=== PATIENT | female | born 1950 | race Asian ===

== ENCOUNTER 2020-01-22 10:18 | Inpatient (IN) | payer SELFPAY ==
[~2020-01-22] VITALS: Ht 152.4 cm; Wt 48.2 kg
[2020-01-22 10:40] VITALS: BP 152/123
[2020-01-22] MEDS ORDERED: ASPIRIN81 MG ORAL (10:57)
[2020-01-22] MEDS ORDERED: ATENOLOL50 MG ORAL (10:57)
[2020-01-22] MEDS ORDERED: AMLODIPINE BESY10 MG ORAL (10:57)
[2020-01-22] MEDS ORDERED: CLOPIDOGREL75 MG ORAL (10:57)
[2020-01-22] MEDS ORDERED: PACERONE100 MG ORAL (10:57)
--- NOTE | 2020-01-22 11:27 | Emergency Room Report ---
History of Present Illness General Chief Complaint: Hypertension Source: Patient, Family Member Present Illness HPI This patient is accompanied by her daughter. The daughter is the primary historian. The patient is from [facility] and only speaks Faroese. She returned from [facility] 2 months ago. She has a history of atrial fibrillation. She presents because she has had a rapid heart rate, generalized weakness, high blood pressure and some difficulty breathing. She denies fever or chills, cough or congestion, nausea or vomiting. She has no other complaints. 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: No Patient History Past Medical History: HTN, AFib Social History: Denies: smoking, alcohol use, drug use Reviewed Nursing Documentation: PMH: Agreed; PSxH: Agreed Nursing Documentation-PMH Hx Cardiac Problems: Yes - BLOOD CLOTS 20YRS AGO Hx Hypertension: Yes Review of Systems All Other Systems: negative except mentioned in HPI Physical Exam Vital Signs Date Time Temp Pulse Resp B/P (MAP) Pulse Ox O2 Delivery O2 Flow Rate FiO2 01/22/20 10:35 98.4 110 19 152/123 (133) 98 Room Air Sp02 EP Interpretation: reviewed, normal General Appearance: no apparent distress, alert, GCS 15, non-toxic Head: normocephalic, atraumatic Eyes: bilateral eye normal inspection, bilateral eye PERRL ENT: hearing grossly normal, normal pharynx, no angioedema, normal voice Neck: normal inspection, full range of motion Respiratory: chest non-tender, lungs clear, normal breath sounds, no respiratory distress, no retraction, no accessory muscle use, speaking full sentences Cardiovascular #1: no edema, tachycardia, irregularly irregular Gastrointestinal: normal bowel sounds, non tender, soft, non-distended, no guarding, no rebound Rectal: deferred Musculoskeletal: back normal, normal range of motion, calf tenderness, gait/ station normal, non-tender Neurologic: alert, motor strength/tone normal, oriented x3, sensory intact, responsive, speech normal Psychiatric: judgement/insight normal, memory normal, mood/affect normal, no suicidal/homicidal ideation Skin: no rash, normal color Medical Decision Making Diagnostic Impression: Primary Impression: Atrial fibrillation with RVR Additional Impressions: Pneumonia Suspected COVID-19 virus infection Transaminitis Renal failure ER Course This patient presents with A. fib with RVR. The patient's rate was relatively controlled with rates in the high 90s and low 100s. More concerning, was the patient's finding on chest x-ray which showed a right lower lobe opacity. Also , the patient was found to have lymphopenia, transaminitis and renal failure which is also consistent with COVID-19. I suspect the patient has a COVID-19 infection. However, the patient is overall well-appearing. Patient's oxygen saturation is within normal limits on room air. She did not require any type of respiratory intervention. I did go ahead and treat the patient with broad- spectrum antibiotics for possible community-acquired pneumonia. I also gave the patient a dose of oral Eliquis as current thought on COVID-19 infections that there is coagulopathy related to micro thrombosis. Given the patient's known atrial fibrillation and DVT, the patient is high risk if she indeed has COVID-19. The patient will be admitted for further monitoring and further evaluation and treatment. This patient was evaluated in the context of the global COVID-19 pandemic, which necessitated consideration that the patient might be at risk for infection with the [id number] virus that causes COVID-19. Institutional protocols and algorithms that pertain to the evaluation of patients at risk for COVID-19 and the state of rapid change based on information released by multiple regulatory bodies including the CDC and federal and state organizations. These policies and algorithms were followed during the patient' s care in the ED. Laboratory Tests Test 01/22/20 11:25 White Blood Count 9.2 K/UL (4.8-10.8) Red Blood Count 4.37 M/UL (4.20-5.40) Hemoglobin 13.7 G/DL (12.0-16.0) Hematocrit 39.1 % (37.0-47.0) Mean Corpuscular Volume 89 FL (80-99) Mean Corpuscular Hemoglobin 31.5 PG (27.0-31.0) H Mean Corpuscular Hemoglobin Concent 35.2 G/DL (32.0-36.0) Red Cell Distribution Width 14.0 % (11.6-14.8) Platelet Count 174 K/UL (150-450) Mean Platelet Volume 7.3 FL (6.5-10.1) Neutrophils (%) (Auto) 76.5 % (45.0-75.0) H Lymphocytes (%) (Auto) 17.5 % (20.0-45.0) L Monocytes (%) (Auto) 5.3 % (1.0-10.0) Eosinophils (%) (Auto) 0.0 % (0.0-3.0) Basophils (%) (Auto) 0.7 % (0.0-2.0) Sodium Level 136 MMOL/L (136-145) Potassium Level 4.6 MMOL/L (3.5-5.1) Chloride Level 100 MMOL/L (98-107) Carbon Dioxide Level 22 MMOL/L (21-32) Anion Gap 14 mmol/L (5-15) Blood Urea Nitrogen 44 mg/dL (7-18) H Creatinine 1.8 MG/DL (0.55-1.30) H Estimated Glomerular Filtration Rate 27.8 mL/min (>60) Glucose Level 138 MG/DL (74-106) H Calcium Level 8.2 MG/DL (8.5-10.1) L Total Bilirubin 0.8 MG/DL (0.2-1.0) Aspartate Amino Transferase (AST) 121 U/L (15-37) H Alanine Aminotransferase (ALT) 147 U/L (12-78) H Alkaline Phosphatase 120 U/L (46-116) H Troponin I 0.003 ng/mL (0.000-0.056) Total Protein 6.6 G/DL (6.4-8.2) Albumin 3.2 G/DL (3.4-5.0) L Globulin 3.4 g/dL Albumin/Globulin Ratio 0.9 (1.0-2.7) L Thyroid Stimulating Hormone (TSH) 4.475 uiU/mL (0.358-3.740) Free Thyroxine 1.39 NG/DL (0.76-1.46) Free Triiodothyronine 1.3 pg/mL (2.3-4.2) L EKG Diagnostic Results Rate: tachycardiac Rhythm: other - A.fib ST Segments: no acute changes Other Impression RBBB Rhythm Strip Diag. Results EP Interpretation: yes Rate: 100's Rhythm: other - A.fib Chest X-Ray Diagnostic Results Chest X-Ray Diagnostic Results : Chest X-Ray Ordered: Yes # of Views/Limited/Complete: 1 View Indication: Chest Pain EP Interpretation: Yes Interpretation: other - LLL opacity. Impression: Other - LLL PNA Electronically Signed by: Beth Andre DO CT/MRI/US Diagnostic Results CT/MRI/US Diagnostic Results : Imaging Test Ordered: CT head, CT Chest: Impression CT head: No acute findings. Specifically no intracranial bleed, mass effect or edema. See official report. CT Chest:IMPRESSION: RIGHT LUNG INFILTRATES IN THE RIGHT MIDLUNG ALONG THE FISSURE AND ALSO ALONG THE RIGHT HEART MARGIN. BILATERAL PLEURAL EFFUSIONS RIGHT GREATER THAN LEFT. PATTERN OF INFILTRATES AND EFFUSIONS NOT TYPICAL FOR A VIRAL PNEUMONITIS. SUSPICION FOR COVID 19 IS LOW. Last Vital Signs Date Time Temp Pulse Resp B/P (MAP) Pulse Ox O2 Delivery O2 Flow Rate FiO2 01/22/20 10:35 98.4 110 19 152/123 (133) 98 Room Air Disposition: ADMITTED INPATIENT Condition: Serious Beth Andre DO January 22, 2020 11:27
[2020-01-22] MEDS ORDERED: Azithromycin 500 MG in NS 275 ML IV ONE (11:30)
[2020-01-22] MEDS ORDERED: cefTRIAXone 1 GM in NS 55 ML IVPB ONE (11:30)
--- NOTE | 2020-01-22 11:30 | Diagnostic Imaging Report ---
Procedure: XRAY Chest 1v Reason for study: Shortness of breath. Comparison films: None. FINDINGS: A single one view chest is obtained. There is mild to moderate vascular prominence. Right basilar infiltrate with small right effusion noted. There is cardiomegaly . The bony thorax appear unremarkable. IMPRESSION: Right basilar infiltrate and small effusion.
[2020-01-22 11:35] LABS: BASOPHILS % (AUTO) 0.7 % (0.0-2.0); HEMATOCRIT 39.1 % (37.0-47.0); HEMOGLOBIN 13.7 G/DL (12.0-16.0); LYMPHOCYTES % (AUTO) 17.5 % (20.0-45.0); MEAN CORPUSCULAR VOLUME 89 FL (80-99); MONOCYTES % (AUTO) 5.3 % (1.0-10.0); NEUTROPHILS % (AUTO) 76.5 % (45.0-75.0); PLATELET COUNT 174 K/UL (150-450); RED BLOOD COUNT 4.37 M/UL (4.20-5.40); WHITE BLOOD COUNT 9.2 K/UL (4.8-10.8)
[2020-01-22 11:46] LABS: ANION GAP 14 mmol/L (5-15); BLOOD UREA NITROGEN 44 mg/dL (7-18); CALCIUM 8.2 MG/DL (8.5-10.1); CARBON DIOXIDE 22 MMOL/L (21-32); CHLORIDE 100 MMOL/L (98-107); CREATININE 1.8 MG/DL (0.55-1.30); POTASSIUM 4.6 MMOL/L (3.5-5.1); SODIUM 136 MMOL/L (136-145)
[2020-01-22 12:01] LABS: ALANINE AMINOTRANSFERASE 147 U/L (12-78); ALBUMIN 3.2 G/DL (3.4-5.0); ALBUMIN/GLOBULIN RATIO 0.9 (1.0-2.7); ALKALINE PHOSPHATASE 120 U/L (46-116); ASPARTATE AMINO TRANSFERASE 121 U/L (15-37); BILIRUBIN,TOTAL 0.8 MG/DL (0.2-1.0)
[2020-01-22 12:30] VITALS: BP 135/101
--- NOTE | 2020-01-22 14:00 | Diagnostic Imaging Report ---
EXAM: CT CT Head no Contrast INDICATION: Reason For Exam: AMS. TECHNIQUE: Axial images of the brain were obtained with subsequent sagittal and coronal reformats. All CT scans at this facility are performed using dose modulation techniques as appropriate to a performed exam including the following: automated exposure control with adjustment of the mA and/or kV according to patient size. COMPARISON STUDY: None. RADIATION DOSE: CTDIvol: 53.4 mGy DLP: 885.2 mGy-cm Dose information generated by the CT scanner is available in PACS. FINDINGS: There is age related senescent changes with ventricular and sulcal prominence. White matter micro-ischemic changes noted. There is a tiny old lacunar in the right thalamus. There is no acute large territory cortical infarct, hemorrhage, mass effect or shift. Ventricles and cisterns as well as brainstem and posterior fossa appear unremarkable. The sellar region is normal. Sinuses, mastoid air cells and bony calvarium appear intact. IMPRESSION: Age related senescent changes and tiny old lacunar in the right thalamus. No acute intracranial abnormality.
--- NOTE | 2020-01-22 14:05 | Diagnostic Imaging Report ---
EXAM: CT CT Chest no Contrast CLINICAL HISTORY: Chest pain and shortness of breath. Suspect Covid-19 infection. TECHNIQUE: Axial images obtained through the chest without contrast. All CT scans at this facility are performed using dose modulation techniques as appropriate to a performed exam including the following: automated exposure control with adjustment of the mA and/or kV according to patient size. RADIATION DOSE: CTDIvol: 3.4 mGy DLP: 130.4 mGy-cm Dose information generated by the CT scanner is available in PACS. COMPARISON: Chest x-ray 01/22/2020 FINDINGS: There are bilateral pleural effusions right greater than left. Infiltrate noted at the right lung base along the right heart margin. Some streaky densities noted in the right upper lobe. There is a peripheral density in the right midlung abutting the fissure perhaps focal inflammatory disease as well. Cardiac silhouette is enlarged. There is no pathologic size adenopathy. Limited images through the upper abdomen show no acute disease. A small splenic artery aneurysm demonstrated. IMPRESSION: RIGHT LUNG INFILTRATES IN THE RIGHT MIDLUNG ALONG THE FISSURE AND ALSO ALONG THE RIGHT HEART MARGIN. BILATERAL PLEURAL EFFUSIONS RIGHT GREATER THAN LEFT. PATTERN OF INFILTRATES AND EFFUSIONS NOT TYPICAL FOR A VIRAL PNEUMONITIS. SUSPICION FOR COVID 19 IS LOW.
--- NOTE | 2020-01-22 14:07 | Consultation ---
History of Present Illness General Chief Complaint: Hypertension Present Illness HPI This is a 69 year old female with the past medical history of hypertension, hyperlipidemia, atrial fibrillation who presented to the ED with rapid heart rate, generalized weakness, high blood pressure and some difficulty breathing. She has no other complaints. Patient returned to the from [facility] 2 months ago. She denies fever or chills, cough or congestion, nausea or vomiting.In ED she was found to have a low grade rapid atrial fibrillation with ANDREA and elevated LFTs on labs. CT chest showed bilateral pleural effusions and rigth base infiltrate. Patient started on broad spectrum antibiotics and referred for admission. COVID19 PCR sent. Allergies: Coded Allergies: No Known Allergies (Unverified , 01/22/20) Medication History Scheduled Amiodarone Hcl* (Pacerone*), 100 MG ORAL EVERY 8 HOURS, (Reported) Amlodipine Besylate* (Amlodipine Besylate*), 10 MG ORAL DAILY, (Reported) Aspirin* (Aspirin*), 81 MG ORAL DAILY, (Reported) Atenolol* (Tenormin*), 50 MG ORAL DAILY, (Reported) Clopidogrel* (Clopidogrel*), 75 MG ORAL DAILY, (Reported) Patient History Limited by: language barrier Healthcare decision maker Resuscitation status Advanced Directive on File Review of Systems All Other Systems: negative except mentioned in HPI Physical Exam General Appearance: WD/WN, no apparent distress Lines, tubes and drains: peripheral HEENT: normocephalic, atraumatic Neck: non-tender, normal alignment Respiratory/Chest: rhonchi - bilaterally Cardiovascular/Chest: normal peripheral pulses, no JVD, irregularly irregular Abdomen: normal bowel sounds Extremities: non-tender Skin Exam: normal pigmentation Last 24 Hour Vital Signs Date Time Temp Pulse Resp B/P (MAP) Pulse Ox O2 Delivery O2 Flow Rate FiO2 01/22/20 10:40 98.4 105 19 152/123 98 Room Air 01/22/20 10:40 110 19 Room Air 01/22/20 10:35 98.4 110 19 152/123 (133) 98 Room Air Laboratory Tests Test 01/22/20 11:25 White Blood Count 9.2 K/UL (4.8-10.8) Red Blood Count 4.37 M/UL (4.20-5.40) Hemoglobin 13.7 G/DL (12.0-16.0) Hematocrit 39.1 % (37.0-47.0) Mean Corpuscular Volume 89 FL (80-99) Mean Corpuscular Hemoglobin 31.5 PG (27.0-31.0) H Mean Corpuscular Hemoglobin Concent 35.2 G/DL (32.0-36.0) Red Cell Distribution Width 14.0 % (11.6-14.8) Platelet Count 174 K/UL (150-450) Mean Platelet Volume 7.3 FL (6.5-10.1) Neutrophils (%) (Auto) 76.5 % (45.0-75.0) H Lymphocytes (%) (Auto) 17.5 % (20.0-45.0) L Monocytes (%) (Auto) 5.3 % (1.0-10.0) Eosinophils (%) (Auto) 0.0 % (0.0-3.0) Basophils (%) (Auto) 0.7 % (0.0-2.0) Sodium Level 136 MMOL/L (136-145) Potassium Level 4.6 MMOL/L (3.5-5.1) Chloride Level 100 MMOL/L (98-107) Carbon Dioxide Level 22 MMOL/L (21-32) Anion Gap 14 mmol/L (5-15) Blood Urea Nitrogen 44 mg/dL (7-18) H Creatinine 1.8 MG/DL (0.55-1.30) H Estimat Glomerular Filtration Rate 27.8 mL/min (>60) Glucose Level 138 MG/DL (74-106) H Calcium Level 8.2 MG/DL (8.5-10.1) L Total Bilirubin 0.8 MG/DL (0.2-1.0) Aspartate Amino Transf (AST/SGOT) 121 U/L (15-37) H Alanine Aminotransferase (ALT/SGPT) 147 U/L (12-78) H Alkaline Phosphatase 120 U/L (46-116) H Troponin I 0.003 ng/mL (0.000-0.056) Total Protein 6.6 G/DL (6.4-8.2) Albumin 3.2 G/DL (3.4-5.0) L Globulin 3.4 g/dL Albumin/Globulin Ratio 0.9 (1.0-2.7) L Thyroid Stimulating Hormone (TSH) 4.475 uiU/mL (0.358-3.740) Free Thyroxine 1.39 NG/DL (0.76-1.46) Free Triiodothyronine 1.3 pg/mL (2.3-4.2) L Height (Feet): 5 Weight (Pounds): 108 Medications Current Medications Medications (Trade) Dose Ordered Sig/Thao Route PRN Reason Start Time Stop Time Status Last Admin Dose Admin Apixaban (Eliquis) 5 mg BID ORAL 01/22/20 12:45 04/21/20 12:44 Assessment/Plan Diagnosis [place] I: #ANDREA - likely pre-renal azotemia in the setting of renal hypoperfusion due to RVR and sepsis #Sepsis - r/o COVID #Hypoxemic resp failure due to pneumonia - r/o COVID # Elevated LFTs #HTN #Afib #HLD - continue NS at 75cc/hr - monitor Cr and electrolytes - ID eval - pulm eval - antibiotics per ID - cardiology eval for afib RVR - monitor bmp , mag and phos daily - avoid nephrotoxins - strict I&Os - daily weights Deo Crespo M.D. January 22, 2020 14:07
[2020-01-22 14:40] VITALS: BP 130/98
[2020-01-22] MEDS: Eliquis 5mg tablet ORAL SCH ×2 (14:48→17:00)
[2020-01-22 15:32] LABS: APPEARANCE,URINE CLOUDY; BILIRUBIN, URINE NEGATIVE (NEGATIVE); GLUCOSE, URINE (UA) NEGATIVE (NEGATIVE); KETONES,URINE 1+ (NEGATIVE); LEUKOCYTE ESTERASE ,URINE 3+ (NEGATIVE); NITRITE,URINE NEGATIVE (NEGATIVE); PH,URINE 5 (4.5-8.0); PROTEIN,URINE 3+ (NEGATIVE); UROBILINOGEN,URINE 1 MG/DL (0.0-1.0)
[2020-01-22 15:35] LABS: COLOR,URINE YELLOW
--- NOTE | 2020-01-22 15:37 | History and Physical ---
History of Present Illness General Date patient seen: January 22, 2020 Time patient seen: 15:36 Reason for Hospitalization: Hypertension Present Illness HPI 69 year old woman with HTN, atrial fibrillation who presented to the ED for rapid heart rate, generalized weakness, high blood pressure and some difficulty breathing. She denies fever or chills, cough or congestion, nausea or vomiting. She has no other complaints. Patient returned to the from [facility] 2 months ago. History obtained from medical record due to language barrier. In ED she was found to have a low grade rapid atrial fibrillation with ANDREA and elevated LFTs on labs. CT chest showed bilateral pleural effusions and rigth base infiltrate. Patient started on broad spectrum antibiotics and referred for admission. COVID19 PCR sent. Family Hx: Unable to obtain Social Hx: Unable to obtain Allergies: Coded Allergies: No Known Allergies (Unverified , 01/22/20) COVID-19 Screening Contact w/high risk pt: No Recent Travel to affected area: Yes Experienced COVID-19 symptoms?: No Medication History Scheduled Amiodarone Hcl* (Pacerone*), 100 MG ORAL EVERY 8 HOURS, (Reported) Amlodipine Besylate* (Amlodipine Besylate*), 10 MG ORAL DAILY, (Reported) Aspirin* (Aspirin*), 81 MG ORAL DAILY, (Reported) Atenolol* (Tenormin*), 50 MG ORAL DAILY, (Reported) Clopidogrel* (Clopidogrel*), 75 MG ORAL DAILY, (Reported) Patient History Healthcare decision maker Resuscitation status Advanced Directive on File Review of Systems Constitutional: Denies: chills, fever ENT: Denies: ear pain Respiratory: Denies: cough Cardiovascular: Denies: chest pain Gastrointestinal: Denies: abdominal pain Genitourinary: Denies: dysuria Musculoskeletal: Denies: back pain Physical Exam General Appearance: no apparent distress, alert Neck: normal alignment, supple Respiratory/Chest: lungs clear, normal breath sounds, no respiratory distress, no accessory muscle use Cardiovascular/Chest: normal rate, regular rhythm Abdomen: non tender, soft, no organomegaly, no mass Neurologic: no motor/sensory deficits, alert, oriented x 3 Last 24 Hour Vital Signs Date Time Temp Pulse Resp B/P (MAP) Pulse Ox O2 Delivery O2 Flow Rate FiO2 01/22/20 14:40 98.1 99 18 130/98 100 Room Air 5/22/20 12:30 18 135/101 100 Room Air 01/22/20 10:40 98.4 105 19 152/123 98 Room Air 01/22/20 10:40 110 19 Room Air 01/22/20 10:35 98.4 110 19 152/123 (133) 98 Room Air Laboratory Tests Test 01/22/20 11:25 01/22/20 14:48 White Blood Count 9.2 K/UL (4.8-10.8) Red Blood Count 4.37 M/UL (4.20-5.40) Hemoglobin 13.7 G/DL (12.0-16.0) Hematocrit 39.1 % (37.0-47.0) Mean Corpuscular Volume 89 FL (80-99) Mean Corpuscular Hemoglobin 31.5 PG (27.0-31.0) H Mean Corpuscular Hemoglobin Concent 35.2 G/DL (32.0-36.0) Red Cell Distribution Width 14.0 % (11.6-14.8) Platelet Count 174 K/UL (150-450) Mean Platelet Volume 7.3 FL (6.5-10.1) Neutrophils (%) (Auto) 76.5 % (45.0-75.0) H Lymphocytes (%) (Auto) 17.5 % (20.0-45.0) L Monocytes (%) (Auto) 5.3 % (1.0-10.0) Eosinophils (%) (Auto) 0.0 % (0.0-3.0) Basophils (%) (Auto) 0.7 % (0.0-2.0) Sodium Level 136 MMOL/L (136-145) Potassium Level 4.6 MMOL/L (3.5-5.1) Chloride Level 100 MMOL/L (98-107) Carbon Dioxide Level 22 MMOL/L (21-32) Anion Gap 14 mmol/L (5-15) Blood Urea Nitrogen 44 mg/dL (7-18) H Creatinine 1.8 MG/DL (0.55-1.30) H Estimat Glomerular Filtration Rate 27.8 mL/min (>60) Glucose Level 138 MG/DL (74-106) H Calcium Level 8.2 MG/DL (8.5-10.1) L Total Bilirubin 0.8 MG/DL (0.2-1.0) Aspartate Amino Transf (AST/SGOT) 121 U/L (15-37) H Alanine Aminotransferase (ALT/SGPT) 147 U/L (12-78) H Alkaline Phosphatase 120 U/L (46-116) H Troponin I 0.003 ng/mL (0.000-0.056) Total Protein 6.6 G/DL (6.4-8.2) Albumin 3.2 G/DL (3.4-5.0) L Globulin 3.4 g/dL Albumin/Globulin Ratio 0.9 (1.0-2.7) L Thyroid Stimulating Hormone (TSH) 4.475 uiU/mL (0.358-3.740) Free Thyroxine 1.39 NG/DL (0.76-1.46) Free Triiodothyronine 1.3 pg/mL (2.3-4.2) L Urine Color Yellow Urine Appearance Cloudy Urine pH 5 (4.5-8.0) Urine Specific [place] 1.025 (1.005-1.035) Urine Protein 3+ (NEGATIVE) H Urine Glucose (UA) Negative (NEGATIVE) Urine Ketones 1+ (NEGATIVE) H Urine Blood 3+ (NEGATIVE) H Urine Nitrite Negative (NEGATIVE) Urine Bilirubin Negative (NEGATIVE) Urine Urobilinogen 1 MG/DL (0.0-1.0) H Urine Leukocyte Esterase 3+ (NEGATIVE) H Urine RBC Pending Urine WBC Pending Urine Squamous Epithelial Cells Pending Urine Bacteria Pending Height (Feet): 5 Weight (Pounds): 108 Medications Current Medications Medications (Trade) Dose Ordered Sig/Thao Route PRN Reason Start Time Stop Time Status Last Admin Dose Admin Apixaban (Eliquis) 5 mg BID ORAL 01/22/20 12:45 04/21/20 12:44 01/22/20 14:48 Assessment/Plan Assessment/Plan: 69 year old woman with HTN and atrial fibrillation who presents with: #Rapid atrial fibrillation, likely brought on by underlying pneumonia #HTN -admit to telemetry -contnuous cardiac monitoring -continue atenolol, amiodarone -Cardiology consulted, Dr. Brunson #Bilateral pleural effuions #Right basilar pneumonia #Rule out COVID -continue azithromycin and ceftriaxone -check sputum culture -supplemental oxygen prn -Inhaled bronchodilators prn -COVID19 precautions -COVID19 PCR pending -ID and Pulm consulted #ANDREA -IV fluids -Check UA -Nephrology consulted #Elevated liver transaminases and alk phos -could be related to underlying pneumonia vs COVID -monitor daily LFTs I spent 75 minutes on this patient's case, and 40 minutes was dedicated to counseling and/or care coordination with consulting MDs, PCP, RN Odin Fermin MD January 22, 2020 15:37
[2020-01-22] MEDS ORDERED: DiphenhydrAMINE 25mg Tab ORAL PRN (15:45)
[2020-01-22] MEDS ORDERED: Mylanta II UD 30ml ORAL PRN (15:45)
[2020-01-22] MEDS ORDERED: Albuterol/Ipratropium 3ml neb HHN PRN (15:45)
[2020-01-22 16:33] VITALS: BP 124/99
--- NOTE | 2020-01-22 18:06 | Infectious Diseases Prog Note ---
Assessment/Plan Assessment/Plan Full consult dictated: A) 1) CAP 2) rule out covid-19 virus infection/pna 3) pmh noted P) 1) rocephin and azithromycin 2) f/u on labs, chest x-ray and covid-19 testing 3) thank you Subjective Allergies: Coded Allergies: No Known Allergies (Unverified , 01/22/20) Objective Vital Signs Last 24 Hour Vital Signs Date Time Temp Pulse Resp B/P (MAP) Pulse Ox O2 Delivery O2 Flow Rate FiO2 01/22/20 16:38 103 01/22/20 16:33 98.0 110 18 124/99 (107) 98 01/22/20 16:30 Room Air 01/22/20 14:40 98.1 99 18 130/98 100 Room Air 01/22/20 12:30 18 135/101 100 Room Air 01/22/20 10:40 98.4 105 19 152/123 98 Room Air 01/22/20 10:40 110 19 Room Air 01/22/20 10:35 98.4 110 19 152/123 (133) 98 Room Air Height (Feet): 5 Height (Inches): 0.00 Weight (Pounds): 108 Laboratory Tests Test 01/22/20 11:25 01/22/20 14:48 White Blood Count 9.2 K/UL (4.8-10.8) Red Blood Count 4.37 M/UL (4.20-5.40) Hemoglobin 13.7 G/DL (12.0-16.0) Hematocrit 39.1 % (37.0-47.0) Mean Corpuscular Volume 89 FL (80-99) Mean Corpuscular Hemoglobin 31.5 PG (27.0-31.0) H Mean Corpuscular Hemoglobin Concent 35.2 G/DL (32.0-36.0) Red Cell Distribution Width 14.0 % (11.6-14.8) Platelet Count 174 K/UL (150-450) Mean Platelet Volume 7.3 FL (6.5-10.1) Neutrophils (%) (Auto) 76.5 % (45.0-75.0) H Lymphocytes (%) (Auto) 17.5 % (20.0-45.0) L Monocytes (%) (Auto) 5.3 % (1.0-10.0) Eosinophils (%) (Auto) 0.0 % (0.0-3.0) Basophils (%) (Auto) 0.7 % (0.0-2.0) Sodium Level 136 MMOL/L (136-145) Potassium Level 4.6 MMOL/L (3.5-5.1) Chloride Level 100 MMOL/L (98-107) Carbon Dioxide Level 22 MMOL/L (21-32) Anion Gap 14 mmol/L (5-15) Blood Urea Nitrogen 44 mg/dL (7-18) H Creatinine 1.8 MG/DL (0.55-1.30) H Estimat Glomerular Filtration Rate 27.8 mL/min (>60) Glucose Level 138 MG/DL (74-106) H Calcium Level 8.2 MG/DL (8.5-10.1) L Total Bilirubin 0.8 MG/DL (0.2-1.0) Aspartate Amino Transf (AST/SGOT) 121 U/L (15-37) H Alanine Aminotransferase (ALT/SGPT) 147 U/L (12-78) H Alkaline Phosphatase 120 U/L (46-116) H Troponin I 0.003 ng/mL (0.000-0.056) Total Protein 6.6 G/DL (6.4-8.2) Albumin 3.2 G/DL (3.4-5.0) L Globulin 3.4 g/dL Albumin/Globulin Ratio 0.9 (1.0-2.7) L Thyroid Stimulating Hormone (TSH) 4.475 uiU/mL (0.358-3.740) Free Thyroxine 1.39 NG/DL (0.76-1.46) Free Triiodothyronine 1.3 pg/mL (2.3-4.2) L Urine Color Yellow Urine Appearance Cloudy Urine pH 5 (4.5-8.0) Urine Specific [place] 1.025 (1.005-1.035) Urine Protein 3+ (NEGATIVE) H Urine Glucose (UA) Negative (NEGATIVE) Urine Ketones 1+ (NEGATIVE) H Urine Blood 3+ (NEGATIVE) H Urine Nitrite Negative (NEGATIVE) Urine Bilirubin Negative (NEGATIVE) Urine Urobilinogen 1 MG/DL (0.0-1.0) H Urine Leukocyte Esterase 3+ (NEGATIVE) H Urine RBC 2-4 /HPF (0 - 2) H Urine WBC 5-10 /HPF (0 - 2) H Urine Squamous Epithelial Cells None /LPF (NONE/OCC) Urine Bacteria Many /HPF (NONE) H Current Medications Medications (Trade) Dose Ordered Sig/Thao Route PRN Reason Start Time Stop Time Status Last Admin Dose Admin Acetaminophen (Tylenol) 650 mg Q4H PRN ORAL Mild Pain (Pain Scale 1-3) 01/22/20 15:45 02/21/20 15:44 Al Hydroxide/Mg Hydroxide (Mylanta II) 30 ml Q6H PRN ORAL dyspepsia 01/22/20 15:45 02/21/20 15:44 Albuterol/ Ipratropium (Albuterol/ Ipratropium) 3 ml Q6H PRN HHN Shortness of Breath 01/22/20 15:45 01/27/20 15:44 Amiodarone HCl (Cordarone) 100 mg EVERY 8 HOURS ORAL 01/22/20 22:00 04/21/20 21:59 Amlodipine Besylate (Norvasc) 10 mg DAILY ORAL 01/23/20 09:00 02/22/20 08:59 Apixaban (Eliquis) 5 mg BID ORAL 01/22/20 12:45 04/21/20 12:44 01/22/20 17:00 Aspirin (ASA) 81 mg DAILY ORAL 01/23/20 09:00 03/08/20 08:59 Atenolol (Tenormin) 50 mg DAILY ORAL 01/23/20 09:00 02/22/20 08:59 Azithromycin (Zithromax) 500 mg DAILY ORAL 01/23/20 09:00 01/30/20 08:59 Ceftriaxone Sodium 1 gm/ Dextrose 55 ml @ 110 mls/hr DAILY IVPB 01/23/20 09:00 01/30/20 08:59 Dextrose (Dextrose 50%) 25 ml Q30M PRN IV Hypoglycemia 01/22/20 15:45 04/21/20 15:44 Dextrose (Dextrose 50%) 50 ml Q30M PRN IV Hypoglycemia 01/22/20 15:45 04/21/20 15:44 Diphenhydramine HCl (Benadryl) 25 mg Q6H PRN ORAL Itching/Pruritis 01/22/20 15:45 02/21/20 15:44 Docusate Sodium (Colace) 100 mg EVERY 12 HOURS ORAL 01/22/20 21:00 02/21/20 20:59 Ondansetron HCl (Zofran) 4 mg Q6H PRN IVP Nausea & Vomiting 01/22/20 15:45 02/21/20 15:44 Sodium Chloride 1,000 ml @ 75 mls/hr [id number] IV 01/22/20 17:00 02/21/20 16:59 01/22/20 17:00 Rakan Yanez MD January 22, 2020 18:06
[2020-01-22 20:00] VITALS: BP 119/74
[2020-01-22] MEDS: Docusate 100mg cap ORAL SCH (20:28)
[2020-01-22] MEDS: Amiodarone 200mg tab ORAL SCH (22:00)
[2020-01-23] VITALS: BP 111/81
--- NOTE | 2020-01-23 00:15 | Consultation ---
DATE OF CONSULTATION: 01/22/2020 ATTENDING PHYSICIAN: Deo Crespo MD REFERRING PHYSICIANS: Deo Crespo MD and Odin Fermin MD REASON FOR CONSULTATION: Pneumonia. CHIEF COMPLAINT: The patient's chief complaint coming into the hospital is atrial fibrillation with rapid ventricular response. HPI: This is a 69-year-old female who comes into [facility] with right atrial pressure with rapid ventricular response. The patient is noted to have pneumonia. She has possible community-acquired pneumonia, is on Rocephin and azithromycin. The patient is also being ruled out for COVID-19 virus infection, pneumonia. Infectious disease consultation is requested. REVIEW OF SYSTEMS: CONSTITUTIONAL: Generalized fatigue. Opens eyes. HEAD AND NECK: No head pain or neck pain. CARDIAC: No chest pain. GASTROINTESTINAL: No nausea, vomiting, diarrhea. GENITOURINARY: No Malin. PULMONARY: Mild congestion and shortness of breath. SKIN: No rash. NEUROLOGIC: No seizures. PAST MEDICAL HISTORY: The patient has past medical history of hypertension, atrial fibrillation with rapid ventricular response, acute kidney injury, elevated LFTs. ALLERGIES: No known drug allergies. No antibiotic allergies. SOCIAL HISTORY: Negative for smoking, alcohol, drug abuse. FAMILY HISTORY: Noncontributory. MEDICATIONS: Upon reviewing the MAR, she is on following medications: Amlodipine, aspirin, atenolol, azithromycin, Rocephin, amiodarone, acetaminophen, Zofran, diphenhydramine. Outside medications noted and reconciled. PHYSICAL EXAMINATION: VITAL SIGNS: Temperature is 98.0, pulse rate 103, respirations 18, blood pressure 124/99, saturation 98%. GENERAL: Alert, responsive, no acute distress. HEAD AND NECK: Oral exam, no thrush. Eye exam, no icterus. Normocephalic. Neck is supple. HEART: Regular. No gallop or murmur. Occasionally irregular. ABDOMEN: Soft. Positive bowel sounds. Nontender. LUNGS: Bilateral rhonchi with right-sided rales. MUSCULOSKELETAL: No effusion. Legs without cellulitis. PERIPHERAL VASCULAR: No gangrene or cyanosis. SKIN: No other rash. GENITOURINARY: The patient has no Malin. LINES: Line sites without phlebitis. NEUROLOGIC: Alert and responsive. LABORATORY DATA: Creatinine 1.8. White count 9.2, hemoglobin 13.7. UA had 5-10 white blood cells, many bacteria. IMAGING STUDIES: Chest x-ray shows right infiltrate. CT scan of the chest shows right lung infiltrate and effusions. ASSESSMENT/PLAN: 1. The patient has community-acquired pneumonia, rule out COVID-19 virus infection. Rule out UTI. Rule out COVID-19 virus pneumonia. Continue Rocephin and azithromycin to cover community-acquired pneumonia and UTI. Await COVID-19 virus infection testing. Follow up on chest x-ray, labs and sputum culture. Continue Rocephin and azithromycin for now. 2. Elevated creatinine, acute kidney injury. 3. Hypertension. 4. Blood pressure treatment per primary care team. 5. Atrial fibrillation with rapid ventricular response. 6. Effusions. 7. Elevated transaminases. 8. Continue treatment per primary consultants. 9. Orders were noted and entered. 10. No known drug allergies. 11. Social history negative. 12. Family history noncontributory. 13. MAR is noted. 14. Case discussed with . Rakan Yanez M.D. DR: DEB JOB#: [id number] CC:
[2020-01-23 04:00] VITALS: BP 132/86
[2020-01-23] MEDS: Amiodarone 200mg tab ORAL SCH ×3 (06:01→22:19)
[2020-01-23 08:00] VITALS: BP 128/87
[2020-01-23 08:50] LABS: BASOPHILS % (AUTO) 0.7 % (0.0-2.0); HEMATOCRIT 37.6 % (37.0-47.0); HEMOGLOBIN 13.4 G/DL (12.0-16.0); LYMPHOCYTES % (AUTO) 23.6 % (20.0-45.0); MEAN CORPUSCULAR VOLUME 90 FL (80-99); MONOCYTES % (AUTO) 6.8 % (1.0-10.0); NEUTROPHILS % (AUTO) 68.9 % (45.0-75.0); PLATELET COUNT 164 K/UL (150-450); RED CELL DISTRIBUTION WIDTH 13.9 % (11.6-14.8); WHITE BLOOD COUNT 9.4 K/UL (4.8-10.8)
[2020-01-23] MEDS: Eliquis 5mg tablet ORAL SCH ×2 (09:00→17:40)
[2020-01-23] MEDS: Aspirin Baby 81mg ORAL SCH (09:00)
[2020-01-23 09:44] LABS: ALANINE AMINOTRANSFERASE 369 U/L (12-78); ALBUMIN 2.9 G/DL (3.4-5.0); ALKALINE PHOSPHATASE 133 U/L (46-116); ANION GAP 17 mmol/L (5-15); ASPARTATE AMINO TRANSFERASE 377 U/L (15-37); BILIRUBIN,TOTAL 0.7 MG/DL (0.2-1.0); BLOOD UREA NITROGEN 51 mg/dL (7-18); CALCIUM 7.7 MG/DL (8.5-10.1); CARBON DIOXIDE 16 MMOL/L (21-32); CHLORIDE 100 MMOL/L (98-107); CREATININE 1.6 MG/DL (0.55-1.30); POTASSIUM 3.8 MMOL/L (3.5-5.1); SODIUM 133 MMOL/L (136-145)
[2020-01-23] MEDS: Azithromycin 250mg tab ORAL SCH (10:08)
[2020-01-23] MEDS: cefTRIAXone 1 GM in D5W 55 ML IVPB SCH (10:08)
[2020-01-23] MEDS: Docusate 100mg cap ORAL SCH ×2 (10:08→21:00)
[2020-01-23 12:00] VITALS: BP 135/90
--- NOTE | 2020-01-23 12:14 | General Progress Note ---
Assessment/Plan Assessment/Plan: Assessment #Afib RVR, on home atenolol and amiodarone #COVID vs CAP ; CXR w/ BL effusion and RLL infiltrate, CT chest confirms #ANDREA vs CKD #Transaminitis--> related to COVID as high suspicion vs will need abdominal US Plan Consultants include nephro, ID, pulm, Cardo Continue home cardiac medications as stated above, along w/ norvasc Azithromycin and Rocephin IV, [place] Cx,, Predictive Markers pending Elaquis BID for AC Trend liver enzymes, pending COVID predictive markers ( LDH, Ferritin, Ddimer, CRP); if liver enzymes continue to climb consider Abd US NS @ 75 cc/hr Cardiac Diet Subjective Date patient seen: January 23, 2020 Time patient seen: 12:00 Allergies: Coded Allergies: No Known Allergies (Unverified , 01/22/20) Subjective Patient sitting up in bed; doing well. Understands a little bit of [place]. Pleasant. Does endorse SOB. Objective Last 24 Hour Vital Signs Date Time Temp Pulse Resp B/P (MAP) Pulse Ox O2 Delivery O2 Flow Rate FiO2 01/23/20 08:00 97.1 91 20 128/87 (101) 97 01/23/20 08:00 120 01/23/20 04:00 98 01/23/20 04:00 98.0 89 18 132/86 (101) 97 01/23/20 00:00 98.4 98 18 111/81 (91) 98 01/23/20 00:00 93 01/22/20 21:18 Nasal Cannula 2.0 01/22/20 20:00 97.2 106 18 119/74 (89) 98 01/22/20 20:00 106 01/22/20 16:33 98.0 110 18 124/99 (107) 98 01/22/20 16:30 Room Air 01/22/20 16:25 103 01/22/20 14:40 98.1 99 18 130/98 100 Room Air 01/22/20 12:30 18 135/101 100 Room Air Intake and Output 01/22/20 01/23/20 19:00 07:00 Intake Total 150 ml Output Total 300 ml Balance 150 ml -300 ml Intake Oral 0 ml IV Total 150 ml Output Urine Total 300 ml # Voids 2 Laboratory Tests 01/22/20 14:48: Urine Color Yellow, Urine Appearance Cloudy, Urine pH 5, Urine Specific [place] 1.025, Urine Protein 3+H, Urine Glucose (UA) Negative, Urine Ketones 1+H, Urine Blood 3+H, Urine Nitrite Negative, Urine Bilirubin Negative, Urine Urobilinogen 1H, Urine Leukocyte Esterase 3+H, Urine RBC 2-4H, Urine WBC 5-10H, Urine Squamous Epithelial Cells None, Urine Bacteria ManyH 01/23/20 06:50: White Blood Count 9.4, Red Blood Count 4.20, Hemoglobin 13.4, Hematocrit 37.6, Mean Corpuscular Volume 90, Mean Corpuscular Hemoglobin 31.8H, Mean Corpuscular Hemoglobin Concent 35.5, Red Cell Distribution Width 13.9, Platelet Count 164, Mean Platelet Volume 6.6, Neutrophils (%) (Auto) 68.9, Lymphocytes (%) (Auto) 23.6, Monocytes (%) (Auto) 6.8, Eosinophils (%) (Auto) 0.0, Basophils (%) (Auto ) 0.7, Sodium Level 133L, Potassium Level 3.8, Chloride Level 100, Carbon Dioxide Level 16L, Anion Gap 17H, Blood Urea Nitrogen 51H, Creatinine 1.6H, Estimat Glomerular Filtration Rate 31.8, Glucose Level 104, Calcium Level 7.7L, Total Bilirubin 0.7, Aspartate Amino Transf (AST/SGOT) 377H, Alanine Aminotransferase (ALT/SGPT) 369H, Alkaline Phosphatase 133H, Total Protein 5.8L , Albumin 2.9L, Globulin 2.9, Albumin/Globulin Ratio 1.0 Height (Feet): 5 Height (Inches): 0.00 Weight (Pounds): 108 General Appearance: WD/WN, no apparent distress EENT: PERRL/EOMI Cardiovascular: normal rate, regular rhythm Respiratory/Chest: lungs clear, normal breath sounds, no respiratory distress Abdomen: non tender, soft Extremities: normal range of motion Neurologic: electronic scale tester II-XII grossly normal Cindi Velázquez D.O. January 23, 2020 12:14
--- NOTE | 2020-01-23 12:39 | Nephrology Progress Note ---
Assessment/Plan Plan #ANDREA - likely pre-renal azotemia in the setting of renal hypoperfusion due to RVR and sepsis #Sepsis - r/o COVID #Hypoxemic resp failure due to pneumonia - r/o COVID # Elevated LFTs #HTN #Afib #HLD - continue NS at 75cc/hr - monitor Cr and electrolytes - ID eval - pulm eval - antibiotics per ID - cardiology eval for afib RVR - monitor bmp , mag and phos daily - avoid nephrotoxins - strict I&Os - daily weights Subjective ROS Limited/Unobtainable: No Subjective breathing stable cr slowly downtrending Objective Objective Last 24 Hour Vital Signs Date Time Temp Pulse Resp B/P (MAP) Pulse Ox O2 Delivery O2 Flow Rate FiO2 01/23/20 08:00 97.1 91 20 128/87 (101) 97 01/23/20 08:00 120 01/23/20 04:00 98 01/23/20 04:00 98.0 89 18 132/86 (101) 97 01/23/20 00:00 98.4 98 18 111/81 (91) 98 01/23/20 00:00 93 01/22/20 21:18 Nasal Cannula 2.0 01/22/20 20:00 97.2 106 18 119/74 (89) 98 01/22/20 20:00 106 01/22/20 16:33 98.0 110 18 124/99 (107) 98 01/22/20 16:30 Room Air 01/22/20 16:25 103 01/22/20 14:40 98.1 99 18 130/98 100 Room Air Intake and Output 01/22/20 01/23/20 19:00 07:00 Intake Total 150 ml Output Total 300 ml Balance 150 ml -300 ml Intake Oral 0 ml IV Total 150 ml Output Urine Total 300 ml # Voids 2 Laboratory Tests 01/22/20 14:48: Urine Color Yellow, Urine Appearance Cloudy, Urine pH 5, Urine Specific [place] 1.025, Urine Protein 3+H, Urine Glucose (UA) Negative, Urine Ketones 1+H, Urine Blood 3+H, Urine Nitrite Negative, Urine Bilirubin Negative, Urine Urobilinogen 1H, Urine Leukocyte Esterase 3+H, Urine RBC 2-4H, Urine WBC 5-10H, Urine Squamous Epithelial Cells None, Urine Bacteria ManyH 01/23/20 06:50: White Blood Count 9.4, Red Blood Count 4.20, Hemoglobin 13.4, Hematocrit 37.6, Mean Corpuscular Volume 90, Mean Corpuscular Hemoglobin 31.8H, Mean Corpuscular Hemoglobin Concent 35.5, Red Cell Distribution Width 13.9, Platelet Count 164, Mean Platelet Volume 6.6, Neutrophils (%) (Auto) 68.9, Lymphocytes (%) (Auto) 23.6, Monocytes (%) (Auto) 6.8, Eosinophils (%) (Auto) 0.0, Basophils (%) (Auto ) 0.7, Sodium Level 133L, Potassium Level 3.8, Chloride Level 100, Carbon Dioxide Level 16L, Anion Gap 17H, Blood Urea Nitrogen 51H, Creatinine 1.6H, Estimat Glomerular Filtration Rate 31.8, Glucose Level 104, Calcium Level 7.7L, Total Bilirubin 0.7, Aspartate Amino Transf (AST/SGOT) 377H, Alanine Aminotransferase (ALT/SGPT) 369H, Alkaline Phosphatase 133H, Total Protein 5.8L , Albumin 2.9L, Globulin 2.9, Albumin/Globulin Ratio 1.0 Height (Feet): 5 Height (Inches): 0.00 Weight (Pounds): 108 General Appearance: WD/WN, no apparent distress EENT: PERRL/EOMI Neck: non-tender Cardiovascular: normal peripheral pulses Respiratory/Chest: chest wall non-tender, crackles/rales Abdomen: normal bowel sounds, non tender, soft Extremities: normal range of motion Neurologic: alert, oriented x 3 Deo Crespo M.D. January 23, 2020 12:39
--- NOTE | 2020-01-23 14:30 | Consultation ---
DATE OF CONSULTATION: 01/23/2020 PULMONARY CONSULTATION CONSULTING PHYSICIAN: Asael Alvares MD. HISTORY OF PRESENT ILLNESS: This is a 69-year-old female with a history of hypertensive heart disease, atrial fibrillation, came to the ER with tachycardia. The patient also short of breath. [place] She was found to have ANDREA and LFTs. X-ray chest, bilateral pleural effusions and right lung pneumonia. The patient was started on antibiotics and admitted to the hospital for subsequent management and care. PAST MEDICAL HISTORY: Notable for atrial fibrillation, hypertension. There is a past history of some sort of DVT many years ago. CURRENT MEDICATIONS: Reviewed and reconciled in chart. SOCIAL HISTORY: Denies alcohol or tobacco usage. PHYSICAL EXAMINATION: GENERAL: Reveals a 69-year-old female. VITAL SIGNS: Blood pressure 120/90, heart rate 94, respiratory rate , afebrile. HEENT: Unremarkable. CHEST: Shows decreased breath sounds bilaterally with normal heart sounds. ABDOMEN: Soft. EXTREMITIES: There is no edema. LABORATORY DATA: Lab testing shows normal CBC and BMP with the exception of creatinine 1.6 this morning. Urinalysis negative except for a few wbc's. IMAGING STUDIES: X-ray chest was obtained, which shows right lung pneumonia as well as small bilateral effusions. IMPRESSION: 1. Right lung pneumonia. 2. Bilateral pleural effusions. 3. Atrial fibrillation. 4. Hypertension. DISCUSSION: Agree with admission and care. The patient needs rate control as well as anticoagulation, broad-spectrum antibiotics. We will follow carefully. Consider echo, which at this point has not been ordered. Asael Alvares M.D. DR: ZOHRA JOB#: [id number] CC:
[2020-01-23 16:00] VITALS: BP 131/97
[2020-01-23 20:00] VITALS: BP 122/82
[2020-01-24] VITALS (7 sets, daily range): BP systolic 113–129; BP diastolic 74–96
[2020-01-24] MEDS: Amiodarone 200mg tab ORAL SCH ×3 (06:21→22:30)
[2020-01-24 07:56] LABS: BASOPHILS % (AUTO) 0.5 % (0.0-2.0); EOSINOPHILS % (AUTO) 0.1 % (0.0-3.0); HEMOGLOBIN 13.9 G/DL (12.0-16.0); LYMPHOCYTES % (AUTO) 15.3 % (20.0-45.0); MEAN CORPUSCULAR VOLUME 91 FL (80-99); MONOCYTES % (AUTO) 6.7 % (1.0-10.0); NEUTROPHILS % (AUTO) 77.4 % (45.0-75.0); PLATELET COUNT 117 K/UL (150-450); RED BLOOD COUNT 4.29 M/UL (4.20-5.40); RED CELL DISTRIBUTION WIDTH 14.2 % (11.6-14.8); WHITE BLOOD COUNT 8.8 K/UL (4.8-10.8)
[2020-01-24] MEDS: Docusate 100mg cap ORAL SCH ×2 (09:00→21:00)
[2020-01-24] MEDS: Eliquis 5mg tablet ORAL SCH ×2 (09:10→18:56)
[2020-01-24] MEDS: Aspirin Baby 81mg ORAL SCH (09:10)
[2020-01-24] MEDS: cefTRIAXone 1 GM in D5W 55 ML IVPB SCH (09:10)
[2020-01-24] MEDS: Azithromycin 250mg tab ORAL SCH (09:10)
[2020-01-24 09:11] LABS: ALANINE AMINOTRANSFERASE 579 U/L (12-78); ALBUMIN 2.8 G/DL (3.4-5.0); ALBUMIN/GLOBULIN RATIO 0.9 (1.0-2.7); ALKALINE PHOSPHATASE 176 U/L (46-116); ANION GAP 16 mmol/L (5-15); ASPARTATE AMINO TRANSFERASE 548 U/L (15-37); BILIRUBIN,TOTAL 0.7 MG/DL (0.2-1.0); BLOOD UREA NITROGEN 47 mg/dL (7-18); CALCIUM 7.6 MG/DL (8.5-10.1); CARBON DIOXIDE 15 MMOL/L (21-32); CHLORIDE 104 MMOL/L (98-107); CREATININE 1.6 MG/DL (0.55-1.30); PHOSPHORUS 4.2 MG/DL (2.5-4.9); POTASSIUM 4.3 MMOL/L (3.5-5.1); SODIUM 135 MMOL/L (136-145)
--- NOTE | 2020-01-24 10:26 | Pulmonology Progress Note ---
Subjective ROS Limited/Unobtainable: No Interval Events: None new Constitutional: Reports: no symptoms HEENT: Repors: no symptoms Respiratory: Reports: no symptoms Cardiovascular: Reports: no symptoms Gastrointestinal/Abdominal: Reports: no symptoms Allergies: Coded Allergies: No Known Allergies (Unverified , 01/22/20) Objective Last 24 Hour Vital Signs Date Time Temp Pulse Resp B/P (MAP) Pulse Ox O2 Delivery O2 Flow Rate FiO2 01/24/20 10:10 98.1 01/24/20 09:10 104 129/90 01/24/20 09:10 104 129/90 01/24/20 08:00 98.1 104 20 129/90 (103) 98 01/24/20 04:00 99 01/24/20 04:00 97.0 121 28 120/96 (104) 97 01/24/20 00:44 96.0 84 22 113/81 (92) 99 01/24/20 00:00 92 01/24/20 00:00 96.8 100 19 126/78 (94) 100 01/23/20 21:04 Nasal Cannula 2.0 01/23/20 20:00 101 01/23/20 20:00 96.5 110 20 122/82 (95) 100 01/23/20 16:00 113 01/23/20 16:00 98.1 113 20 131/97 (108) 99 01/23/20 12:00 96 01/23/20 12:00 97.7 89 20 135/90 (105) 100 Intake and Output 01/23/20 01/24/20 19:00 07:00 Intake Total 324 ml 1260 ml Balance 324 ml 1260 ml Intake Oral 324 ml IV Total 900 ml Other 360 ml # Voids 1 3 # Bowel Movements 1 1 General Appearance: no acute distress HEENT: normocephalic Respiratory: chest wall non-tender, decreased breath sounds Cardiovascular: normal peripheral pulses Abdomen: normal bowel sounds Extremities: no cyanosis Microbiology Date/Time Source Procedure Growth Status 01/22/20 14:48 Urine,Clean Catch Urine Culture - Preliminary Gram Negative Bacillus 1 Gram Negative Bacillus 2 Resulted Laboratory Tests 01/24/20 06:15: White Blood Count 8.8, Red Blood Count 4.29, Hemoglobin 13.9, Hematocrit 39.0, Mean Corpuscular Volume 91, Mean Corpuscular Hemoglobin 32.4H, Mean Corpuscular Hemoglobin Concent 35.6, Red Cell Distribution Width 14.2, Platelet Count 117L, Mean Platelet Volume 6.3L, Neutrophils (%) (Auto) 77.4H, Lymphocytes (%) (Auto) 15.3L, Monocytes (%) (Auto) 6.7, Eosinophils (%) (Auto) 0.1, Basophils (%) (Auto ) 0.5, Sodium Level 135L, Potassium Level 4.3, Chloride Level 104, Carbon Dioxide Level 15L, Anion Gap 16H, Blood Urea Nitrogen 47H, Creatinine 1.6H, Estimat Glomerular Filtration Rate 31.8, Glucose Level 102, Calcium Level 7.6L, Phosphorus Level 4.2, Magnesium Level 2.2, Total Bilirubin 0.7, Aspartate Amino Transf (AST/SGOT) 548H, Alanine Aminotransferase (ALT/SGPT) 579H, Alkaline Phosphatase 176H, Total Protein 5.9L, Albumin 2.8L, Globulin 3.1, Albumin/ Globulin Ratio 0.9L Current Medications Medications (Trade) Dose Ordered Sig/Thao Route PRN Reason Start Time Stop Time Status Last Admin Dose Admin Acetaminophen (Tylenol) 650 mg Q4H PRN ORAL Mild Pain (Pain Scale 1-3) 01/22/20 15:45 02/21/20 15:44 01/24/20 09:40 Al Hydroxide/Mg Hydroxide (Mylanta II) 30 ml Q6H PRN ORAL dyspepsia 01/22/20 15:45 02/21/20 15:44 Albuterol/ Ipratropium (Albuterol/ Ipratropium) 3 ml Q6H PRN HHN Shortness of Breath 01/22/20 15:45 01/27/20 15:44 Amiodarone HCl (Cordarone) 100 mg EVERY 8 HOURS ORAL 01/22/20 22:00 04/21/20 21:59 01/24/20 06:21 Amlodipine Besylate (Norvasc) 10 mg DAILY ORAL 01/23/20 09:00 02/22/20 08:59 01/24/20 09:10 Apixaban (Eliquis) 5 mg BID ORAL 01/22/20 12:45 04/21/20 12:44 01/24/20 09:10 Aspirin (ASA) 81 mg DAILY ORAL 01/23/20 09:00 03/08/20 08:59 01/24/20 09:10 Atenolol (Tenormin) 50 mg DAILY ORAL 01/23/20 09:00 02/22/20 08:59 01/24/20 09:10 Azithromycin (Zithromax) 500 mg DAILY ORAL 01/23/20 09:00 01/30/20 08:59 01/24/20 09:10 Ceftriaxone Sodium 1 gm/ Dextrose 55 ml @ 110 mls/hr DAILY IVPB 01/23/20 09:00 01/30/20 08:59 01/24/20 09:10 Dextrose (Dextrose 50%) 25 ml Q30M PRN IV Hypoglycemia 01/22/20 15:45 04/21/20 15:44 Dextrose (Dextrose 50%) 50 ml Q30M PRN IV Hypoglycemia 01/22/20 15:45 04/21/20 15:44 Diphenhydramine HCl (Benadryl) 25 mg Q6H PRN ORAL Itching/Pruritis 01/22/20 15:45 02/21/20 15:44 Docusate Sodium (Colace) 100 mg EVERY 12 HOURS ORAL 01/22/20 21:00 02/21/20 20:59 01/23/20 10:08 Lidocaine (Lidoderm 5% PATCH) 1 patch DAILY TDERMAL 01/24/20 10:30 04/23/20 10:29 Ondansetron HCl (Zofran) 4 mg Q4H PRN IVP Nausea & Vomiting 01/23/20 17:30 02/22/20 17:29 01/23/20 17:40 Sodium Chloride 1,000 ml @ 75 mls/hr [id number] IV 01/23/20 11:45 02/22/20 11:44 01/24/20 00:52 Assessment/Plan Assessment/Plan IMPRESSION: 1. Right lung pneumonia. 2. Bilateral pleural effusions. 3. Atrial fibrillation. 4. Hypertension. DISCUSSION: Continue rate control as well as anticoagulation, broad-spectrum antibiotics. I will follow carefully. Consider echo. Saturating 96% on 2L/min O2 Asael Alvares M.D. Asael Alvares MD January 24, 2020 10:26
--- NOTE | 2020-01-24 11:19 | Nephrology Progress Note ---
Assessment/Plan Plan #ANDREA - likely pre-renal azotemia in the setting of renal hypoperfusion due to RVR and sepsis #Sepsis - r/o COVID #Hypoxemic resp failure due to pneumonia - r/o COVID # Elevated LFTs #HTN #Afib #HLD - switch to LR at 50cc/hr- given low bicarb - GI consulted for elevated LFTs - trend LFTs - abd Us - monitor Cr and electrolytes - ID eval - pulm eval - antibiotics per ID - cardiology eval for afib RVR - monitor bmp , mag and phos daily - avoid nephrotoxins - strict I&Os - daily weights Subjective ROS Limited/Unobtainable: No Constitutional: Denies: no symptoms, chills, diaphoresis, fever, malaise, weakness, other HEENT: Denies: no symptoms, eye pain, blurred vision, tearing, double vision, ear pain, ear discharge, nose pain, nose congestion, throat pain, throat swelling, mouth pain, mouth swelling, other Genitourinary: Denies: no symptoms, burning, discharge, frequency, flank pain, hematuria, incontinence, pain, urgency, other Neurologic/Psychiatric: Denies: no symptoms, anxiety, depressed, emotional problems, headache, numbness, paresthesia, pre-existing deficit, seizure, tingling, tremors, weakness, other Subjective breathing stable cr 1.6 complains of nausea LFts uptredning GI consulted Objective Objective Last 24 Hour Vital Signs Date Time Temp Pulse Resp B/P (MAP) Pulse Ox O2 Delivery O2 Flow Rate FiO2 01/24/20 10:10 98.1 01/24/20 09:10 104 129/90 01/24/20 09:10 104 129/90 01/24/20 08:00 98.1 104 20 129/90 (103) 98 01/24/20 04:00 99 01/24/20 04:00 97.0 121 28 120/96 (104) 97 01/24/20 00:44 96.0 84 22 113/81 (92) 99 01/24/20 00:00 92 01/24/20 00:00 96.8 100 19 126/78 (94) 100 01/23/20 21:04 Nasal Cannula 2.0 01/23/20 20:00 101 01/23/20 20:00 96.5 110 20 122/82 (95) 100 01/23/20 16:00 113 01/23/20 16:00 98.1 113 20 131/97 (108) 99 01/23/20 12:00 96 01/23/20 12:00 97.7 89 20 135/90 (105) 100 Intake and Output 01/23/20 01/24/20 19:00 07:00 Intake Total 324 ml 1260 ml Balance 324 ml 1260 ml Intake Oral 324 ml IV Total 900 ml Other 360 ml # Voids 1 3 # Bowel Movements 1 1 Laboratory Tests 01/24/20 06:15: White Blood Count 8.8, Red Blood Count 4.29, Hemoglobin 13.9, Hematocrit 39.0, Mean Corpuscular Volume 91, Mean Corpuscular Hemoglobin 32.4H, Mean Corpuscular Hemoglobin Concent 35.6, Red Cell Distribution Width 14.2, Platelet Count 117L, Mean Platelet Volume 6.3L, Neutrophils (%) (Auto) 77.4H, Lymphocytes (%) (Auto) 15.3L, Monocytes (%) (Auto) 6.7, Eosinophils (%) (Auto) 0.1, Basophils (%) (Auto ) 0.5, Sodium Level 135L, Potassium Level 4.3, Chloride Level 104, Carbon Dioxide Level 15L, Anion Gap 16H, Blood Urea Nitrogen 47H, Creatinine 1.6H, Estimat Glomerular Filtration Rate 31.8, Glucose Level 102, Calcium Level 7.6L, Phosphorus Level 4.2, Magnesium Level 2.2, Total Bilirubin 0.7, Aspartate Amino Transf (AST/SGOT) 548H, Alanine Aminotransferase (ALT/SGPT) 579H, Alkaline Phosphatase 176H, Total Protein 5.9L, Albumin 2.8L, Globulin 3.1, Albumin/ Globulin Ratio 0.9L 01/24/20 11:00: Arterial Blood pH 7.313L, Arterial Blood Partial Pressure CO2 30.3L, Arterial Blood Partial Pressure O2 85.2, Arterial Blood HCO3 15.0*L, Arterial Blood Oxygen Saturation 94.8L, Arterial Blood Base Excess -9.8*L, Vishal Test Positive Height (Feet): 5 Height (Inches): 0.00 Weight (Pounds): 108 Deo Crespo M.D. January 24, 2020 11:19
--- NOTE | 2020-01-24 12:32 | Internal Med Progress Note ---
Subjective Date of Service: January 24, 2020 Physician Name Cindi Velázquez Attending Physician Deo Crespo M.D. Current Medications Medications (Trade) Dose Ordered Sig/Thao Route PRN Reason Start Time Stop Time Status Last Admin Dose Admin Acetaminophen (Tylenol) 650 mg Q4H PRN ORAL Mild Pain (Pain Scale 1-3) 01/22/20 15:45 02/21/20 15:44 01/24/20 09:40 Al Hydroxide/Mg Hydroxide (Mylanta II) 30 ml Q6H PRN ORAL dyspepsia 01/22/20 15:45 02/21/20 15:44 Albuterol/ Ipratropium (Albuterol/ Ipratropium) 3 ml Q6H PRN HHN Shortness of Breath 01/22/20 15:45 01/27/20 15:44 Amiodarone HCl (Cordarone) 100 mg EVERY 8 HOURS ORAL 01/22/20 22:00 04/21/20 21:59 01/24/20 06:21 Amlodipine Besylate (Norvasc) 10 mg DAILY ORAL 01/23/20 09:00 02/22/20 08:59 01/24/20 09:10 Apixaban (Eliquis) 5 mg BID ORAL 01/22/20 12:45 04/21/20 12:44 01/24/20 09:10 Aspirin (ASA) 81 mg DAILY ORAL 01/23/20 09:00 03/08/20 08:59 01/24/20 09:10 Atenolol (Tenormin) 50 mg DAILY ORAL 01/23/20 09:00 02/22/20 08:59 01/24/20 09:10 Azithromycin (Zithromax) 500 mg DAILY ORAL 01/23/20 09:00 01/30/20 08:59 01/24/20 09:10 Ceftriaxone Sodium 1 gm/ Dextrose 55 ml @ 110 mls/hr DAILY IVPB 01/23/20 09:00 01/30/20 08:59 01/24/20 09:10 Dextrose (Dextrose 50%) 25 ml Q30M PRN IV Hypoglycemia 01/22/20 15:45 04/21/20 15:44 Dextrose (Dextrose 50%) 50 ml Q30M PRN IV Hypoglycemia 01/22/20 15:45 04/21/20 15:44 Diphenhydramine HCl (Benadryl) 25 mg Q6H PRN ORAL Itching/Pruritis 01/22/20 15:45 02/21/20 15:44 Docusate Sodium (Colace) 100 mg EVERY 12 HOURS ORAL 01/22/20 21:00 02/21/20 20:59 01/23/20 10:08 Lactated Ringer's 1,000 ml @ 50 mls/hr Q20H IV 01/24/20 12:30 02/23/20 12:29 Lidocaine (Lidoderm 5% PATCH) 1 patch DAILY TDERMAL 01/24/20 10:30 04/23/20 10:29 01/24/20 10:31 Ondansetron HCl (Zofran) 4 mg Q4H PRN IVP Nausea & Vomiting 01/23/20 17:30 02/22/20 17:29 01/23/20 17:40 Allergies: Coded Allergies: No Known Allergies (Unverified , 01/22/20) Subjective Patient still with shortness of breath; waiting Chest X ray. Do have high suspicion for COVID given predictive markers are trending up. She is developing an AG so did get ABG which shows low bicarb; waiting on lactic acid however she is not severely hypoxic. HR this am was around 110 and below, endorsed to nursing ok as long as below 110 for now. Will await cardio consult as well, and request Echo. 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 grossly normal, oriented x 3 Laboratory Tests Test 01/24/20 06:15 01/24/20 11:00 White Blood Count 8.8 K/UL (4.8-10.8) Red Blood Count 4.29 M/UL (4.20-5.40) Hemoglobin 13.9 G/DL (12.0-16.0) Hematocrit 39.0 % (37.0-47.0) Mean Corpuscular Volume 91 FL (80-99) Mean Corpuscular Hemoglobin 32.4 PG (27.0-31.0) H Mean Corpuscular Hemoglobin Concent 35.6 G/DL (32.0-36.0) Red Cell Distribution Width 14.2 % (11.6-14.8) Platelet Count 117 K/UL (150-450) L Mean Platelet Volume 6.3 FL (6.5-10.1) L Neutrophils (%) (Auto) 77.4 % (45.0-75.0) H Lymphocytes (%) (Auto) 15.3 % (20.0-45.0) L Monocytes (%) (Auto) 6.7 % (1.0-10.0) Eosinophils (%) (Auto) 0.1 % (0.0-3.0) Basophils (%) (Auto) 0.5 % (0.0-2.0) Sodium Level 135 MMOL/L (136-145) L Potassium Level 4.3 MMOL/L (3.5-5.1) Chloride Level 104 MMOL/L (98-107) Carbon Dioxide Level 15 MMOL/L (21-32) L Anion Gap 16 mmol/L (5-15) H Blood Urea Nitrogen 47 mg/dL (7-18) H Creatinine 1.6 MG/DL (0.55-1.30) H Estimat Glomerular Filtration Rate 31.8 mL/min (>60) Glucose Level 102 MG/DL (74-106) Calcium Level 7.6 MG/DL (8.5-10.1) L Phosphorus Level 4.2 MG/DL (2.5-4.9) Magnesium Level 2.2 MG/DL (1.8-2.4) Total Bilirubin 0.7 MG/DL (0.2-1.0) Aspartate Amino Transf (AST/SGOT) 548 U/L (15-37) H Alanine Aminotransferase (ALT/SGPT) 579 U/L (12-78) H Alkaline Phosphatase 176 U/L (46-116) H Total Protein 5.9 G/DL (6.4-8.2) L Albumin 2.8 G/DL (3.4-5.0) L Globulin 3.1 g/dL Albumin/Globulin Ratio 0.9 (1.0-2.7) L Arterial Blood pH 7.313 (7.350-7.450) Arterial Blood Partial Pressure CO2 30.3 mmHg (35.0-45.0) L Arterial Blood Partial Pressure O2 85.2 mmHg (75.0-100.0) Arterial Blood HCO3 15.0 mmol/L (22.0-26.0) *L Arterial Blood Oxygen Saturation 94.8 % (95-100) L Arterial Blood Base Excess -9.8 (-2-2) *L Vishal Test Positive Microbiology Date/Time Source Procedure Growth Status 01/22/20 14:48 Urine,Clean Catch Urine Culture - Preliminary Gram Negative Bacillus 1 Gram Negative Bacillus 2 Resulted Intake and Output 01/23/20 01/24/20 19:00 07:00 Intake Total 324 ml 1260 ml Balance 324 ml 1260 ml Intake Oral 324 ml IV Total 900 ml Other 360 ml # Voids 1 3 # Bowel Movements 1 1 Assessment/Plan Assessment/Plan Assessment #Afib RVR, on home atenolol and amiodarone #COVID vs CAP ; CXR w/ BL effusion and RLL infiltrate, CT chest confirms #Metabolic Acidosis #ANDREA vs CKD #Transaminitis--> related to COVID as high suspicion vs will need abdominal US Plan Consultants include nephro, ID, pulm, Cardo Continue home cardiac medications as stated above, along w/ norvasc Azithromycin and Rocephin IV, Engle Cx, trend predictive markers Trend liver enzymes, pending COVID predictive markers ( LDH, Ferritin, Ddimer, CRP); if liver enzymes continue to climb consider Abd US NS @ 75 cc/hr Cardiac Diet 01/23: Will obtain abdominal US given liver enzymes although suspect from COVID; obtain lactic acid given metabolic acidosis, and also echo. Cindi Velázquez D.O. January 24, 2020 12:32
[2020-01-24 13:33] LABS: CREATINE KINASE 127 U/L (26-308); LACTATE DEHYDROGENASE 403 U/L (81-234)
--- NOTE | 2020-01-24 14:00 | Consultation ---
History of Present Illness General Date patient seen: January 24, 2020 Time patient seen: 19:52 Chief Complaint: Hypertension Present Illness HPI Cardiology consulted for AFIB. 69 year old woman with HTN, atrial fibrillation who presented to the ED for rapid heart rate, generalized weakness, high blood pressure and some difficulty breathing. She denies fever or chills, cough or congestion, nausea or vomiting. She has no other complaints. Patient returned to the from [facility] 2 months ago. History obtained from medical record due to language barrier. In ED she was found to have a low grade rapid atrial fibrillation with ANDREA and elevated LFTs on labs. CT chest showed bilateral pleural effusions and rigth base infiltrate. Patient started on broad spectrum antibiotics and referred for admission. COVID19 PCR sent. Allergies: Coded Allergies: No Known Allergies (Unverified , 01/22/20) Medication History Scheduled Amiodarone Hcl* (Pacerone*), 100 MG ORAL EVERY 8 HOURS, (Reported) Amlodipine Besylate* (Amlodipine Besylate*), 10 MG ORAL DAILY, (Reported) Aspirin* (Aspirin*), 81 MG ORAL DAILY, (Reported) Atenolol* (Tenormin*), 50 MG ORAL DAILY, (Reported) Clopidogrel* (Clopidogrel*), 75 MG ORAL DAILY, (Reported) Patient History Healthcare decision maker Resuscitation status Advanced Directive on File Review of Systems Constitutional: Reports: fever, malaise, weakness Eye: Reports: no symptoms ENT: Reports: no symptoms Respiratory: Reports: shortness of breath Cardiovascular: Reports: palpitations Gastrointestinal: Reports: no symptoms Genitourinary: Reports: no symptoms Musculoskeletal: Reports: no symptoms Skin: Reports: no symptoms Psychiatric: Reports: no symptoms Neurological: Reports: no symptoms Endocrine: Reports: no symptoms Hematologic/Lymphatic: Reports: no symptoms Physical Exam General Appearance: no apparent distress, alert Lines, tubes and drains: peripheral HEENT: normocephalic, atraumatic, anicteric, mucous membranes moist, PERRL Neck: non-tender, normal alignment, supple, normal inspection Respiratory/Chest: chest wall non-tender, lungs clear, normal breath sounds Cardiovascular/Chest: regularly irregular, tachycardia, arrhythmia Abdomen: normal bowel sounds, non tender, soft, no organomegaly, no mass Extremities: normal range of motion, non-tender, normal inspection, no calf tenderness, normal capillary refill, non-pitting Skin Exam: normal pigmentation, warm/dry, cyanotic 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 normal, no motor/sensory deficits Last 24 Hour Vital Signs Date Time Temp Pulse Resp B/P (MAP) Pulse Ox O2 Delivery O2 Flow Rate FiO2 01/24/20 12:00 84 01/24/20 10:10 98.1 01/24/20 09:10 104 129/90 01/24/20 09:10 104 129/90 01/24/20 08:00 93 01/24/20 08:00 98.1 104 20 129/90 (103) 98 01/24/20 04:00 99 01/24/20 04:00 97.0 121 28 120/96 (104) 97 01/24/20 00:44 96.0 84 22 113/81 (92) 99 01/24/20 00:00 92 01/24/20 00:00 96.8 100 19 126/78 (94) 100 01/23/20 21:04 Nasal Cannula 2.0 01/23/20 20:00 101 01/23/20 20:00 96.5 110 20 122/82 (95) 100 01/23/20 16:00 113 01/23/20 16:00 98.1 113 20 131/97 (108) 99 Intake and Output 01/23/20 01/24/20 19:00 07:00 Intake Total 324 ml 1260 ml Balance 324 ml 1260 ml Intake Oral 324 ml IV Total 900 ml Other 360 ml # Voids 1 3 # Bowel Movements 1 1 Laboratory Tests Test 01/24/20 06:15 01/24/20 11:00 01/24/20 12:45 White Blood Count 8.8 K/UL (4.8-10.8) Red Blood Count 4.29 M/UL (4.20-5.40) Hemoglobin 13.9 G/DL (12.0-16.0) Hematocrit 39.0 % (37.0-47.0) Mean Corpuscular Volume 91 FL (80-99) Mean Corpuscular Hemoglobin 32.4 PG (27.0-31.0) H Mean Corpuscular Hemoglobin Concent 35.6 G/DL (32.0-36.0) Red Cell Distribution Width 14.2 % (11.6-14.8) Platelet Count 117 K/UL (150-450) L Mean Platelet Volume 6.3 FL (6.5-10.1) L Neutrophils (%) (Auto) 77.4 % (45.0-75.0) H Lymphocytes (%) (Auto) 15.3 % (20.0-45.0) L Monocytes (%) (Auto) 6.7 % (1.0-10.0) Eosinophils (%) (Auto) 0.1 % (0.0-3.0) Basophils (%) (Auto) 0.5 % (0.0-2.0) Sodium Level 135 MMOL/L (136-145) L Potassium Level 4.3 MMOL/L (3.5-5.1) Chloride Level 104 MMOL/L (98-107) Carbon Dioxide Level 15 MMOL/L (21-32) L Anion Gap 16 mmol/L (5-15) H Blood Urea Nitrogen 47 mg/dL (7-18) H Creatinine 1.6 MG/DL (0.55-1.30) H Estimat Glomerular Filtration Rate 31.8 mL/min (>60) Glucose Level 102 MG/DL (74-106) Calcium Level 7.6 MG/DL (8.5-10.1) L Phosphorus Level 4.2 MG/DL (2.5-4.9) Magnesium Level 2.2 MG/DL (1.8-2.4) Total Bilirubin 0.7 MG/DL (0.2-1.0) Aspartate Amino Transf (AST/SGOT) 548 U/L (15-37) H Alanine Aminotransferase (ALT/SGPT) 579 U/L (12-78) H Alkaline Phosphatase 176 U/L (46-116) H Total Protein 5.9 G/DL (6.4-8.2) L Albumin 2.8 G/DL (3.4-5.0) L Globulin 3.1 g/dL Albumin/Globulin Ratio 0.9 (1.0-2.7) L Arterial Blood pH 7.313 (7.350-7.450) Arterial Blood Partial Pressure CO2 30.3 mmHg (35.0-45.0) L Arterial Blood Partial Pressure O2 85.2 mmHg (75.0-100.0) Arterial Blood HCO3 15.0 mmol/L (22.0-26.0) *L Arterial Blood Oxygen Saturation 94.8 % (95-100) L Arterial Blood Base Excess -9.8 (-2-2) *L Vishal Test Positive D-Dimer 3.83 mg/L FEU (0.00-0.49) H Lactic Acid Level 1.80 mmol/L (0.4-2.0) Ferritin Pending Lactate Dehydrogenase Pending Total Creatine Kinase Pending C-Reactive Protein, Quantitative Pending Height (Feet): 5 Height (Inches): 0.00 Weight (Pounds): 108 Medications Current Medications Medications (Trade) Dose Ordered Sig/Thao Route PRN Reason Start Time Stop Time Status Last Admin Dose Admin Acetaminophen (Tylenol) 650 mg Q4H PRN ORAL Mild Pain (Pain Scale 1-3) 01/22/20 15:45 02/21/20 15:44 01/24/20 09:40 Al Hydroxide/Mg Hydroxide (Mylanta II) 30 ml Q6H PRN ORAL dyspepsia 01/22/20 15:45 02/21/20 15:44 Albuterol/ Ipratropium (Albuterol/ Ipratropium) 3 ml Q6H PRN HHN Shortness of Breath 01/22/20 15:45 01/27/20 15:44 Amiodarone HCl (Cordarone) 100 mg EVERY 8 HOURS ORAL 01/22/20 22:00 04/21/20 21:59 01/24/20 06:21 Amlodipine Besylate (Norvasc) 10 mg DAILY ORAL 01/23/20 09:00 02/22/20 08:59 01/24/20 09:10 Apixaban (Eliquis) 5 mg BID ORAL 01/22/20 12:45 04/21/20 12:44 01/24/20 09:10 Aspirin (ASA) 81 mg DAILY ORAL 01/23/20 09:00 03/08/20 08:59 01/24/20 09:10 Atenolol (Tenormin) 50 mg DAILY ORAL 01/23/20 09:00 02/22/20 08:59 01/24/20 09:10 Azithromycin (Zithromax) 500 mg DAILY ORAL 01/23/20 09:00 01/30/20 08:59 01/24/20 09:10 Ceftriaxone Sodium 1 gm/ Dextrose 55 ml @ 110 mls/hr DAILY IVPB 01/23/20 09:00 01/30/20 08:59 01/24/20 09:10 Dextrose (Dextrose 50%) 25 ml Q30M PRN IV Hypoglycemia 01/22/20 15:45 04/21/20 15:44 Dextrose (Dextrose 50%) 50 ml Q30M PRN IV Hypoglycemia 01/22/20 15:45 04/21/20 15:44 Diphenhydramine HCl (Benadryl) 25 mg Q6H PRN ORAL Itching/Pruritis 01/22/20 15:45 02/21/20 15:44 Docusate Sodium (Colace) 100 mg EVERY 12 HOURS ORAL 01/22/20 21:00 02/21/20 20:59 01/23/20 10:08 Lactated Ringer's 1,000 ml @ 50 mls/hr Q20H IV 01/24/20 12:30 02/23/20 12:29 Lidocaine (Lidoderm 5% PATCH) 1 patch DAILY TDERMAL 01/24/20 10:30 04/23/20 10:29 01/24/20 10:31 Ondansetron HCl (Zofran) 4 mg Q4H PRN IVP Nausea & Vomiting 01/23/20 17:30 02/22/20 17:29 01/23/20 17:40 Assessment/Plan Status: stable Assessment/Plan: ASSESSMENT: Atrial fibrillation Hypertension Pleural effusion ANDREA UTI HLD Respiratory failure Elevated livery function tests Elevated CRP PLAN: -d/c atenolol -Start metoprolol 100 mg BID -Anticoagulation with Eliquis -D/c Amiodarone re elevated LFT -Continue norvasc for HTN -Echocardiogram PENDING -Outpatient stress test -No indication for cardioversion, patient hemodynamically stable -Outpatient EP consult for AFIB Ablation Butch Brunson MD January 24, 2020 14:00
[2020-01-24 14:04] LABS: FERRITIN 1846 NG/ML (8-388)
[2020-01-24] MEDS: LR 1000ml 1,000 ML IV SCH (14:45)
--- NOTE | 2020-01-24 15:15 | Infectious Diseases Prog Note ---
Assessment/Plan Assessment/Plan ASSESSMENT/PLAN: 1. gram neg uti, CAP, rule out covid-19 infection/pna - ceftriaxone and azithromycin - day # 3 - f/u on cultures, labs and chest x-ray - f/u on covid-19 pcr testing 2. Elevated creatinine, acute kidney injury. 3. Hypertension. 4. Blood pressure treatment per primary care team. 5. Atrial fibrillation with rapid ventricular response. 6. Effusions. 7. Elevated transaminases. 8. Continue treatment per primary consultants. 9. Orders were noted and entered. 10. No known drug allergies. 11. Social history negative. 12. Family history noncontributory. 13. MAR is noted. 14. Case discussed with primary team. Subjective Constitutional: Reports: fatigue; Denies: fever HEENT: Denies: congestion Respiratory: Denies: shortness of breath Cardiovascular: Denies: chest pain Gastrointestinal/Abdominal: Denies: nausea, vomiting, diarrhea Genitourinary: Reports: other - no park Neurologic: Reports: other - alert, responsive Psychiatric: Reports: other - NA Skin: Denies: rash Hematologic: Denies: bleeding Musculoskeletal: Denies: pain Allergies: Coded Allergies: No Known Allergies (Unverified , 01/22/20) Objective Vital Signs Last 24 Hour Vital Signs Date Time Temp Pulse Resp B/P (MAP) Pulse Ox O2 Delivery O2 Flow Rate FiO2 01/24/20 12:00 84 01/24/20 12:00 98.1 104 20 113/74 (87) 98 01/24/20 10:10 98.1 01/24/20 09:10 104 129/90 01/24/20 09:10 104 129/90 01/24/20 08:00 93 01/24/20 08:00 98.1 104 20 129/90 (103) 98 01/24/20 04:00 99 01/24/20 04:00 97.0 121 28 120/96 (104) 97 01/24/20 00:44 96.0 84 22 113/81 (92) 99 01/24/20 00:00 92 01/24/20 00:00 96.8 100 19 126/78 (94) 100 01/23/20 21:04 Nasal Cannula 2.0 01/23/20 20:00 101 01/23/20 20:00 96.5 110 20 122/82 (95) 100 5/23/20 16:00 113 01/23/20 16:00 98.1 113 20 131/97 (108) 99 Height (Feet): 5 Height (Inches): 0.00 Weight (Pounds): 108 General Appearance: no acute distress HEENT: normocephalic, atraumatic, anicteric Respiratory/Chest: no accessory muscle use, crackles/rales, rhonchi - bilaterally Cardiovascular: normal rate, regular rhythm, no gallop/murmur, no JVD Abdomen: normal bowel sounds, soft, non tender, no organomegaly, non distended Genitourinary: other - no park Extremities: no cyanosis Skin: no rash Neurologic/Psychiatric: legal word processor II-XII grossly normal, alert, responsive Lymphatic: no neck adenopathy Musculoskeletal: no effusion Objective Chest x-ray - 01/22/20 - Procedure: XRAY Chest 1v Procedure: XRAY Chest 1v Reason for study: Shortness of breath. Comparison films: None. FINDINGS: A single one view chest is obtained. There is mild to moderate vascular prominence. Right basilar infiltrate with small right effusion noted. There is cardiomegaly . The bony thorax appear unremarkable. IMPRESSION: Right basilar infiltrate and small effusion. Microbiology Date/Time Source Procedure Growth Status 01/22/20 14:48 Urine,Clean Catch Urine Culture - Preliminary Gram Negative Bacillus 1 Gram Negative Bacillus 2 Resulted Laboratory Tests Test 01/24/20 06:15 01/24/20 11:00 01/24/20 12:45 White Blood Count 8.8 K/UL (4.8-10.8) Red Blood Count 4.29 M/UL (4.20-5.40) Hemoglobin 13.9 G/DL (12.0-16.0) Hematocrit 39.0 % (37.0-47.0) Mean Corpuscular Volume 91 FL (80-99) Mean Corpuscular Hemoglobin 32.4 PG (27.0-31.0) H Mean Corpuscular Hemoglobin Concent 35.6 G/DL (32.0-36.0) Red Cell Distribution Width 14.2 % (11.6-14.8) Platelet Count 117 K/UL (150-450) L Mean Platelet Volume 6.3 FL (6.5-10.1) L Neutrophils (%) (Auto) 77.4 % (45.0-75.0) H Lymphocytes (%) (Auto) 15.3 % (20.0-45.0) L Monocytes (%) (Auto) 6.7 % (1.0-10.0) Eosinophils (%) (Auto) 0.1 % (0.0-3.0) Basophils (%) (Auto) 0.5 % (0.0-2.0) Sodium Level 135 MMOL/L (136-145) L Potassium Level 4.3 MMOL/L (3.5-5.1) Chloride Level 104 MMOL/L (98-107) Carbon Dioxide Level 15 MMOL/L (21-32) L Anion Gap 16 mmol/L (5-15) H Blood Urea Nitrogen 47 mg/dL (7-18) H Creatinine 1.6 MG/DL (0.55-1.30) H Estimat Glomerular Filtration Rate 31.8 mL/min (>60) Glucose Level 102 MG/DL (74-106) Calcium Level 7.6 MG/DL (8.5-10.1) L Phosphorus Level 4.2 MG/DL (2.5-4.9) Magnesium Level 2.2 MG/DL (1.8-2.4) Total Bilirubin 0.7 MG/DL (0.2-1.0) Aspartate Amino Transf (AST/SGOT) 548 U/L (15-37) H Alanine Aminotransferase (ALT/SGPT) 579 U/L (12-78) H Alkaline Phosphatase 176 U/L (46-116) H Total Protein 5.9 G/DL (6.4-8.2) L Albumin 2.8 G/DL (3.4-5.0) L Globulin 3.1 g/dL Albumin/Globulin Ratio 0.9 (1.0-2.7) L Arterial Blood pH 7.313 (7.350-7.450) Arterial Blood Partial Pressure CO2 30.3 mmHg (35.0-45.0) L Arterial Blood Partial Pressure O2 85.2 mmHg (75.0-100.0) Arterial Blood HCO3 15.0 mmol/L (22.0-26.0) *L Arterial Blood Oxygen Saturation 94.8 % (95-100) L Arterial Blood Base Excess -9.8 (-2-2) *L Vishal Test Positive D-Dimer 3.83 mg/L FEU (0.00-0.49) H Lactic Acid Level 1.80 mmol/L (0.4-2.0) Ferritin 1846 NG/ML (8-388) H Lactate Dehydrogenase 403 U/L (81-234) H Total Creatine Kinase 127 U/L (26-308) C-Reactive Protein, Quantitative 2.0 mg/dL (0.00-0.90) H Current Medications Medications (Trade) Dose Ordered Sig/Thao Route PRN Reason Start Time Stop Time Status Last Admin Dose Admin Acetaminophen (Tylenol) 650 mg Q4H PRN ORAL Mild Pain (Pain Scale 1-3) 01/22/20 15:45 02/21/20 15:44 01/24/20 09:40 Al Hydroxide/Mg Hydroxide (Mylanta II) 30 ml Q6H PRN ORAL dyspepsia 01/22/20 15:45 02/21/20 15:44 Albuterol/ Ipratropium (Albuterol/ Ipratropium) 3 ml Q6H PRN HHN Shortness of Breath 01/22/20 15:45 01/27/20 15:44 Amiodarone HCl (Cordarone) 100 mg EVERY 8 HOURS ORAL 01/22/20 22:00 04/21/20 21:59 01/24/20 14:45 Amlodipine Besylate (Norvasc) 10 mg DAILY ORAL 01/23/20 09:00 02/22/20 08:59 01/24/20 09:10 Apixaban (Eliquis) 5 mg BID ORAL 01/22/20 12:45 04/21/20 12:44 01/24/20 09:10 Aspirin (ASA) 81 mg DAILY ORAL 01/23/20 09:00 03/08/20 08:59 01/24/20 09:10 Azithromycin (Zithromax) 500 mg DAILY ORAL 01/23/20 09:00 01/30/20 08:59 01/24/20 09:10 Ceftriaxone Sodium 1 gm/ Dextrose 55 ml @ 110 mls/hr DAILY IVPB 01/23/20 09:00 01/30/20 08:59 01/24/20 09:10 Dextrose (Dextrose 50%) 25 ml Q30M PRN IV Hypoglycemia 01/22/20 15:45 04/21/20 15:44 Dextrose (Dextrose 50%) 50 ml Q30M PRN IV Hypoglycemia 01/22/20 15:45 04/21/20 15:44 Diphenhydramine HCl (Benadryl) 25 mg Q6H PRN ORAL Itching/Pruritis 01/22/20 15:45 02/21/20 15:44 Docusate Sodium (Colace) 100 mg EVERY 12 HOURS ORAL 01/22/20 21:00 02/21/20 20:59 01/23/20 10:08 Lactated Ringer's 1,000 ml @ 50 mls/hr Q20H IV 01/24/20 12:30 02/23/20 12:29 01/24/20 14:45 Lidocaine (Lidoderm 5% PATCH) 1 patch DAILY TDERMAL 01/24/20 10:30 04/23/20 10:29 01/24/20 10:31 Metoprolol Tartrate (Lopressor) 100 mg EVERY 12 HOURS ORAL 01/24/20 21:00 04/23/20 20:59 Ondansetron HCl (Zofran) 4 mg Q4H PRN IVP Nausea & Vomiting 01/23/20 17:30 02/22/20 17:29 01/23/20 17:40 Rakan Yanez MD January 24, 2020 15:15
[2020-01-24] MEDS: Metoprolol Tartrate 100mg tab ORAL SCH (22:31)
[2020-01-25] VITALS: BP 127/84
[2020-01-25 04:00] VITALS: BP 120/85
[2020-01-25 04:25] LABS: BASOPHILS % (AUTO) 0.7 % (0.0-2.0); EOSINOPHILS % (AUTO) 0.3 % (0.0-3.0); HEMATOCRIT 38.4 % (37.0-47.0); HEMOGLOBIN 13.4 G/DL (12.0-16.0); LYMPHOCYTES % (AUTO) 17.1 % (20.0-45.0); MEAN CORPUSCULAR VOLUME 91 FL (80-99); MONOCYTES % (AUTO) 6.3 % (1.0-10.0); NEUTROPHILS % (AUTO) 75.7 % (45.0-75.0); PLATELET COUNT 152 K/UL (150-450); RED BLOOD COUNT 4.23 M/UL (4.20-5.40); RED CELL DISTRIBUTION WIDTH 15.5 % (11.6-14.8); WHITE BLOOD COUNT 9.1 K/UL (4.8-10.8)
[2020-01-25 04:53] LABS: ALANINE AMINOTRANSFERASE 745 U/L (12-78); ALBUMIN 2.9 G/DL (3.4-5.0); ALKALINE PHOSPHATASE 182 U/L (46-116); ANION GAP 13 mmol/L (5-15); ASPARTATE AMINO TRANSFERASE 628 U/L (15-37); BILIRUBIN,TOTAL 0.6 MG/DL (0.2-1.0); BLOOD UREA NITROGEN 35 mg/dL (7-18); CALCIUM 7.5 MG/DL (8.5-10.1); CARBON DIOXIDE 20 MMOL/L (21-32); CHLORIDE 104 MMOL/L (98-107); CREATININE 1.4 MG/DL (0.55-1.30); PHOSPHORUS 3.1 MG/DL (2.5-4.9); POTASSIUM 4.1 MMOL/L (3.5-5.1); SODIUM 136 MMOL/L (136-145)
[2020-01-25 08:00] VITALS: BP 136/87
--- NOTE | 2020-01-25 08:06 | General Progress Note ---
Assessment/Plan Problem List: (1) Transaminitis ICD Codes: R74.0 - Nonspecific elevation of levels of transaminase and lactic acid dehydrogenase [LDH] SNOMED: 374308527, 154805073 (2) Pneumonia ICD Codes: J18.9 - Pneumonia, unspecified organism SNOMED: 150397791 (3) Atrial fibrillation with RVR ICD Codes: I48.91 - Unspecified atrial fibrillation SNOMED: 739340778507972 Status: stable Assessment/Plan: rising LFTS, ? abx related fu abd us hepatitis panel repeat labs in am will fu Subjective Allergies: Coded Allergies: No Known Allergies (Unverified , 01/22/20) Objective Last 24 Hour Vital Signs Date Time Temp Pulse Resp B/P (MAP) Pulse Ox O2 Delivery O2 Flow Rate FiO2 01/25/20 04:07 96.6 01/25/20 04:00 97.8 119 21 120/85 (97) 96 01/25/20 04:00 94 01/25/20 00:00 96.6 90 16 127/84 (98) 95 01/25/20 00:00 105 01/24/20 22:31 96 124/95 01/24/20 21:00 Nasal Cannula 2.0 01/24/20 20:00 89 01/24/20 20:00 96.5 96 18 124/95 (105) 95 01/24/20 16:00 96 01/24/20 16:00 98.0 96 20 128/87 (101) 98 01/24/20 12:00 84 01/24/20 12:00 98.1 104 20 113/74 (87) 98 01/24/20 09:10 104 129/90 01/24/20 09:10 104 129/90 01/24/20 09:00 Nasal Cannula 2.0 Intake and Output 01/24/20 01/25/20 19:00 07:00 Intake Total 1339 ml 550 ml Balance 1339 ml 550 ml Intake Oral 550 ml IV Total 789 ml 550 ml # Voids 3 5 # Bowel Movements 1 1 Laboratory Tests 01/24/20 11:00: Arterial Blood pH 7.313L, Arterial Blood Partial Pressure CO2 30.3L, Arterial Blood Partial Pressure O2 85.2, Arterial Blood HCO3 15.0*L, Arterial Blood Oxygen Saturation 94.8L, Arterial Blood Base Excess -9.8*L, Vishal Test Positive 01/24/20 12:45: D-Dimer 3.83H, Lactic Acid Level 1.80, Ferritin 1846H, Lactate Dehydrogenase 403H, Total Creatine Kinase 127, C-Reactive Protein, Quantitative 2.0H 01/25/20 04:00: White Blood Count 9.1, Red Blood Count 4.23, Hemoglobin 13.4, Hematocrit 38.4, Mean Corpuscular Volume 91, Mean Corpuscular Hemoglobin 31.8H, Mean Corpuscular Hemoglobin Concent 35.0, Red Cell Distribution Width 15.5H, Platelet Count 152, Mean Platelet Volume 6.3L, Neutrophils (%) (Auto) 75.7H, Lymphocytes (%) (Auto) 17.1L, Monocytes (%) (Auto) 6.3, Eosinophils (%) (Auto) 0.3, Basophils (%) (Auto ) 0.7, Sodium Level 136, Potassium Level 4.1, Chloride Level 104, Carbon Dioxide Level 20L, Anion Gap 13, Blood Urea Nitrogen 35H, Creatinine 1.4H, Estimat Glomerular Filtration Rate 37.2, Glucose Level 101, Calcium Level 7.5L, Phosphorus Level 3.1, Magnesium Level 2.1, Total Bilirubin 0.6, Aspartate Amino Transf (AST/SGOT) 628H, Alanine Aminotransferase (ALT/SGPT) 745H, Alkaline Phosphatase 182H, Total Protein 5.9L, Albumin 2.9L, Globulin 3.0, Albumin/ Globulin Ratio 1.0 Height (Feet): 5 Height (Inches): 0.00 Weight (Pounds): 108 General Appearance: no apparent distress EENT: normal ENT inspection Neck: supple Cardiovascular: normal rate Respiratory/Chest: decreased breath sounds Abdomen: normal bowel sounds, non tender, soft Extremities: non-tender Ish Benoit MD January 25, 2020 08:06
[2020-01-25] MEDS: Docusate 100mg cap ORAL SCH ×2 (09:00→21:03)
[2020-01-25] MEDS: Azithromycin 250mg tab ORAL SCH (09:09)
[2020-01-25] MEDS: Metoprolol Tartrate 100mg tab ORAL SCH ×2 (09:09→21:09)
[2020-01-25] MEDS: Eliquis 2.5mg tablet ORAL SCH ×2 (09:10→21:09)
[2020-01-25] MEDS: LR 1000ml 1,000 ML IV SCH (09:11)
[2020-01-25] MEDS: cefTRIAXone 1 GM in D5W 55 ML IVPB SCH (09:11)
--- NOTE | 2020-01-25 09:43 | Nephrology Progress Note ---
Assessment/Plan Plan #ANDREA - likely pre-renal azotemia in the setting of renal hypoperfusion due to RVR and sepsis #Sepsis - r/o COVID #Hypoxemic resp failure due to pneumonia - r/o COVID # Elevated LFTs #HTN #Afib #HLD - DC IVF - GI consulted for elevated LFTs - trend LFTs - abd Us - monitor Cr and electrolytes - ID eval - pulm eval - antibiotics per ID - cardiology eval for afib RVR - continue apixaban 5mg BID - monitor bmp , mag and phos daily - avoid nephrotoxins - strict I&Os - daily weights Subjective ROS Limited/Unobtainable: No Subjective breathing stable cr 1.4 EF 25% complains of nausea LFts uptredning GI consulted Objective Objective Last 24 Hour Vital Signs Date Time Temp Pulse Resp B/P (MAP) Pulse Ox O2 Delivery O2 Flow Rate FiO2 01/25/20 09:10 81 136/87 01/25/20 09:09 81 136/87 01/25/20 08:00 95.7 81 19 136/87 (103) 97 01/25/20 04:07 96.6 01/25/20 04:00 97.8 119 21 120/85 (97) 96 01/25/20 04:00 94 01/25/20 00:00 96.6 90 16 127/84 (98) 95 01/25/20 00:00 105 01/24/20 22:31 96 124/95 01/24/20 21:00 Nasal Cannula 2.0 01/24/20 20:00 89 01/24/20 20:00 96.5 96 18 124/95 (105) 95 01/24/20 16:00 96 01/24/20 16:00 98.0 96 20 128/87 (101) 98 01/24/20 12:00 84 01/24/20 12:00 98.1 104 20 113/74 (87) 98 Intake and Output 01/24/20 01/25/20 19:00 07:00 Intake Total 1339 ml 550 ml Balance 1339 ml 550 ml Intake Oral 550 ml IV Total 789 ml 550 ml # Voids 3 5 # Bowel Movements 1 1 Laboratory Tests 01/24/20 11:00: Arterial Blood pH 7.313L, Arterial Blood Partial Pressure CO2 30.3L, Arterial Blood Partial Pressure O2 85.2, Arterial Blood HCO3 15.0*L, Arterial Blood Oxygen Saturation 94.8L, Arterial Blood Base Excess -9.8*L, Vishal Test Positive 01/24/20 12:45: D-Dimer 3.83H, Lactic Acid Level 1.80, Ferritin 1846H, Lactate Dehydrogenase 403H, Total Creatine Kinase 127, C-Reactive Protein, Quantitative 2.0H 01/25/20 04:00: White Blood Count 9.1, Red Blood Count 4.23, Hemoglobin 13.4, Hematocrit 38.4, Mean Corpuscular Volume 91, Mean Corpuscular Hemoglobin 31.8H, Mean Corpuscular Hemoglobin Concent 35.0, Red Cell Distribution Width 15.5H, Platelet Count 152, Mean Platelet Volume 6.3L, Neutrophils (%) (Auto) 75.7H, Lymphocytes (%) (Auto) 17.1L, Monocytes (%) (Auto) 6.3, Eosinophils (%) (Auto) 0.3, Basophils (%) (Auto ) 0.7, Sodium Level 136, Potassium Level 4.1, Chloride Level 104, Carbon Dioxide Level 20L, Anion Gap 13, Blood Urea Nitrogen 35H, Creatinine 1.4H, Estimat Glomerular Filtration Rate 37.2, Glucose Level 101, Calcium Level 7.5L, Phosphorus Level 3.1, Magnesium Level 2.1, Total Bilirubin 0.6, Aspartate Amino Transf (AST/SGOT) 628H, Alanine Aminotransferase (ALT/SGPT) 745H, Alkaline Phosphatase 182H, Total Protein 5.9L, Albumin 2.9L, Globulin 3.0, Albumin/ Globulin Ratio 1.0 Height (Feet): 5 Height (Inches): 0.00 Weight (Pounds): 108 Deo Crespo M.D. January 25, 2020 09:43
--- NOTE | 2020-01-25 10:21 | Pulmonology Progress Note ---
Subjective ROS Limited/Unobtainable: No Interval Events: None new Constitutional: Reports: fatigue; Denies: fever HEENT: Repors: no symptoms Respiratory: Reports: no symptoms Cardiovascular: Reports: no symptoms Gastrointestinal/Abdominal: Denies: nausea, vomiting, diarrhea Psychiatric: Reports: other - NA Skin: Denies: rash Musculoskeletal: Denies: pain Allergies: Coded Allergies: No Known Allergies (Unverified , 01/22/20) Objective Last 24 Hour Vital Signs Date Time Temp Pulse Resp B/P (MAP) Pulse Ox O2 Delivery O2 Flow Rate FiO2 01/25/20 09:10 81 136/87 01/25/20 09:09 81 136/87 01/25/20 08:00 95.7 81 19 136/87 (103) 97 01/25/20 04:07 96.6 01/25/20 04:00 97.8 119 21 120/85 (97) 96 01/25/20 04:00 94 01/25/20 00:00 96.6 90 16 127/84 (98) 95 01/25/20 00:00 105 01/24/20 22:31 96 124/95 01/24/20 21:00 Nasal Cannula 2.0 01/24/20 20:00 89 01/24/20 20:00 96.5 96 18 124/95 (105) 95 01/24/20 16:00 96 01/24/20 16:00 98.0 96 20 128/87 (101) 98 01/24/20 12:00 84 01/24/20 12:00 98.1 104 20 113/74 (87) 98 Intake and Output 01/24/20 01/25/20 19:00 07:00 Intake Total 1339 ml 550 ml Balance 1339 ml 550 ml Intake Oral 550 ml IV Total 789 ml 550 ml # Voids 3 5 # Bowel Movements 1 1 General Appearance: no acute distress HEENT: normocephalic Respiratory: chest wall non-tender, decreased breath sounds Cardiovascular: normal peripheral pulses Abdomen: normal bowel sounds Extremities: no cyanosis Microbiology Date/Time Source Procedure Growth Status 01/22/20 12:20 Nasopharynx Coronavirus COVID-19 PCR (OZZY) - Final Complete 01/22/20 14:48 Urine,Clean Catch Urine Culture - Preliminary Escherichia Coli Escherichia Coli#2 Resulted Laboratory Tests 01/24/20 11:00: Arterial Blood pH 7.313L, Arterial Blood Partial Pressure CO2 30.3L, Arterial Blood Partial Pressure O2 85.2, Arterial Blood HCO3 15.0*L, Arterial Blood Oxygen Saturation 94.8L, Arterial Blood Base Excess -9.8*L, Vishal Test Positive 01/24/20 12:45: D-Dimer 3.83H, Lactic Acid Level 1.80, Ferritin 1846H, Lactate Dehydrogenase 403H, Total Creatine Kinase 127, C-Reactive Protein, Quantitative 2.0H 01/25/20 04:00: White Blood Count 9.1, Red Blood Count 4.23, Hemoglobin 13.4, Hematocrit 38.4, Mean Corpuscular Volume 91, Mean Corpuscular Hemoglobin 31.8H, Mean Corpuscular Hemoglobin Concent 35.0, Red Cell Distribution Width 15.5H, Platelet Count 152, Mean Platelet Volume 6.3L, Neutrophils (%) (Auto) 75.7H, Lymphocytes (%) (Auto) 17.1L, Monocytes (%) (Auto) 6.3, Eosinophils (%) (Auto) 0.3, Basophils (%) (Auto ) 0.7, Sodium Level 136, Potassium Level 4.1, Chloride Level 104, Carbon Dioxide Level 20L, Anion Gap 13, Blood Urea Nitrogen 35H, Creatinine 1.4H, Estimat Glomerular Filtration Rate 37.2, Glucose Level 101, Calcium Level 7.5L, Phosphorus Level 3.1, Magnesium Level 2.1, Total Bilirubin 0.6, Aspartate Amino Transf (AST/SGOT) 628H, Alanine Aminotransferase (ALT/SGPT) 745H, Alkaline Phosphatase 182H, Total Protein 5.9L, Albumin 2.9L, Globulin 3.0, Albumin/ Globulin Ratio 1.0 Current Medications Medications (Trade) Dose Ordered Sig/Thao Route PRN Reason Start Time Stop Time Status Last Admin Dose Admin Acetaminophen (Tylenol) 650 mg Q4H PRN ORAL Mild Pain (Pain Scale 1-3) 01/22/20 15:45 02/21/20 15:44 01/25/20 03:37 Al Hydroxide/Mg Hydroxide (Mylanta II) 30 ml Q6H PRN ORAL dyspepsia 01/22/20 15:45 02/21/20 15:44 01/25/20 03:38 Albuterol/ Ipratropium (Albuterol/ Ipratropium) 3 ml Q6H PRN HHN Shortness of Breath 01/22/20 15:45 01/27/20 15:44 Amlodipine Besylate (Norvasc) 10 mg DAILY ORAL 01/23/20 09:00 02/22/20 08:59 01/25/20 09:10 Apixaban (Eliquis) 2.5 mg Q12HR ORAL 01/25/20 09:00 04/24/20 08:59 01/25/20 09:10 Azithromycin (Zithromax) 500 mg DAILY ORAL 01/23/20 09:00 01/30/20 08:59 01/25/20 09:09 Ceftriaxone Sodium 1 gm/ Dextrose 55 ml @ 110 mls/hr DAILY IVPB 01/23/20 09:00 01/30/20 08:59 01/25/20 09:11 Dextrose (Dextrose 50%) 25 ml Q30M PRN IV Hypoglycemia 01/22/20 15:45 04/21/20 15:44 Dextrose (Dextrose 50%) 50 ml Q30M PRN IV Hypoglycemia 01/22/20 15:45 04/21/20 15:44 Diphenhydramine HCl (Benadryl) 25 mg Q6H PRN ORAL Itching/Pruritis 01/22/20 15:45 02/21/20 15:44 01/25/20 03:35 Docusate Sodium (Colace) 100 mg EVERY 12 HOURS ORAL 01/22/20 21:00 02/21/20 20:59 01/23/20 10:08 Lactated Ringer's 1,000 ml @ 50 mls/hr Q20H IV 01/24/20 12:30 02/23/20 12:29 01/25/20 09:11 Lidocaine (Lidoderm 5% PATCH) 1 patch DAILY TDERMAL 01/24/20 10:30 04/23/20 10:29 01/25/20 09:11 Metoprolol Tartrate (Lopressor) 100 mg EVERY 12 HOURS ORAL 01/24/20 21:00 04/23/20 20:59 01/25/20 09:09 Ondansetron HCl (Zofran) 4 mg Q4H PRN IVP Nausea & Vomiting 01/23/20 17:30 02/22/20 17:29 01/23/20 17:40 Assessment/Plan Assessment/Plan IMPRESSION: 1. Right lung pneumonia. 2. Bilateral pleural effusions. 3. Atrial fibrillation. 4. Hypertension. DISCUSSION: Continue rate control as well as anticoagulation, broad-spectrum antibiotics. I will follow carefully. Consider echo. Saturating 96% on 2L/min O2 Josr Singh Omar Syed MD January 25, 2020 10:21
--- NOTE | 2020-01-25 10:27 | Diagnostic Imaging Report ---
EXAM: XR Chest, 1 View CLINICAL HISTORY: INFECT TECHNIQUE: Frontal view of the chest. COMPARISON: January 22, 2020 FINDINGS: Enlarged cardiac silhouette with central vascular congestion. Low lung volumes. Right lower lobe infiltrate and effusion again noted, slightly worse. Likely left basilar atelectasis/infiltrate and small left effusion. IMPRESSION: Right greater than left bilateral lower lobe atelectasis/infiltrates and effusions. Enlarged cardiac silhouette with central vascular congestion.
[2020-01-25 12:00] VITALS: BP 126/93
--- NOTE | 2020-01-25 14:27 | Internal Med Progress Note ---
Subjective Date of Service: January 25, 2020 Physician Name Cindi Velázquez Attending Physician Deo Crespo M.D. Current Medications Medications (Trade) Dose Ordered Sig/Thao Route PRN Reason Start Time Stop Time Status Last Admin Dose Admin Acetaminophen (Tylenol) 650 mg Q4H PRN ORAL Mild Pain (Pain Scale 1-3) 01/22/20 15:45 02/21/20 15:44 01/25/20 03:37 Al Hydroxide/Mg Hydroxide (Mylanta II) 30 ml Q6H PRN ORAL dyspepsia 01/22/20 15:45 02/21/20 15:44 01/25/20 03:38 Albuterol/ Ipratropium (Albuterol/ Ipratropium) 3 ml Q6H PRN HHN Shortness of Breath 01/22/20 15:45 01/27/20 15:44 Amlodipine Besylate (Norvasc) 10 mg DAILY ORAL 01/23/20 09:00 02/22/20 08:59 01/25/20 09:10 Apixaban (Eliquis) 2.5 mg Q12HR ORAL 01/25/20 09:00 04/24/20 08:59 01/25/20 09:10 Azithromycin (Zithromax) 500 mg DAILY ORAL 01/23/20 09:00 01/30/20 08:59 01/25/20 09:09 Ceftriaxone Sodium 1 gm/ Dextrose 55 ml @ 110 mls/hr DAILY IVPB 01/23/20 09:00 01/30/20 08:59 01/25/20 09:11 Dextrose (Dextrose 50%) 25 ml Q30M PRN IV Hypoglycemia 01/22/20 15:45 04/21/20 15:44 Dextrose (Dextrose 50%) 50 ml Q30M PRN IV Hypoglycemia 01/22/20 15:45 04/21/20 15:44 Diphenhydramine HCl (Benadryl) 25 mg Q6H PRN ORAL Itching/Pruritis 01/22/20 15:45 02/21/20 15:44 01/25/20 03:35 Docusate Sodium (Colace) 100 mg EVERY 12 HOURS ORAL 01/22/20 21:00 02/21/20 20:59 01/23/20 10:08 Lidocaine (Lidoderm 5% PATCH) 1 patch DAILY TDERMAL 01/24/20 10:30 04/23/20 10:29 01/25/20 09:11 Metoprolol Tartrate (Lopressor) 100 mg EVERY 12 HOURS ORAL 01/24/20 21:00 04/23/20 20:59 01/25/20 09:09 Ondansetron HCl (Zofran) 4 mg Q4H PRN IVP Nausea & Vomiting 01/23/20 17:30 02/22/20 17:29 01/23/20 17:40 Allergies: Coded Allergies: No Known Allergies (Unverified , 01/22/20) Subjective Echo returned showing an EF of 25%, severe valvular abnormalities and elevated RA pressure along w/ severe PHTN. DC IVF and add Lasix IV BID. Also will defer to Cardio, but consider Coreg in place of Metoprolol. Patients COVID test returned negative, however do recommend we re-swab given elevated predictive markers. That being said, elevated liver enzymes could be inherent Liver pathology for which we are pending Abd US vs Congestive Hepatopathy. Will trend now that patient is on Diuretics. Objective Last Vital Signs Date Time Temp Pulse Resp B/P (MAP) Pulse Ox O2 Delivery O2 Flow Rate FiO2 01/25/20 12:00 89 01/25/20 12:00 96.8 20 126/93 (104) 97 01/25/20 09:00 Nasal Cannula 2.0 Laboratory Tests Test 01/25/20 04:00 White Blood Count 9.1 K/UL (4.8-10.8) Red Blood Count 4.23 M/UL (4.20-5.40) Hemoglobin 13.4 G/DL (12.0-16.0) Hematocrit 38.4 % (37.0-47.0) Mean Corpuscular Volume 91 FL (80-99) Mean Corpuscular Hemoglobin 31.8 PG (27.0-31.0) H Mean Corpuscular Hemoglobin Concent 35.0 G/DL (32.0-36.0) Red Cell Distribution Width 15.5 % (11.6-14.8) H Platelet Count 152 K/UL (150-450) Mean Platelet Volume 6.3 FL (6.5-10.1) L Neutrophils (%) (Auto) 75.7 % (45.0-75.0) H Lymphocytes (%) (Auto) 17.1 % (20.0-45.0) L Monocytes (%) (Auto) 6.3 % (1.0-10.0) Eosinophils (%) (Auto) 0.3 % (0.0-3.0) Basophils (%) (Auto) 0.7 % (0.0-2.0) Sodium Level 136 MMOL/L (136-145) Potassium Level 4.1 MMOL/L (3.5-5.1) Chloride Level 104 MMOL/L (98-107) Carbon Dioxide Level 20 MMOL/L (21-32) L Anion Gap 13 mmol/L (5-15) Blood Urea Nitrogen 35 mg/dL (7-18) H Creatinine 1.4 MG/DL (0.55-1.30) H Estimat Glomerular Filtration Rate 37.2 mL/min (>60) Glucose Level 101 MG/DL (74-106) Calcium Level 7.5 MG/DL (8.5-10.1) L Phosphorus Level 3.1 MG/DL (2.5-4.9) Magnesium Level 2.1 MG/DL (1.8-2.4) Total Bilirubin 0.6 MG/DL (0.2-1.0) Aspartate Amino Transf (AST/SGOT) 628 U/L (15-37) H Alanine Aminotransferase (ALT/SGPT) 745 U/L (12-78) H Alkaline Phosphatase 182 U/L (46-116) H Total Protein 5.9 G/DL (6.4-8.2) L Albumin 2.9 G/DL (3.4-5.0) L Globulin 3.0 g/dL Albumin/Globulin Ratio 1.0 (1.0-2.7) Microbiology Date/Time Source Procedure Growth Status 01/22/20 14:48 Urine,Clean Catch Urine Culture - Preliminary Escherichia Coli Escherichia Coli#2 Resulted Intake and Output 01/24/20 01/25/20 19:00 07:00 Intake Total 1339 ml 550 ml Balance 1339 ml 550 ml Intake Oral 550 ml IV Total 789 ml 550 ml # Voids 3 5 # Bowel Movements 1 1 Objective General Appearance: WD/WN, no apparent distress Cardiovascular: regularly irregular Respiratory/Chest: normal breath sounds, no respiratory distress Abdomen: normal bowel sounds 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 grossly normal, oriented x 3 Assessment/Plan Assessment/Plan Assessment #Afib RVR, on home atenolol and amiodarone, both are being held #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%, severe valvular abnormalities, PHTN #COVID vs CAP ; CXR w/ BL effusion and RLL infiltrate, CT chest confirms; preliminary COVID test negative #Metabolic Acidosis #ANDREA vs CKD #Transaminitis--> DDx pending Abd US vs Congestive Hepatopathy Plan Consultants include nephro, ID, pulm, Cardo Lasix 40mg IV BID Elaquis BID Metoprolol --> consider transitioning to Coreg Azithromycin and Rocephin IV, Eng[place] Cx, trend predictive markers Trend liver enzymes, pending COVID predictive markers ( LDH, Ferritin, Ddimer, CRP); Await Abd US NS @ 75 cc/hr Cardiac Diet 01/23: Will obtain abdominal US given liver enzymes although suspect from COVID; obtain lactic acid given metabolic acidosis, and also echo. 01/24: Recommend repeat COVID; pending Abd US . Lasix initiated Cindi Velázquez D.O. January 25, 2020 14:27
--- NOTE | 2020-01-25 14:37 | Diagnostic Imaging Report ---
EXAM: US Abdomen Complete CLINICAL HISTORY: ABD PAIN TECHNIQUE: Real-time ultrasound of the abdomen with image documentation. COMPARISON: None FINDINGS: Liver: Liver measures 15.7 cm. No focal lesion. No intrahepatic bile duct dilation. Gallbladder: No gallstones or sludge. No significant gallbladder wall thickening or pericholecystic fluid. Negative sonographic Daniel sign. Common bile duct: Normal common bile duct measuring up to 5.6 mm. No stones. No dilation. Pancreas: Visualized portions of the pancreas are unremarkable. Kidneys: Right kidney measures 10.0 cm in length. No hydronephrosis or stone. Left kidney measures 9.8 cm in length. No hydronephrosis or stone. Spleen: Spleen measures 6.6 cm. No focal lesion. Aorta: Visualized portions of the aorta are unremarkable. Inferior vena cava: Visualized portions of the IVC are unremarkable. Other vasculature: Patent main portal vein with normal direction of flow. Free fluid: Trace ascites along the right liver. Pleural space: Moderate to large left greater than right pleural effusions. IMPRESSION: 1. Moderate large left greater than right pleural effusions. 2. Trace ascites along the right liver.
[2020-01-25 16:00] VITALS: BP 130/78
[2020-01-25 20:00] VITALS: BP 136/90
[2020-01-25] MEDS: Zosyn 3.375gm in NS 110ml IVPB SCH (21:03)
[2020-01-25] MEDS: TraZODone 50mg tab ORAL SCH (21:03)
[2020-01-26] VITALS: BP 122/88
[2020-01-26 04:00] VITALS: BP 118/84
[2020-01-26 06:44] LABS: BASOPHILS % (AUTO) 0.7 % (0.0-2.0); HEMATOCRIT 38.1 % (37.0-47.0); HEMOGLOBIN 13.3 G/DL (12.0-16.0); LYMPHOCYTES % (AUTO) 16.4 % (20.0-45.0); MEAN CORPUSCULAR VOLUME 92 FL (80-99); MONOCYTES % (AUTO) 6.9 % (1.0-10.0); NEUTROPHILS % (AUTO) 75.1 % (45.0-75.0); PLATELET COUNT 143 K/UL (150-450); RED BLOOD COUNT 4.15 M/UL (4.20-5.40); RED CELL DISTRIBUTION WIDTH 16.2 % (11.6-14.8); WHITE BLOOD COUNT 5.6 K/UL (4.8-10.8)
[2020-01-26 07:16] LABS: ALANINE AMINOTRANSFERASE 883 U/L (12-78); ALBUMIN 2.8 G/DL (3.4-5.0); ALBUMIN/GLOBULIN RATIO 0.9 (1.0-2.7); ALKALINE PHOSPHATASE 176 U/L (46-116); ANION GAP 11 mmol/L (5-15); ASPARTATE AMINO TRANSFERASE 721 U/L (15-37); BILIRUBIN,TOTAL 0.7 MG/DL (0.2-1.0); BLOOD UREA NITROGEN 25 mg/dL (7-18); CALCIUM 7.8 MG/DL (8.5-10.1); CARBON DIOXIDE 26 MMOL/L (21-32); CHLORIDE 101 MMOL/L (98-107); CREATININE 1.2 MG/DL (0.55-1.30); POTASSIUM 2.8 MMOL/L (3.5-5.1); SODIUM 138 MMOL/L (136-145)
[2020-01-26 07:58] LABS: PHOSPHORUS 3.1 MG/DL (2.5-4.9)
[2020-01-26 08:00] VITALS: BP 130/97
[2020-01-26] MEDS: Docusate 100mg cap ORAL SCH ×2 (08:51→21:06)
[2020-01-26] MEDS: Eliquis 2.5mg tablet ORAL SCH ×2 (08:53→21:06)
[2020-01-26] MEDS: Azithromycin 250mg tab ORAL SCH (08:53)
[2020-01-26] MEDS: Metoprolol Tartrate 100mg tab ORAL SCH (08:54)
[2020-01-26] MEDS: Zosyn 3.375gm in NS 110ml IVPB SCH (08:55)
--- NOTE | 2020-01-26 09:40 | General Progress Note ---
Assessment/Plan Problem List: (1) Transaminitis ICD Codes: R74.0 - Nonspecific elevation of levels of transaminase and lactic acid dehydrogenase [LDH] SNOMED: 282475988, 392775739 (2) Pneumonia ICD Codes: J18.9 - Pneumonia, unspecified organism SNOMED: 361577495 (3) Atrial fibrillation with RVR ICD Codes: I48.91 - Unspecified atrial fibrillation SNOMED: 375169189471378 Status: stable Assessment/Plan: rising LFTS, ? abx related ceftriaxone has been Dc yesterday will see if that will help abd us reviewed hepatitis panel pend repeat labs in am will fu Subjective ROS Limited/Unobtainable: Yes Allergies: Coded Allergies: No Known Allergies (Unverified , 01/22/20) Objective Last 24 Hour Vital Signs Date Time Temp Pulse Resp B/P (MAP) Pulse Ox O2 Delivery O2 Flow Rate FiO2 01/26/20 08:54 93 130/97 01/26/20 08:51 93 130/97 01/26/20 08:00 96.4 93 18 130/97 (108) 97 01/26/20 04:00 102 01/26/20 04:00 96.8 94 18 118/84 (95) 97 01/26/20 00:00 96.8 104 18 122/88 (99) 97 01/26/20 00:00 104 01/25/20 21:09 81 136/90 01/25/20 21:00 Nasal Cannula 2.0 01/25/20 20:50 97 Nasal Cannula 2.0 28 01/25/20 20:50 94 18 98 Nasal Cannula 2.0 28 01/25/20 20:00 96.8 89 16 136/90 (105) 96 01/25/20 20:00 95 01/25/20 16:00 97 01/25/20 16:00 96.6 60 18 130/78 (95) 98 01/25/20 12:00 89 01/25/20 12:00 96.8 71 20 126/93 (104) 97 Intake and Output 01/25/20 01/26/20 19:00 07:00 Intake Total 330 ml 230.0 ml Output Total 2200 ml Balance 330 ml -1970.0 ml Intake Oral 120 ml IV Total 330 ml 110.0 ml Output Urine Total 2200 ml # Voids 7 Laboratory Tests 01/26/20 05:00: White Blood Count 5.6, Red Blood Count 4.15L, Hemoglobin 13.3, Hematocrit 38.1, Mean Corpuscular Volume 92, Mean Corpuscular Hemoglobin 32.1H, Mean Corpuscular Hemoglobin Concent 35.0, Red Cell Distribution Width 16.2H, Platelet Count 143L , Mean Platelet Volume 6.9, Neutrophils (%) (Auto) 75.1H, Lymphocytes (%) (Auto ) 16.4L, Monocytes (%) (Auto) 6.9, Eosinophils (%) (Auto) 1.0, Basophils (%) ( Auto) 0.7, Sodium Level [Pending], Potassium Level [Pending], Chloride Level [ Pending], Carbon Dioxide Level [Pending], Anion Gap 11, Blood Urea Nitrogen [ Pending], Creatinine [Pending], Estimat Glomerular Filtration Rate [Pending], Glucose Level [Pending], Calcium Level [Pending], Phosphorus Level 3.1, Magnesium Level 1.7L, Total Bilirubin 0.7, Aspartate Amino Transf (AST/SGOT) 721H, Alanine Aminotransferase (ALT/SGPT) 883H, Alkaline Phosphatase 176H, Total Protein 5.8L, Albumin 2.8L, Globulin 3.0, Albumin/Globulin Ratio 0.9L, Hepatitis A IgM Antibody [Pending], Hepatitis B Surface Antigen [Pending], Hepatitis B Core IgM Antibody [Pending], Hepatitis C Antibody [Pending] Height (Feet): 5 Height (Inches): 0.00 Weight (Pounds): 108 General Appearance: no apparent distress EENT: normal ENT inspection Neck: normal alignment Cardiovascular: normal rate, gallop/S3 Abdomen: normal bowel sounds, non tender, soft Extremities: non-tender Ish Benoit MD January 26, 2020 09:40
[2020-01-26] MEDS ORDERED: Sodium Chloride for KCL Premix X 4hrs IV SCH (11:45)
--- NOTE | 2020-01-26 11:54 | Cardiology Progress Note ---
Assessment/Plan Status: stable Assessment/Plan Assessment/Plan Status: stable Assessment/Plan: ASSESSMENT: Atrial fibrillation Hypertension Pleural effusion ANDREA UTI HLD Respiratory failure Elevated livery function tests Elevated CRP Systolic heart failure Severe pulmonary hypertension PLAN: -Switch metoprolol to coreg for AFIB rate control and systolic heart failure -LIFE VEST for arrhythmias protection -Anticoagulation with Eliquis for AFIB and possible LV thrombus -D/c Amiodarone re elevated LFT -D/c norvasc -Start losartan for afterload reduction and BP control -Echocardiogram reviewed with severe PAH and Systolic dysfunction -Will need ischemia evaluation when stable -No indication for cardioversion, patient hemodynamically stable -Outpatient EP consult for AFIB Ablation and possible ICD -Maintain lasix for diuresis -Add aldactone 25 mg -Replete electrolytes -Poor prognosis Subjective Cardiovascular: Reports: no symptoms Respiratory: Reports: no symptoms Gastrointestinal/Abdominal: Reports: no symptoms Genitourinary: Reports: no symptoms Subjective No acute events, TTE with severe systolic dysfunction possible LV thrombus, severe PAH and moderate TR LFT rising - congestive liver? Potassium low today, -lasix stopped Objective Last 24 Hour Vital Signs Date Time Temp Pulse Resp B/P (MAP) Pulse Ox O2 Delivery O2 Flow Rate FiO2 01/26/20 09:00 Nasal Cannula 2.0 01/26/20 08:54 93 130/97 01/26/20 08:51 93 130/97 01/26/20 08:00 91 01/26/20 08:00 96.4 93 18 130/97 (108) 97 01/26/20 04:00 102 01/26/20 04:00 96.8 94 18 118/84 (95) 97 01/26/20 00:00 96.8 104 18 122/88 (99) 97 01/26/20 00:00 104 01/25/20 21:09 81 136/90 01/25/20 21:00 Nasal Cannula 2.0 01/25/20 20:50 97 Nasal Cannula 2.0 28 01/25/20 20:50 94 18 98 Nasal Cannula 2.0 28 01/25/20 20:00 96.8 89 16 136/90 (105) 96 01/25/20 20:00 95 01/25/20 16:00 97 01/25/20 16:00 96.6 60 18 130/78 (95) 98 01/25/20 12:00 89 5/25/20 12:00 96.8 71 20 126/93 (104) 97 General Appearance: no apparent distress, alert EENT: PERRL/EOMI, normal ENT inspection, TMs normal, pharynx normal Neck: non-tender, normal alignment, JVD Rhythm: Afib Cardiovascular: normal rate, gallop/S4, arrhythmia, irregularly irregular Respiratory/Chest: chest wall non-tender, lungs clear, normal breath sounds Abdomen: normal bowel sounds, non tender, soft, no organomegaly, no mass Extremities: normal range of motion, non-tender, normal inspection, no calf tenderness, no swelling 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 grossly normal, no motor/sensory deficits Intake and Output 01/25/20 01/26/20 19:00 07:00 Intake Total 330 ml 230.0 ml Output Total 2200 ml Balance 330 ml -1970.0 ml Intake Oral 120 ml IV Total 330 ml 110.0 ml Output Urine Total 2200 ml # Voids 7 Laboratory Tests Test 01/26/20 05:00 White Blood Count 5.6 K/UL (4.8-10.8) Red Blood Count 4.15 M/UL (4.20-5.40) L Hemoglobin 13.3 G/DL (12.0-16.0) Hematocrit 38.1 % (37.0-47.0) Mean Corpuscular Volume 92 FL (80-99) Mean Corpuscular Hemoglobin 32.1 PG (27.0-31.0) H Mean Corpuscular Hemoglobin Concent 35.0 G/DL (32.0-36.0) Red Cell Distribution Width 16.2 % (11.6-14.8) H Platelet Count 143 K/UL (150-450) L Mean Platelet Volume 6.9 FL (6.5-10.1) Neutrophils (%) (Auto) 75.1 % (45.0-75.0) H Lymphocytes (%) (Auto) 16.4 % (20.0-45.0) L Monocytes (%) (Auto) 6.9 % (1.0-10.0) Eosinophils (%) (Auto) 1.0 % (0.0-3.0) Basophils (%) (Auto) 0.7 % (0.0-2.0) Sodium Level Pending Potassium Level Pending Chloride Level Pending Carbon Dioxide Level Pending Anion Gap 11 mmol/L (5-15) Blood Urea Nitrogen Pending Creatinine Pending Estimat Glomerular Filtration Rate Pending Glucose Level Pending Calcium Level Pending Phosphorus Level 3.1 MG/DL (2.5-4.9) Magnesium Level 1.7 MG/DL (1.8-2.4) L Total Bilirubin 0.7 MG/DL (0.2-1.0) Aspartate Amino Transf (AST/SGOT) 721 U/L (15-37) H Alanine Aminotransferase (ALT/SGPT) 883 U/L (12-78) H Alkaline Phosphatase 176 U/L (46-116) H Total Protein 5.8 G/DL (6.4-8.2) L Albumin 2.8 G/DL (3.4-5.0) L Globulin 3.0 g/dL Albumin/Globulin Ratio 0.9 (1.0-2.7) L Hepatitis A IgM Antibody Pending Hepatitis B Surface Antigen Pending Hepatitis B Core IgM Antibody Pending Hepatitis C Antibody Pending Butch Brunson MD January 26, 2020 11:54
[2020-01-26 12:00] VITALS: BP 107/70
--- NOTE | 2020-01-26 13:26 | Nephrology Progress Note ---
Assessment/Plan Plan #ANDREA - likely pre-renal azotemia in the setting of renal hypoperfusion due to RVR and sepsis #Sepsis - r/o COVID #CHF- acute on chrobuc #Hypoxemic resp failure due to pneumonia - r/o COVID # Elevated LFTs #HTN #Afib #HLD - replete mag and phos - GI consulted for elevated LFTs - trend LFTs - abd Us reviewed - monitor Cr and electrolytes - ID eval - pulm eval - antibiotics per ID - cardiology eval for afib RVR - continue apixaban 2.5mg BID - continue metop 100 - continue aldactrone 25mg daily - monitor bmp , mag and phos daily - avoid nephrotoxins - strict I&Os - daily weights Subjective ROS Limited/Unobtainable: No Constitutional: Denies: no symptoms, chills, diaphoresis, fever, malaise, weakness, other HEENT: Denies: no symptoms, eye pain, blurred vision, tearing, double vision, ear pain, ear discharge, nose pain, nose congestion, throat pain, throat swelling, mouth pain, mouth swelling, other Genitourinary: Denies: no symptoms, burning, discharge, frequency, flank pain, hematuria, incontinence, pain, urgency, other Neurologic/Psychiatric: Denies: no symptoms, anxiety, depressed, emotional problems, headache, numbness, paresthesia, pre-existing deficit, seizure, tingling, tremors, weakness, other Subjective breathing stable mag and K low- repleted cr 1.2 EF 25% LFts noted GI consulted Abd US: IMPRESSION: 1. Moderate large left greater than right pleural effusions. 2. Trace ascites along the right liver. Objective Objective Last 24 Hour Vital Signs Date Time Temp Pulse Resp B/P (MAP) Pulse Ox O2 Delivery O2 Flow Rate FiO2 01/26/20 12:00 96.1 93 20 107/70 (82) 98 01/26/20 12:00 89 01/26/20 09:00 Nasal Cannula 2.0 01/26/20 08:54 93 130/97 01/26/20 08:51 93 130/97 01/26/20 08:00 91 01/26/20 08:00 96.4 93 18 130/97 (108) 97 01/26/20 04:00 102 5/26/20 04:00 96.8 94 18 118/84 (95) 97 01/26/20 00:00 96.8 104 18 122/88 (99) 97 01/26/20 00:00 104 01/25/20 21:09 81 136/90 01/25/20 21:00 Nasal Cannula 2.0 01/25/20 20:50 97 Nasal Cannula 2.0 28 01/25/20 20:50 94 18 98 Nasal Cannula 2.0 28 01/25/20 20:00 96.8 89 16 136/90 (105) 96 01/25/20 20:00 95 01/25/20 16:00 97 01/25/20 16:00 96.6 60 18 130/78 (95) 98 Intake and Output 01/25/20 01/26/20 19:00 07:00 Intake Total 330 ml 230.0 ml Output Total 2200 ml Balance 330 ml -1970.0 ml Intake Oral 120 ml IV Total 330 ml 110.0 ml Output Urine Total 2200 ml # Voids 7 Laboratory Tests 01/26/20 05:00: White Blood Count 5.6, Red Blood Count 4.15L, Hemoglobin 13.3, Hematocrit 38.1, Mean Corpuscular Volume 92, Mean Corpuscular Hemoglobin 32.1H, Mean Corpuscular Hemoglobin Concent 35.0, Red Cell Distribution Width 16.2H, Platelet Count 143L , Mean Platelet Volume 6.9, Neutrophils (%) (Auto) 75.1H, Lymphocytes (%) (Auto ) 16.4L, Monocytes (%) (Auto) 6.9, Eosinophils (%) (Auto) 1.0, Basophils (%) ( Auto) 0.7, Sodium Level [Pending], Potassium Level [Pending], Chloride Level [ Pending], Carbon Dioxide Level [Pending], Anion Gap 11, Blood Urea Nitrogen [ Pending], Creatinine [Pending], Estimat Glomerular Filtration Rate [Pending], Glucose Level [Pending], Calcium Level [Pending], Phosphorus Level 3.1, Magnesium Level 1.7L, Total Bilirubin 0.7, Aspartate Amino Transf (AST/SGOT) 721H, Alanine Aminotransferase (ALT/SGPT) 883H, Alkaline Phosphatase 176H, Total Protein 5.8L, Albumin 2.8L, Globulin 3.0, Albumin/Globulin Ratio 0.9L, Hepatitis A IgM Antibody [Pending], Hepatitis B Surface Antigen [Pending], Hepatitis B Core IgM Antibody [Pending], Hepatitis C Antibody [Pending] Height (Feet): 5 Height (Inches): 0.00 Weight (Pounds): 108 Deo Crespo M.D. January 26, 2020 13:26
--- NOTE | 2020-01-26 15:03 | Internal Med Progress Note ---
Subjective Date of Service: January 26, 2020 Physician Name Cindi Velázquez Attending Physician Deo Crespo M.D. Current Medications Medications (Trade) Dose Ordered Sig/Thao Route PRN Reason Start Time Stop Time Status Last Admin Dose Admin Acetaminophen (Tylenol) 650 mg Q4H PRN ORAL Mild Pain (Pain Scale 1-3) 01/22/20 15:45 02/21/20 15:44 01/25/20 03:37 Al Hydroxide/Mg Hydroxide (Mylanta II) 30 ml Q6H PRN ORAL dyspepsia 01/22/20 15:45 02/21/20 15:44 01/25/20 03:38 Albuterol/ Ipratropium (Albuterol/ Ipratropium) 3 ml Q6H PRN HHN Shortness of Breath 01/22/20 15:45 01/27/20 15:44 Apixaban (Eliquis) 2.5 mg Q12HR ORAL 01/25/20 09:00 04/24/20 08:59 01/26/20 08:53 Carvedilol (Coreg) 12.5 mg EVERY 12 HOURS ORAL 01/26/20 21:00 02/25/20 20:59 Dextrose (Dextrose 50%) 25 ml Q30M PRN IV Hypoglycemia 01/22/20 15:45 04/21/20 15:44 Dextrose (Dextrose 50%) 50 ml Q30M PRN IV Hypoglycemia 01/22/20 15:45 04/21/20 15:44 Diphenhydramine HCl (Benadryl) 25 mg Q6H PRN ORAL Itching/Pruritis 01/22/20 15:45 02/21/20 15:44 01/25/20 03:35 Docusate Sodium (Colace) 100 mg EVERY 12 HOURS ORAL 01/22/20 21:00 02/21/20 20:59 01/26/20 08:51 Ertapenem 1 gm/ Sodium Chloride 55 ml @ 110 mls/hr Q24H IVPB 01/26/20 15:00 01/31/20 14:59 UNV Furosemide (Lasix) 40 mg EVERY 12 HOURS IV 01/25/20 14:30 02/24/20 14:29 01/25/20 21:03 Lidocaine (Lidoderm 5% PATCH) 1 patch DAILY TDERMAL 01/24/20 10:30 04/23/20 10:29 01/26/20 08:55 Magnesium Sulfate 100 ml @ 100 mls/hr Q1H IVPB 01/26/20 17:00 01/26/20 18:59 Ondansetron HCl (Zofran) 4 mg Q4H PRN IVP Nausea & Vomiting 01/23/20 17:30 02/22/20 17:29 01/23/20 17:40 Potassium Chloride 100 ml @ 50 mls/hr Q1H IVPB 01/26/20 12:00 01/26/20 15:59 01/26/20 14:08 Sodium Chloride 400 ml @ 100 mls/hr Q4H IV 01/26/20 11:45 01/26/20 15:44 01/26/20 12:31 Spironolactone (Aldactone) 25 mg DAILY ORAL 01/27/20 09:00 02/26/20 08:59 Trazodone HCl (Desyrel) 50 mg BEDTIME ORAL 01/25/20 21:00 02/24/20 20:59 01/25/20 21:03 Allergies: Coded Allergies: No Known Allergies (Unverified , 01/22/20) Subjective Patients urine returned positive for ESBL so will put on Ertapnem. She has also been transitioned to Coreg and Aldactone along w/ IV lasix. Suspect she does have Congestive Hepatopathy, and will require life vest per Cardio. Abd US noted , did repeat COVID to ensure but suspect all pulm issues, liver enzymes, and renal function issues are related to decompensated HF. She still has some BL LE edema. Objective Last Vital Signs Date Time Temp Pulse Resp B/P (MAP) Pulse Ox O2 Delivery O2 Flow Rate FiO2 01/26/20 12:00 96.1 93 20 107/70 (82) 98 01/26/20 09:00 Nasal Cannula 2.0 01/25/20 20:50 28 Laboratory Tests Test 01/26/20 05:00 White Blood Count 5.6 K/UL (4.8-10.8) Red Blood Count 4.15 M/UL (4.20-5.40) L Hemoglobin 13.3 G/DL (12.0-16.0) Hematocrit 38.1 % (37.0-47.0) Mean Corpuscular Volume 92 FL (80-99) Mean Corpuscular Hemoglobin 32.1 PG (27.0-31.0) H Mean Corpuscular Hemoglobin Concent 35.0 G/DL (32.0-36.0) Red Cell Distribution Width 16.2 % (11.6-14.8) H Platelet Count 143 K/UL (150-450) L Mean Platelet Volume 6.9 FL (6.5-10.1) Neutrophils (%) (Auto) 75.1 % (45.0-75.0) H Lymphocytes (%) (Auto) 16.4 % (20.0-45.0) L Monocytes (%) (Auto) 6.9 % (1.0-10.0) Eosinophils (%) (Auto) 1.0 % (0.0-3.0) Basophils (%) (Auto) 0.7 % (0.0-2.0) Sodium Level Pending Potassium Level Pending Chloride Level Pending Carbon Dioxide Level Pending Anion Gap 11 mmol/L (5-15) Blood Urea Nitrogen Pending Creatinine Pending Estimat Glomerular Filtration Rate Pending Glucose Level Pending Calcium Level Pending Phosphorus Level 3.1 MG/DL (2.5-4.9) Magnesium Level 1.7 MG/DL (1.8-2.4) L Total Bilirubin 0.7 MG/DL (0.2-1.0) Aspartate Amino Transf (AST/SGOT) 721 U/L (15-37) H Alanine Aminotransferase (ALT/SGPT) 883 U/L (12-78) H Alkaline Phosphatase 176 U/L (46-116) H Total Protein 5.8 G/DL (6.4-8.2) L Albumin 2.8 G/DL (3.4-5.0) L Globulin 3.0 g/dL Albumin/Globulin Ratio 0.9 (1.0-2.7) L Hepatitis A IgM Antibody Pending Hepatitis B Surface Antigen Pending Hepatitis B Core IgM Antibody Pending Hepatitis C Antibody Pending Intake and Output 01/25/20 01/26/20 19:00 07:00 Intake Total 330 ml 230.0 ml Output Total 2200 ml Balance 330 ml -1970.0 ml Intake Oral 120 ml IV Total 330 ml 110.0 ml Output Urine Total 2200 ml # Voids 7 Objective General Appearance: WD/WN, no apparent distress Cardiovascular: regularly irregular, BL LE Edema Respiratory/Chest: normal breath sounds, no respiratory distress Abdomen: normal bowel sounds Neurologic: shingle trimmer II-XII grossly normal, oriented x 3 Assessment/Plan Assessment/Plan Assessment #Afib RVR, on home atenolol and amiodarone, both are being held #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%, severe valvular abnormalities, PHTN #COVID vs CAP ; CXR w/ BL effusion and RLL infiltrate, CT chest confirms; preliminary COVID test negative #ESBL UTI #Metabolic Acidosis #ANDREA vs CKD #Transaminitis--> Likely congestive hepatopathy, but will rule out COVID * 2, Abd US WNL Plan Consultants include nephro, ID, pulm, Cardo Lasix 40mg IV BID , Aldactone, Coreg BID Elaquis BID Metoprolol --> consider transitioning to Coreg Add Ertapenem for UTI Trend liver enzymes, pending COVID predictive markers ( LDH, Ferritin, Ddimer, CRP)--> initial COVID negative, pending repeat Cardiac Diet 01/23: Will obtain abdominal US given liver enzymes although suspect from COVID; obtain lactic acid given metabolic acidosis, and also echo. 01/24: Recommend repeat COVID; pending Abd US . Lasix initiated 01/25: Pending repeat COVID, transition to Ertapenem, continue Diuresis, Replete potassium Cindi Velázquez D.O. January 26, 2020 15:03
--- NOTE | 2020-01-26 15:43 | Pulmonology Progress Note ---
Subjective ROS Limited/Unobtainable: No Interval Events: None new Constitutional: Reports: fatigue; Denies: fever HEENT: Repors: no symptoms Respiratory: Reports: no symptoms Cardiovascular: Reports: no symptoms Gastrointestinal/Abdominal: Denies: nausea, vomiting, diarrhea Psychiatric: Reports: other - NA Skin: Denies: rash Musculoskeletal: Denies: pain Allergies: Coded Allergies: No Known Allergies (Unverified , 01/22/20) Objective Last 24 Hour Vital Signs Date Time Temp Pulse Resp B/P (MAP) Pulse Ox O2 Delivery O2 Flow Rate FiO2 01/26/20 12:00 96.1 93 20 107/70 (82) 98 01/26/20 12:00 89 01/26/20 09:00 Nasal Cannula 2.0 01/26/20 08:54 93 130/97 01/26/20 08:51 93 130/97 01/26/20 08:00 91 01/26/20 08:00 96.4 93 18 130/97 (108) 97 01/26/20 04:00 102 01/26/20 04:00 96.8 94 18 118/84 (95) 97 01/26/20 00:00 96.8 104 18 122/88 (99) 97 01/26/20 00:00 104 01/25/20 21:09 81 136/90 01/25/20 21:00 Nasal Cannula 2.0 01/25/20 20:50 97 Nasal Cannula 2.0 28 01/25/20 20:50 94 18 98 Nasal Cannula 2.0 28 01/25/20 20:00 96.8 89 16 136/90 (105) 96 01/25/20 20:00 95 01/25/20 16:00 97 01/25/20 16:00 96.6 60 18 130/78 (95) 98 Intake and Output 01/25/20 01/26/20 19:00 07:00 Intake Total 330 ml 230.0 ml Output Total 2200 ml Balance 330 ml -1970.0 ml Intake Oral 120 ml IV Total 330 ml 110.0 ml Output Urine Total 2200 ml # Voids 7 General Appearance: no acute distress HEENT: normocephalic Respiratory: chest wall non-tender, decreased breath sounds Cardiovascular: normal peripheral pulses Abdomen: normal bowel sounds Extremities: no cyanosis Laboratory Tests 01/26/20 05:00: White Blood Count 5.6, Red Blood Count 4.15L, Hemoglobin 13.3, Hematocrit 38.1, Mean Corpuscular Volume 92, Mean Corpuscular Hemoglobin 32.1H, Mean Corpuscular Hemoglobin Concent 35.0, Red Cell Distribution Width 16.2H, Platelet Count 143L , Mean Platelet Volume 6.9, Neutrophils (%) (Auto) 75.1H, Lymphocytes (%) (Auto ) 16.4L, Monocytes (%) (Auto) 6.9, Eosinophils (%) (Auto) 1.0, Basophils (%) ( Auto) 0.7, Sodium Level [Pending], Potassium Level [Pending], Chloride Level [ Pending], Carbon Dioxide Level [Pending], Anion Gap 11, Blood Urea Nitrogen [ Pending], Creatinine [Pending], Estimat Glomerular Filtration Rate [Pending], Glucose Level [Pending], Calcium Level [Pending], Phosphorus Level 3.1, Magnesium Level 1.7L, Total Bilirubin 0.7, Aspartate Amino Transf (AST/SGOT) 721H, Alanine Aminotransferase (ALT/SGPT) 883H, Alkaline Phosphatase 176H, Total Protein 5.8L, Albumin 2.8L, Globulin 3.0, Albumin/Globulin Ratio 0.9L, Hepatitis A IgM Antibody [Pending], Hepatitis B Surface Antigen [Pending], Hepatitis B Core IgM Antibody [Pending], Hepatitis C Antibody [Pending] Current Medications Medications (Trade) Dose Ordered Sig/Thao Route PRN Reason Start Time Stop Time Status Last Admin Dose Admin Acetaminophen (Tylenol) 650 mg Q4H PRN ORAL Mild Pain (Pain Scale 1-3) 01/22/20 15:45 02/21/20 15:44 01/25/20 03:37 Al Hydroxide/Mg Hydroxide (Mylanta II) 30 ml Q6H PRN ORAL dyspepsia 01/22/20 15:45 02/21/20 15:44 01/25/20 03:38 Albuterol/ Ipratropium (Albuterol/ Ipratropium) 3 ml Q6H PRN HHN Shortness of Breath 01/22/20 15:45 01/27/20 15:44 Apixaban (Eliquis) 2.5 mg Q12HR ORAL 01/25/20 09:00 04/24/20 08:59 01/26/20 08:53 Carvedilol (Coreg) 12.5 mg EVERY 12 HOURS ORAL 01/26/20 21:00 02/25/20 20:59 Dextrose (Dextrose 50%) 25 ml Q30M PRN IV Hypoglycemia 01/22/20 15:45 04/21/20 15:44 Dextrose (Dextrose 50%) 50 ml Q30M PRN IV Hypoglycemia 01/22/20 15:45 04/21/20 15:44 Diphenhydramine HCl (Benadryl) 25 mg Q6H PRN ORAL Itching/Pruritis 01/22/20 15:45 02/21/20 15:44 01/25/20 03:35 Docusate Sodium (Colace) 100 mg EVERY 12 HOURS ORAL 01/22/20 21:00 02/21/20 20:59 01/26/20 08:51 Ertapenem 1 gm/ Sodium Chloride 55 ml @ 110 mls/hr Q24H IVPB 01/26/20 18:00 01/31/20 17:59 Furosemide (Lasix) 40 mg EVERY 12 HOURS IV 01/25/20 14:30 02/24/20 14:29 01/25/20 21:03 Lidocaine (Lidoderm 5% PATCH) 1 patch DAILY TDERMAL 01/24/20 10:30 04/23/20 10:29 01/26/20 08:55 Magnesium Sulfate 100 ml @ 100 mls/hr Q1H IVPB 01/26/20 17:00 01/26/20 18:59 Ondansetron HCl (Zofran) 4 mg Q4H PRN IVP Nausea & Vomiting 01/23/20 17:30 02/22/20 17:29 01/23/20 17:40 Potassium Chloride 100 ml @ 50 mls/hr Q1H IVPB 01/26/20 12:00 01/26/20 15:59 01/26/20 15:12 Sodium Chloride 400 ml @ 100 mls/hr Q4H IV 01/26/20 11:45 01/26/20 15:44 01/26/20 12:31 Spironolactone (Aldactone) 25 mg DAILY ORAL 01/27/20 09:00 02/26/20 08:59 Trazodone HCl (Desyrel) 50 mg BEDTIME ORAL 01/25/20 21:00 02/24/20 20:59 01/25/20 21:03 Assessment/Plan Assessment/Plan IMPRESSION: 1. Right lung pneumonia. 2. Bilateral pleural effusions. 3. Atrial fibrillation. 4. Hypertension. DISCUSSION: Continue rate control as well as anticoagulation, broad-spectrum antibiotics. I will follow carefully. Saturating 96% on 2L/min O2 Josr Singh Omar Syed MD January 26, 2020 15:43
[2020-01-26 16:00] VITALS: BP 125/72
[2020-01-26] MEDS: Ertapenem 1 GM in NS 55 ML IVPB SCH (18:21)
[2020-01-26 20:00] VITALS: BP 112/69
--- NOTE | 2020-01-26 20:48 | Infectious Diseases Prog Note ---
Assessment/Plan Assessment/Plan ASSESSMENT/PLAN: 1. esbl e.coli uti, CAP, rule out covid-19 infection/pna - ertapenem started - agree - discontinue other abx - covid-19 pcr test neg x 1, f/u on second test - monitor labs and chest x-ray as indicated 2. Elevated creatinine, acute kidney injury. 3. Hypertension. 4. Blood pressure treatment per primary care team. 5. Atrial fibrillation with rapid ventricular response. 6. Effusions. 7. Elevated transaminases. 8. Continue treatment per primary consultants. 9. Orders were noted and entered. 10. No known drug allergies. 11. Social history negative. 12. Family history noncontributory. 13. MAR is noted. 14. Case discussed with primary team. Subjective Constitutional: Denies: fever Respiratory: Denies: shortness of breath Cardiovascular: Denies: chest pain Gastrointestinal/Abdominal: Denies: nausea, vomiting Genitourinary: Reports: other - no park Neurologic: Denies: headache Psychiatric: Denies: depression Hematologic: Denies: bleeding Musculoskeletal: Denies: pain Allergies: Coded Allergies: No Known Allergies (Unverified , 01/22/20) Objective Vital Signs Last 24 Hour Vital Signs Date Time Temp Pulse Resp B/P (MAP) Pulse Ox O2 Delivery O2 Flow Rate FiO2 01/26/20 19:23 89 18 97 Nasal Cannula 2.0 28 01/26/20 19:19 97 Nasal Cannula 2.0 28 01/26/20 16:00 102 01/26/20 16:00 96.6 87 18 125/72 (89) 97 01/26/20 12:00 96.1 93 20 107/70 (82) 98 01/26/20 12:00 89 01/26/20 09:00 Nasal Cannula 2.0 01/26/20 08:54 93 130/97 01/26/20 08:51 93 130/97 01/26/20 08:00 91 01/26/20 08:00 96.4 93 18 130/97 (108) 97 01/26/20 04:00 102 01/26/20 04:00 96.8 94 18 118/84 (95) 97 01/26/20 00:00 96.8 104 18 122/88 (99) 97 01/26/20 00:00 104 01/25/20 21:09 81 136/90 5/25/20 21:00 Nasal Cannula 2.0 01/25/20 20:50 97 Nasal Cannula 2.0 28 01/25/20 20:50 94 18 98 Nasal Cannula 2.0 28 Height (Feet): 5 Height (Inches): 0.00 Weight (Pounds): 108 General Appearance: no acute distress HEENT: normocephalic, atraumatic, anicteric, mucous membranes moist Respiratory/Chest: crackles/rales, rhonchi - bilaterally Cardiovascular: normal rate, regular rhythm, no gallop/murmur, no JVD Abdomen: normal bowel sounds, soft, non tender, no organomegaly, non distended Genitourinary: other - no park Extremities: no cyanosis Skin: no rash Neurologic/Psychiatric: account underwriter II-XII grossly normal, alert, responsive Lymphatic: no neck adenopathy Musculoskeletal: no effusion Objective Chest x-ray - 01/22/20 - Procedure: XRAY Chest 1v Procedure: XRAY Chest 1v Reason for study: Shortness of breath. Comparison films: None. FINDINGS: A single one view chest is obtained. There is mild to moderate vascular prominence. Right basilar infiltrate with small right effusion noted. There is cardiomegaly . The bony thorax appear unremarkable. IMPRESSION: Right basilar infiltrate and small effusion. Chest x-ray - 01/25/20 - Procedure: XRAY Chest 1v EXAM: XR Chest, 1 View CLINICAL HISTORY: INFECT TECHNIQUE: Frontal view of the chest. COMPARISON: January 22, 2020 FINDINGS: Enlarged cardiac silhouette with central vascular congestion. Low lung volumes. Right lower lobe infiltrate and effusion again noted, slightly worse. Likely left basilar atelectasis/infiltrate and small left effusion. IMPRESSION: Right greater than left bilateral lower lobe atelectasis/infiltrates and effusions. Enlarged cardiac silhouette with central vascular congestion. Microbiology Date/Time Source Procedure Growth Status 01/22/20 12:20 Nasopharynx Coronavirus COVID-19 PCR ([facility]) - Final Complete 01/22/20 14:48 Urine,Clean Catch Urine Culture - Final Escherichia Coli Escherichia Coli - Esbl Complete Laboratory Tests Test 01/26/20 05:00 White Blood Count 5.6 K/UL (4.8-10.8) Red Blood Count 4.15 M/UL (4.20-5.40) L Hemoglobin 13.3 G/DL (12.0-16.0) Hematocrit 38.1 % (37.0-47.0) Mean Corpuscular Volume 92 FL (80-99) Mean Corpuscular Hemoglobin 32.1 PG (27.0-31.0) H Mean Corpuscular Hemoglobin Concent 35.0 G/DL (32.0-36.0) Red Cell Distribution Width 16.2 % (11.6-14.8) H Platelet Count 143 K/UL (150-450) L Mean Platelet Volume 6.9 FL (6.5-10.1) Neutrophils (%) (Auto) 75.1 % (45.0-75.0) H Lymphocytes (%) (Auto) 16.4 % (20.0-45.0) L Monocytes (%) (Auto) 6.9 % (1.0-10.0) Eosinophils (%) (Auto) 1.0 % (0.0-3.0) Basophils (%) (Auto) 0.7 % (0.0-2.0) Sodium Level Pending Potassium Level Pending Chloride Level Pending Carbon Dioxide Level Pending Anion Gap 11 mmol/L (5-15) Blood Urea Nitrogen Pending Creatinine Pending Estimat Glomerular Filtration Rate Pending Glucose Level Pending Calcium Level Pending Phosphorus Level 3.1 MG/DL (2.5-4.9) Magnesium Level 1.7 MG/DL (1.8-2.4) L Total Bilirubin 0.7 MG/DL (0.2-1.0) Aspartate Amino Transf (AST/SGOT) 721 U/L (15-37) H Alanine Aminotransferase (ALT/SGPT) 883 U/L (12-78) H Alkaline Phosphatase 176 U/L (46-116) H Total Protein 5.8 G/DL (6.4-8.2) L Albumin 2.8 G/DL (3.4-5.0) L Globulin 3.0 g/dL Albumin/Globulin Ratio 0.9 (1.0-2.7) L Hepatitis A IgM Antibody Pending Hepatitis B Surface Antigen Pending Hepatitis B Core IgM Antibody Pending Hepatitis C Antibody Pending Current Medications Medications (Trade) Dose Ordered Sig/Thao Route PRN Reason Start Time Stop Time Status Last Admin Dose Admin Acetaminophen (Tylenol) 650 mg Q4H PRN ORAL Mild Pain (Pain Scale 1-3) 01/22/20 15:45 02/21/20 15:44 01/25/20 03:37 Al Hydroxide/Mg Hydroxide (Mylanta II) 30 ml Q6H PRN ORAL dyspepsia 01/22/20 15:45 02/21/20 15:44 01/25/20 03:38 Albuterol/ Ipratropium (Albuterol/ Ipratropium) 3 ml Q6H PRN HHN Shortness of Breath 01/22/20 15:45 01/27/20 15:44 Apixaban (Eliquis) 2.5 mg Q12HR ORAL 01/25/20 09:00 04/24/20 08:59 01/26/20 08:53 Carvedilol (Coreg) 12.5 mg EVERY 12 HOURS ORAL 01/26/20 21:00 02/25/20 20:59 Dextrose (Dextrose 50%) 25 ml Q30M PRN IV Hypoglycemia 01/22/20 15:45 04/21/20 15:44 Dextrose (Dextrose 50%) 50 ml Q30M PRN IV Hypoglycemia 01/22/20 15:45 04/21/20 15:44 Diphenhydramine HCl (Benadryl) 25 mg Q6H PRN ORAL Itching/Pruritis 01/22/20 15:45 02/21/20 15:44 01/25/20 03:35 Docusate Sodium (Colace) 100 mg EVERY 12 HOURS ORAL 01/22/20 21:00 02/21/20 20:59 01/26/20 08:51 Ertapenem 1 gm/ Sodium Chloride 55 ml @ 110 mls/hr Q24H IVPB 01/26/20 18:00 01/31/20 17:59 01/26/20 18:21 Furosemide (Lasix) 40 mg EVERY 12 HOURS IV 01/25/20 14:30 02/24/20 14:29 01/25/20 21:03 Lidocaine (Lidoderm 5% PATCH) 1 patch DAILY TDERMAL 01/24/20 10:30 04/23/20 10:29 01/26/20 08:55 Ondansetron HCl (Zofran) 4 mg Q4H PRN IVP Nausea & Vomiting 01/23/20 17:30 02/22/20 17:29 01/23/20 17:40 Spironolactone (Aldactone) 25 mg DAILY ORAL 01/27/20 09:00 02/26/20 08:59 Trazodone HCl (Desyrel) 50 mg BEDTIME ORAL 01/25/20 21:00 02/24/20 20:59 01/25/20 21:03 Rakan Yanez MD January 26, 2020 20:48
[2020-01-26] MEDS: TraZODone 50mg tab ORAL SCH (21:06)
[2020-01-26] MEDS: Carvedilol 12.5mg tab ORAL SCH (21:06)
[2020-01-27] VITALS: BP 125/82
[2020-01-27 04:00] VITALS: BP 132/76
[2020-01-27 07:12] LABS: BASOPHILS % (AUTO) 0.3 % (0.0-2.0); EOSINOPHILS % (AUTO) 0.8 % (0.0-3.0); HEMATOCRIT 37.7 % (37.0-47.0); HEMOGLOBIN 12.9 G/DL (12.0-16.0); LYMPHOCYTES % (AUTO) 16.2 % (20.0-45.0); MEAN CORPUSCULAR VOLUME 93 FL (80-99); MONOCYTES % (AUTO) 6.9 % (1.0-10.0); NEUTROPHILS % (AUTO) 75.9 % (45.0-75.0); PLATELET COUNT 141 K/UL (150-450); RED BLOOD COUNT 4.04 M/UL (4.20-5.40); RED CELL DISTRIBUTION WIDTH 16.8 % (11.6-14.8); WHITE BLOOD COUNT 6.6 K/UL (4.8-10.8)
[2020-01-27 07:15] LABS: PHOSPHORUS 2.8 MG/DL (2.5-4.9)
[2020-01-27 07:18] LABS: ALANINE AMINOTRANSFERASE 785 U/L (12-78); ALBUMIN 2.6 G/DL (3.4-5.0); ALBUMIN/GLOBULIN RATIO 0.9 (1.0-2.7); ALKALINE PHOSPHATASE 162 U/L (46-116); ANION GAP 8 mmol/L (5-15); ASPARTATE AMINO TRANSFERASE 480 U/L (15-37); BILIRUBIN,TOTAL 0.5 MG/DL (0.2-1.0); BLOOD UREA NITROGEN 25 mg/dL (7-18); CALCIUM 7.6 MG/DL (8.5-10.1); CARBON DIOXIDE 26 MMOL/L (21-32); CHLORIDE 102 MMOL/L (98-107); CREATININE 1.2 MG/DL (0.55-1.30); POTASSIUM 3.5 MMOL/L (3.5-5.1); SODIUM 136 MMOL/L (136-145)
[2020-01-27 08:00] VITALS: BP 134/96
--- NOTE | 2020-01-27 09:14 | General Progress Note ---
Assessment/Plan Problem List: (1) Transaminitis ICD Codes: R74.0 - Nonspecific elevation of levels of transaminase and lactic acid dehydrogenase [LDH] SNOMED: 605292364, 991068775 (2) Pneumonia ICD Codes: J18.9 - Pneumonia, unspecified organism SNOMED: 782050646 (3) Atrial fibrillation with RVR ICD Codes: I48.91 - Unspecified atrial fibrillation SNOMED: 434834271564096 Status: stable Assessment/Plan: elevated LFTS, ? abx related ceftriaxone has been Dc now and LFTS are improving abd us reviewed hepatitis panel neg repeat labs in am will fu Subjective ROS Limited/Unobtainable: No Allergies: Coded Allergies: No Known Allergies (Unverified , 01/22/20) Objective Last 24 Hour Vital Signs Date Time Temp Pulse Resp B/P (MAP) Pulse Ox O2 Delivery O2 Flow Rate FiO2 01/27/20 04:00 112 01/27/20 04:00 97.4 100 19 132/76 (94) 99 01/27/20 00:00 98.5 92 19 125/82 (96) 98 01/27/20 00:00 101 01/26/20 21:06 90 112/76 01/26/20 21:00 Nasal Cannula 2.0 01/26/20 20:00 96 01/26/20 20:00 97.3 81 18 112/69 (83) 98 01/26/20 19:23 89 18 97 Nasal Cannula 2.0 28 01/26/20 19:19 97 Nasal Cannula 2.0 28 01/26/20 16:00 102 01/26/20 16:00 96.6 87 18 125/72 (89) 97 01/26/20 12:00 96.1 93 20 107/70 (82) 98 01/26/20 12:00 89 Intake and Output 01/26/20 01/27/20 19:00 07:00 Intake Total 1525.0 ml Output Total 300 ml Balance 1225.0 ml Intake Oral 360 ml IV Total 1165.0 ml Output Urine Total 300 ml Laboratory Tests 01/27/20 05:20: White Blood Count 6.6, Red Blood Count 4.04L, Hemoglobin 12.9, Hematocrit 37.7, Mean Corpuscular Volume 93, Mean Corpuscular Hemoglobin 32.0H, Mean Corpuscular Hemoglobin Concent 34.3, Red Cell Distribution Width 16.8H, Platelet Count 141L , Mean Platelet Volume 6.0L, Neutrophils (%) (Auto) 75.9H, Lymphocytes (%) (Auto ) 16.2L, Monocytes (%) (Auto) 6.9, Eosinophils (%) (Auto) 0.8, Basophils (%) ( Auto) 0.3, Sodium Level 136, Potassium Level 3.5, Chloride Level 102, Carbon Dioxide Level 26, Anion Gap 8, Blood Urea Nitrogen 25H, Creatinine 1.2, Estimat Glomerular Filtration Rate 44.4, Glucose Level 110H, Calcium Level 7.6L, Phosphorus Level 2.8, Magnesium Level 2.0, Total Bilirubin 0.5, Aspartate Amino Transf (AST/SGOT) 480H, Alanine Aminotransferase (ALT/SGPT) 785H, Alkaline Phosphatase 162H, Total Protein 5.6L, Albumin 2.6L, Globulin 3.0, Albumin/ Globulin Ratio 0.9L Height (Feet): 5 Height (Inches): 0.00 Weight (Pounds): 101 General Appearance: no apparent distress EENT: normal ENT inspection Neck: supple Cardiovascular: normal rate Respiratory/Chest: decreased breath sounds Abdomen: normal bowel sounds, non tender, soft Extremities: non-tender Ish Benoit MD January 27, 2020 09:14
[2020-01-27] MEDS: Eliquis 2.5mg tablet ORAL SCH ×2 (09:50→20:56)
[2020-01-27] MEDS: Docusate 100mg cap ORAL SCH ×2 (09:50→20:56)
[2020-01-27] MEDS: Spironolactone 25mg tab ORAL SCH (09:50)
[2020-01-27] MEDS: Carvedilol 12.5mg tab ORAL SCH ×2 (09:51→20:56)
--- NOTE | 2020-01-27 10:46 | Nephrology Progress Note ---
Assessment/Plan Plan #ANDREA - likely pre-renal azotemia in the setting of renal hypoperfusion due to RVR and sepsis #Sepsis - r/o COVID #CHF- acute on chrobuc #Hypoxemic resp failure due to pneumonia - r/o COVID # Elevated LFTs #HTN #Afib #HLD - lasix 40 IV BID - continue ertapenem - replete mag and phos - GI consulted for elevated LFTs - trend LFTs - abd Us reviewed - monitor Cr and electrolytes - ID eval - pulm eval - antibiotics per ID - cardiology eval for afib RVR - continue apixaban 2.5mg BID - continue coreg - continue aldactrone 25mg daily - monitor bmp , mag and phos daily - avoid nephrotoxins - strict I&Os - daily weights Subjective ROS Limited/Unobtainable: No Subjective breathing stable mag and K low- repleted cr 1.2 EF 25% LFts noted GI consulted Abd US: IMPRESSION: 1. Moderate large left greater than right pleural effusions. 2. Trace ascites along the right liver. Objective Objective Last 24 Hour Vital Signs Date Time Temp Pulse Resp B/P (MAP) Pulse Ox O2 Delivery O2 Flow Rate FiO2 01/27/20 09:51 125 134/96 01/27/20 08:00 98.1 125 20 134/96 (109) 97 01/27/20 07:42 122 01/27/20 04:00 112 01/27/20 04:00 97.4 100 19 132/76 (94) 99 01/27/20 00:00 98.5 92 19 125/82 (96) 98 01/27/20 00:00 101 01/26/20 21:06 90 112/76 01/26/20 21:00 Nasal Cannula 2.0 01/26/20 20:00 96 01/26/20 20:00 97.3 81 18 112/69 (83) 98 01/26/20 19:23 89 18 97 Nasal Cannula 2.0 28 01/26/20 19:19 97 Nasal Cannula 2.0 28 01/26/20 16:00 102 01/26/20 16:00 96.6 87 18 125/72 (89) 97 01/26/20 12:00 96.1 93 20 107/70 (82) 98 01/26/20 12:00 89 Intake and Output 01/26/20 01/27/20 19:00 07:00 Intake Total 1525.0 ml Output Total 300 ml Balance 1225.0 ml Intake Oral 360 ml IV Total 1165.0 ml Output Urine Total 300 ml Laboratory Tests 01/27/20 05:20: White Blood Count 6.6, Red Blood Count 4.04L, Hemoglobin 12.9, Hematocrit 37.7, Mean Corpuscular Volume 93, Mean Corpuscular Hemoglobin 32.0H, Mean Corpuscular Hemoglobin Concent 34.3, Red Cell Distribution Width 16.8H, Platelet Count 141L , Mean Platelet Volume 6.0L, Neutrophils (%) (Auto) 75.9H, Lymphocytes (%) (Auto ) 16.2L, Monocytes (%) (Auto) 6.9, Eosinophils (%) (Auto) 0.8, Basophils (%) ( Auto) 0.3, Sodium Level 136, Potassium Level 3.5, Chloride Level 102, Carbon Dioxide Level 26, Anion Gap 8, Blood Urea Nitrogen 25H, Creatinine 1.2, Estimat Glomerular Filtration Rate 44.4, Glucose Level 110H, Calcium Level 7.6L, Phosphorus Level 2.8, Magnesium Level 2.0, Total Bilirubin 0.5, Aspartate Amino Transf (AST/SGOT) 480H, Alanine Aminotransferase (ALT/SGPT) 785H, Alkaline Phosphatase 162H, Total Protein 5.6L, Albumin 2.6L, Globulin 3.0, Albumin/ Globulin Ratio 0.9L Height (Feet): 5 Height (Inches): 0.00 Weight (Pounds): 101 Deo Crespo M.D. January 27, 2020 10:46
--- NOTE | 2020-01-27 11:02 | Pulmonology Progress Note ---
Subjective ROS Limited/Unobtainable: No Interval Events: None new Constitutional: Denies: fever HEENT: Repors: no symptoms Respiratory: Reports: no symptoms Cardiovascular: Reports: no symptoms Gastrointestinal/Abdominal: Denies: nausea, vomiting Psychiatric: Denies: depression Skin: Denies: rash Musculoskeletal: Denies: pain Allergies: Coded Allergies: No Known Allergies (Unverified , 01/22/20) Objective Last 24 Hour Vital Signs Date Time Temp Pulse Resp B/P (MAP) Pulse Ox O2 Delivery O2 Flow Rate FiO2 01/27/20 09:51 125 134/96 01/27/20 08:00 98.1 125 20 134/96 (109) 97 01/27/20 07:42 122 01/27/20 04:00 112 01/27/20 04:00 97.4 100 19 132/76 (94) 99 01/27/20 00:00 98.5 92 19 125/82 (96) 98 01/27/20 00:00 101 01/26/20 21:06 90 112/76 01/26/20 21:00 Nasal Cannula 2.0 01/26/20 20:00 96 01/26/20 20:00 97.3 81 18 112/69 (83) 98 01/26/20 19:23 89 18 97 Nasal Cannula 2.0 28 01/26/20 19:19 97 Nasal Cannula 2.0 28 01/26/20 16:00 102 01/26/20 16:00 96.6 87 18 125/72 (89) 97 01/26/20 12:00 96.1 93 20 107/70 (82) 98 01/26/20 12:00 89 Intake and Output 01/26/20 01/27/20 19:00 07:00 Intake Total 1525.0 ml Output Total 300 ml Balance 1225.0 ml Intake Oral 360 ml IV Total 1165.0 ml Output Urine Total 300 ml General Appearance: no acute distress HEENT: normocephalic Respiratory: chest wall non-tender, decreased breath sounds Cardiovascular: normal peripheral pulses Abdomen: normal bowel sounds Extremities: no cyanosis Laboratory Tests 01/27/20 05:20: White Blood Count 6.6, Red Blood Count 4.04L, Hemoglobin 12.9, Hematocrit 37.7, Mean Corpuscular Volume 93, Mean Corpuscular Hemoglobin 32.0H, Mean Corpuscular Hemoglobin Concent 34.3, Red Cell Distribution Width 16.8H, Platelet Count 141L , Mean Platelet Volume 6.0L, Neutrophils (%) (Auto) 75.9H, Lymphocytes (%) (Auto ) 16.2L, Monocytes (%) (Auto) 6.9, Eosinophils (%) (Auto) 0.8, Basophils (%) ( Auto) 0.3, Sodium Level 136, Potassium Level 3.5, Chloride Level 102, Carbon Dioxide Level 26, Anion Gap 8, Blood Urea Nitrogen 25H, Creatinine 1.2, Estimat Glomerular Filtration Rate 44.4, Glucose Level 110H, Calcium Level 7.6L, Phosphorus Level 2.8, Magnesium Level 2.0, Total Bilirubin 0.5, Aspartate Amino Transf (AST/SGOT) 480H, Alanine Aminotransferase (ALT/SGPT) 785H, Alkaline Phosphatase 162H, Total Protein 5.6L, Albumin 2.6L, Globulin 3.0, Albumin/ Globulin Ratio 0.9L Current Medications Medications (Trade) Dose Ordered Sig/Thao Route PRN Reason Start Time Stop Time Status Last Admin Dose Admin Acetaminophen (Tylenol) 650 mg Q4H PRN ORAL Mild Pain (Pain Scale 1-3) 01/22/20 15:45 02/21/20 15:44 01/25/20 03:37 Al Hydroxide/Mg Hydroxide (Mylanta II) 30 ml Q6H PRN ORAL dyspepsia 01/22/20 15:45 02/21/20 15:44 01/25/20 03:38 Albuterol/ Ipratropium (Albuterol/ Ipratropium) 3 ml Q6H PRN HHN Shortness of Breath 01/22/20 15:45 01/27/20 15:44 Apixaban (Eliquis) 2.5 mg Q12HR ORAL 01/25/20 09:00 04/24/20 08:59 01/27/20 09:50 Carvedilol (Coreg) 12.5 mg EVERY 12 HOURS ORAL 01/26/20 21:00 02/25/20 20:59 01/27/20 09:51 Dextrose (Dextrose 50%) 25 ml Q30M PRN IV Hypoglycemia 01/22/20 15:45 04/21/20 15:44 Dextrose (Dextrose 50%) 50 ml Q30M PRN IV Hypoglycemia 01/22/20 15:45 04/21/20 15:44 Diphenhydramine HCl (Benadryl) 25 mg Q6H PRN ORAL Itching/Pruritis 01/22/20 15:45 02/21/20 15:44 01/25/20 03:35 Docusate Sodium (Colace) 100 mg EVERY 12 HOURS ORAL 01/22/20 21:00 02/21/20 20:59 01/27/20 09:50 Ertapenem 1 gm/ Sodium Chloride 55 ml @ 110 mls/hr Q24H IVPB 01/26/20 18:00 01/31/20 17:59 01/26/20 18:21 Furosemide (Lasix) 40 mg EVERY 12 HOURS IV 01/25/20 14:30 02/24/20 14:29 01/27/20 09:50 Lidocaine (Lidoderm 5% PATCH) 1 patch DAILY TDERMAL 01/24/20 10:30 04/23/20 10:29 01/27/20 09:51 Ondansetron HCl (Zofran) 4 mg Q4H PRN IVP Nausea & Vomiting 01/23/20 17:30 02/22/20 17:29 01/23/20 17:40 Spironolactone (Aldactone) 25 mg DAILY ORAL 01/27/20 09:00 02/26/20 08:59 01/27/20 09:50 Trazodone HCl (Desyrel) 50 mg BEDTIME ORAL 01/25/20 21:00 02/24/20 20:59 01/26/20 21:06 Assessment/Plan Assessment/Plan IMPRESSION: 1. Right lung pneumonia. 2. Bilateral pleural effusions. 3. Atrial fibrillation. 4. Hypertension. DISCUSSION: Continue rate control as well as anticoagulation, broad-spectrum antibiotics. I will follow carefully. Saturating 96% on 2L/min O2 Josr Singh Omar Syed MD January 27, 2020 11:02
[2020-01-27 12:00] VITALS: BP 127/70
--- NOTE | 2020-01-27 15:59 | Internal Med Progress Note ---
Subjective Date of Service: January 27, 2020 Physician Name Cindi Velázquez Attending Physician Deo Crespo M.D. Current Medications Medications (Trade) Dose Ordered Sig/Thao Route PRN Reason Start Time Stop Time Status Last Admin Dose Admin Acetaminophen (Tylenol) 650 mg Q4H PRN ORAL Mild Pain (Pain Scale 1-3) 01/22/20 15:45 02/21/20 15:44 01/25/20 03:37 Al Hydroxide/Mg Hydroxide (Mylanta II) 30 ml Q6H PRN ORAL dyspepsia 01/22/20 15:45 02/21/20 15:44 01/25/20 03:38 Apixaban (Eliquis) 2.5 mg Q12HR ORAL 01/25/20 09:00 04/24/20 08:59 01/27/20 09:50 Carvedilol (Coreg) 12.5 mg EVERY 12 HOURS ORAL 01/26/20 21:00 02/25/20 20:59 01/27/20 09:51 Dextrose (Dextrose 50%) 25 ml Q30M PRN IV Hypoglycemia 01/22/20 15:45 04/21/20 15:44 Dextrose (Dextrose 50%) 50 ml Q30M PRN IV Hypoglycemia 01/22/20 15:45 04/21/20 15:44 Diphenhydramine HCl (Benadryl) 25 mg Q6H PRN ORAL Itching/Pruritis 01/22/20 15:45 02/21/20 15:44 01/25/20 03:35 Docusate Sodium (Colace) 100 mg EVERY 12 HOURS ORAL 01/22/20 21:00 02/21/20 20:59 01/27/20 09:50 Ertapenem 1 gm/ Sodium Chloride 55 ml @ 110 mls/hr Q24H IVPB 01/26/20 18:00 01/31/20 17:59 01/26/20 18:21 Furosemide (Lasix) 40 mg EVERY 12 HOURS IV 01/25/20 14:30 02/24/20 14:29 01/27/20 09:50 Lidocaine (Lidoderm 5% PATCH) 1 patch DAILY TDERMAL 01/24/20 10:30 04/23/20 10:29 01/27/20 09:51 Ondansetron HCl (Zofran) 4 mg Q4H PRN IVP Nausea & Vomiting 01/23/20 17:30 02/22/20 17:29 01/23/20 17:40 Spironolactone (Aldactone) 25 mg DAILY ORAL 01/27/20 09:00 02/26/20 08:59 01/27/20 09:50 Trazodone HCl (Desyrel) 50 mg BEDTIME ORAL 01/25/20 21:00 02/24/20 20:59 01/26/20 21:06 Allergies: Coded Allergies: No Known Allergies (Unverified , 01/22/20) Subjective Patient appears to be overall improving since being on diuretics; Will continue and monitor Liver enzymes which are trending down. Objective Last Vital Signs Date Time Temp Pulse Resp B/P (MAP) Pulse Ox O2 Delivery O2 Flow Rate FiO2 01/27/20 12:00 98.0 105 20 127/70 (89) 96 01/27/20 09:00 Nasal Cannula 2.0 01/26/20 19:23 28 Laboratory Tests Test 01/27/20 05:20 White Blood Count 6.6 K/UL (4.8-10.8) Red Blood Count 4.04 M/UL (4.20-5.40) L Hemoglobin 12.9 G/DL (12.0-16.0) Hematocrit 37.7 % (37.0-47.0) Mean Corpuscular Volume 93 FL (80-99) Mean Corpuscular Hemoglobin 32.0 PG (27.0-31.0) H Mean Corpuscular Hemoglobin Concent 34.3 G/DL (32.0-36.0) Red Cell Distribution Width 16.8 % (11.6-14.8) H Platelet Count 141 K/UL (150-450) L Mean Platelet Volume 6.0 FL (6.5-10.1) L Neutrophils (%) (Auto) 75.9 % (45.0-75.0) H Lymphocytes (%) (Auto) 16.2 % (20.0-45.0) L Monocytes (%) (Auto) 6.9 % (1.0-10.0) Eosinophils (%) (Auto) 0.8 % (0.0-3.0) Basophils (%) (Auto) 0.3 % (0.0-2.0) Sodium Level 136 MMOL/L (136-145) Potassium Level 3.5 MMOL/L (3.5-5.1) Chloride Level 102 MMOL/L (98-107) Carbon Dioxide Level 26 MMOL/L (21-32) Anion Gap 8 mmol/L (5-15) Blood Urea Nitrogen 25 mg/dL (7-18) H Creatinine 1.2 MG/DL (0.55-1.30) Estimat Glomerular Filtration Rate 44.4 mL/min (>60) Glucose Level 110 MG/DL (74-106) H Calcium Level 7.6 MG/DL (8.5-10.1) L Phosphorus Level 2.8 MG/DL (2.5-4.9) Magnesium Level 2.0 MG/DL (1.8-2.4) Total Bilirubin 0.5 MG/DL (0.2-1.0) Aspartate Amino Transf (AST/SGOT) 480 U/L (15-37) H Alanine Aminotransferase (ALT/SGPT) 785 U/L (12-78) H Alkaline Phosphatase 162 U/L (46-116) H Total Protein 5.6 G/DL (6.4-8.2) L Albumin 2.6 G/DL (3.4-5.0) L Globulin 3.0 g/dL Albumin/Globulin Ratio 0.9 (1.0-2.7) L Intake and Output 01/26/20 01/27/20 19:00 07:00 Intake Total 1525.0 ml Output Total 300 ml Balance 1225.0 ml Intake Oral 360 ml IV Total 1165.0 ml Output Urine Total 300 ml Objective General Appearance: WD/WN, no apparent distress Cardiovascular: regularly irregular, BL LE Edema Respiratory/Chest: normal breath sounds, no respiratory distress Abdomen: normal bowel sounds Neurologic: delivery rn II-XII grossly normal, oriented x 3 Assessment/Plan Assessment/Plan Assessment #Afib RVR, on home atenolol and amiodarone, both are being held #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%, severe valvular abnormalities, PHTN #COVID vs CAP ; CXR w/ BL effusion and RLL infiltrate, CT chest confirms; preliminary COVID test negative #ESBL UTI #Metabolic Acidosis #ANDREA vs CKD #Transaminitis--> Likely congestive hepatopathy, but will rule out COVID * 2, Abd US WNL Plan Consultants include nephro, ID, pulm, Cardo Lasix 40mg IV BID , Aldactone, Coreg BID Elaquis BID Metoprolol --> consider transitioning to Coreg Add Ertapenem for UTI Trend liver enzymes, pending COVID predictive markers ( LDH, Ferritin, Ddimer, CRP)--> initial COVID negative, pending repeat Cardiac Diet 01/23: Will obtain abdominal US given liver enzymes although suspect from COVID; obtain lactic acid given metabolic acidosis, and also echo. 01/24: Recommend repeat COVID; pending Abd US . Lasix initiated 01/25: Pending repeat COVID, transition to Ertapenem, continue Diuresis, Replete potassium 01/26: Patient improving w/ diuretics Cindi Velázquez D.O. January 27, 2020 15:59
[2020-01-27 16:00] VITALS: BP 126/83
[2020-01-27] MEDS: Ertapenem 1 GM in NS 55 ML IVPB SCH (17:30)
[2020-01-27 20:00] VITALS: BP_SYST 117; BP_SYST 133; BP_DIAS 91; BP_DIAS 96
[2020-01-27] MEDS: TraZODone 50mg tab ORAL SCH (20:56)
--- NOTE | 2020-01-27 21:28 | Cardiology Progress Note ---
Assessment/Plan Status: stable Assessment/Plan Assessment/Plan Status: stable Assessment/Plan: ASSESSMENT: Atrial fibrillation Hypertension Pleural effusion ANDREA UTI HLD Respiratory failure Elevated livery function tests Elevated CRP Systolic heart failure Severe pulmonary hypertension PLAN: -Increased coreg to 25 mg BID -LIFE VEST for arrhythmias protection -Anticoagulation with Eliquis for AFIB and possible LV thrombus -D/c Amiodarone re elevated LFT -D/c norvasc -Continue losartan for afterload reduction and BP control -Echocardiogram reviewed with severe PAH and Systolic dysfunction -Will need ischemia evaluation when stable - will arrange as outpatient -No indication for cardioversion, patient hemodynamically stable -Outpatient EP consult for AFIB Ablation and possible ICD -Maintain lasix for diuresis -Continue aldactone 25 mg -Replete electrolytes -Will arrange ENTRESTO as outpatient , will need to d/c losartan -Poor prognosis from cardiac standpoint Subjective Cardiovascular: Reports: no symptoms Respiratory: Reports: no symptoms Gastrointestinal/Abdominal: Reports: no symptoms Subjective No acute events, TTE with severe systolic dysfunction possible LV thrombus, severe PAH and moderate TR LFT rising - congestive liver? Rates controlled 100s dose of coreg increased to 25 mg BID Responding to diuresis and stable on room air Objective Last 24 Hour Vital Signs Date Time Temp Pulse Resp B/P (MAP) Pulse Ox O2 Delivery O2 Flow Rate FiO2 01/27/20 20:56 106 133/96 01/27/20 16:00 110 01/27/20 16:00 97.9 109 20 126/83 (97) 95 01/27/20 12:00 98.0 105 20 127/70 (89) 96 01/27/20 11:54 95 01/27/20 09:51 125 134/96 01/27/20 09:00 Nasal Cannula 2.0 01/27/20 08:00 98.1 125 20 134/96 (109) 97 01/27/20 07:42 122 01/27/20 04:00 112 01/27/20 04:00 97.4 100 19 132/76 (94) 99 01/27/20 00:00 98.5 92 19 125/82 (96) 98 01/27/20 00:00 101 General Appearance: no apparent distress, alert EENT: PERRL/EOMI, normal ENT inspection, TMs normal, pharynx normal Neck: normal alignment, supple, normal inspection, JVD Rhythm: Afib Cardiovascular: tachycardia, systolic murmur, arrhythmia, irregularly irregular Respiratory/Chest: no respiratory distress, no accessory muscle use, crackles/ rales Abdomen: non tender, soft, no mass, hepatomegaly Extremities: normal range of motion, non-tender, normal inspection, no calf tenderness, no swelling Neurologic: district resource officer II-XII grossly normal, no motor/sensory deficits Intake and Output 01/26/20 01/27/20 19:00 07:00 Intake Total 1525.0 ml Output Total 300 ml Balance 1225.0 ml Intake Oral 360 ml IV Total 1165.0 ml Output Urine Total 300 ml Laboratory Tests Test 01/27/20 05:20 White Blood Count 6.6 K/UL (4.8-10.8) Red Blood Count 4.04 M/UL (4.20-5.40) L Hemoglobin 12.9 G/DL (12.0-16.0) Hematocrit 37.7 % (37.0-47.0) Mean Corpuscular Volume 93 FL (80-99) Mean Corpuscular Hemoglobin 32.0 PG (27.0-31.0) H Mean Corpuscular Hemoglobin Concent 34.3 G/DL (32.0-36.0) Red Cell Distribution Width 16.8 % (11.6-14.8) H Platelet Count 141 K/UL (150-450) L Mean Platelet Volume 6.0 FL (6.5-10.1) L Neutrophils (%) (Auto) 75.9 % (45.0-75.0) H Lymphocytes (%) (Auto) 16.2 % (20.0-45.0) L Monocytes (%) (Auto) 6.9 % (1.0-10.0) Eosinophils (%) (Auto) 0.8 % (0.0-3.0) Basophils (%) (Auto) 0.3 % (0.0-2.0) Sodium Level 136 MMOL/L (136-145) Potassium Level 3.5 MMOL/L (3.5-5.1) Chloride Level 102 MMOL/L (98-107) Carbon Dioxide Level 26 MMOL/L (21-32) Anion Gap 8 mmol/L (5-15) Blood Urea Nitrogen 25 mg/dL (7-18) H Creatinine 1.2 MG/DL (0.55-1.30) Estimat Glomerular Filtration Rate 44.4 mL/min (>60) Glucose Level 110 MG/DL (74-106) H Calcium Level 7.6 MG/DL (8.5-10.1) L Phosphorus Level 2.8 MG/DL (2.5-4.9) Magnesium Level 2.0 MG/DL (1.8-2.4) Total Bilirubin 0.5 MG/DL (0.2-1.0) Aspartate Amino Transf (AST/SGOT) 480 U/L (15-37) H Alanine Aminotransferase (ALT/SGPT) 785 U/L (12-78) H Alkaline Phosphatase 162 U/L (46-116) H Total Protein 5.6 G/DL (6.4-8.2) L Albumin 2.6 G/DL (3.4-5.0) L Globulin 3.0 g/dL Albumin/Globulin Ratio 0.9 (1.0-2.7) L Butch Brunson MD January 27, 2020 21:28
[2020-01-28] VITALS: BP 117/91
[2020-01-28 04:00] VITALS: BP 132/80
[2020-01-28 07:27] LABS: ALANINE AMINOTRANSFERASE 659 U/L (12-78); ALBUMIN 2.8 G/DL (3.4-5.0); ALBUMIN/GLOBULIN RATIO 0.9 (1.0-2.7); ALKALINE PHOSPHATASE 153 U/L (46-116); ANION GAP 8 mmol/L (5-15); ASPARTATE AMINO TRANSFERASE 281 U/L (15-37); BILIRUBIN,TOTAL 0.7 MG/DL (0.2-1.0); BLOOD UREA NITROGEN 24 mg/dL (7-18); CALCIUM 7.9 MG/DL (8.5-10.1); CARBON DIOXIDE 28 MMOL/L (21-32); CHLORIDE 103 MMOL/L (98-107); CREATININE 1.2 MG/DL (0.55-1.30); PHOSPHORUS 3.2 MG/DL (2.5-4.9); POTASSIUM 3.9 MMOL/L (3.5-5.1); SODIUM 139 MMOL/L (136-145)
[2020-01-28 07:29] LABS: BASOPHILS % (AUTO) 0.7 % (0.0-2.0); EOSINOPHILS % (AUTO) 1.4 % (0.0-3.0); HEMATOCRIT 37.5 % (37.0-47.0); HEMOGLOBIN 13.1 G/DL (12.0-16.0); LYMPHOCYTES % (AUTO) 21.7 % (20.0-45.0); MEAN CORPUSCULAR VOLUME 92 FL (80-99); MONOCYTES % (AUTO) 8.5 % (1.0-10.0); NEUTROPHILS % (AUTO) 67.7 % (45.0-75.0); PLATELET COUNT 136 K/UL (150-450); RED CELL DISTRIBUTION WIDTH 16.4 % (11.6-14.8)
[2020-01-28 08:00] VITALS: BP 134/84
[2020-01-28] MEDS: Docusate 100mg cap ORAL SCH ×2 (08:49→20:46)
[2020-01-28] MEDS: Carvedilol 25mg Tab ORAL SCH ×2 (08:50→20:47)
[2020-01-28] MEDS: Spironolactone 25mg tab ORAL SCH (08:50)
[2020-01-28] MEDS: Eliquis 2.5mg tablet ORAL SCH ×2 (08:50→20:47)
--- NOTE | 2020-01-28 09:43 | General Progress Note ---
Assessment/Plan Problem List: (1) Transaminitis ICD Codes: R74.0 - Nonspecific elevation of levels of transaminase and lactic acid dehydrogenase [LDH] SNOMED: 833273513, 629533619 (2) Pneumonia ICD Codes: J18.9 - Pneumonia, unspecified organism SNOMED: 438702080 (3) Atrial fibrillation with RVR ICD Codes: I48.91 - Unspecified atrial fibrillation SNOMED: 569946083179000 Status: stable Assessment/Plan: elevated LFTS, ? abx related ceftriaxone has been Dc now and LFTS are improving abd us reviewed hepatitis panel neg repeat labs in am will fu Subjective ROS Limited/Unobtainable: No Allergies: Coded Allergies: No Known Allergies (Unverified , 01/22/20) Objective Last 24 Hour Vital Signs Date Time Temp Pulse Resp B/P (MAP) Pulse Ox O2 Delivery O2 Flow Rate FiO2 01/28/20 08:50 108 134/84 01/28/20 08:00 97.9 108 20 134/84 (101) 94 01/28/20 07:40 112 01/28/20 04:00 97.7 87 19 132/80 (97) 98 01/28/20 04:00 101 01/28/20 00:00 99 01/28/20 00:00 98.8 62 20 117/91 (100) 97 01/27/20 21:00 Nasal Cannula 2.0 01/27/20 20:56 106 133/96 01/27/20 20:11 95 18 97 Nasal Cannula 2.0 28 01/27/20 20:11 97 Nasal Cannula 2.0 28 01/27/20 20:00 120 01/27/20 20:00 98.1 106 18 133/96 (108) 93 01/27/20 16:00 110 01/27/20 16:00 97.9 109 20 126/83 (97) 95 01/27/20 12:00 98.0 105 20 127/70 (89) 96 01/27/20 11:54 95 01/27/20 09:51 125 134/96 Intake and Output 01/27/20 01/28/20 19:00 07:00 Intake Total 455 ml 360 ml Balance 455 ml 360 ml Intake Oral 400 ml IV Total 55 ml Other 360 ml # Voids 4 2 # Bowel Movements 1 Laboratory Tests 5/28/20 06:20: White Blood Count 6.0, Red Blood Count 4.10L, Hemoglobin 13.1, Hematocrit 37.5, Mean Corpuscular Volume 92, Mean Corpuscular Hemoglobin 32.0H, Mean Corpuscular Hemoglobin Concent 35.0, Red Cell Distribution Width 16.4H, Platelet Count 136L , Mean Platelet Volume 6.2L, Neutrophils (%) (Auto) 67.7, Lymphocytes (%) (Auto ) 21.7, Monocytes (%) (Auto) 8.5, Eosinophils (%) (Auto) 1.4, Basophils (%) ( Auto) 0.7, Sodium Level 139, Potassium Level 3.9, Chloride Level 103, Carbon Dioxide Level 28, Anion Gap 8, Blood Urea Nitrogen 24H, Creatinine 1.2, Estimat Glomerular Filtration Rate 44.4, Glucose Level 99, Calcium Level 7.9L, Phosphorus Level 3.2, Magnesium Level 1.8, Total Bilirubin 0.7, Aspartate Amino Transf (AST/SGOT) 281H, Alanine Aminotransferase (ALT/SGPT) 659H, Alkaline Phosphatase 153H, Total Protein 5.9L, Albumin 2.8L, Globulin 3.1, Albumin/ Globulin Ratio 0.9L Height (Feet): 5 Height (Inches): 0.00 Weight (Pounds): 113 General Appearance: no apparent distress EENT: normal ENT inspection Neck: supple Cardiovascular: normal rate Respiratory/Chest: decreased breath sounds Abdomen: normal bowel sounds, non tender, soft Extremities: non-tender Ish Benoit MD January 28, 2020 09:43
--- NOTE | 2020-01-28 10:53 | Nephrology Progress Note ---
Assessment/Plan Plan #ANDREA - likely pre-renal azotemia in the setting of renal hypoperfusion due to RVR and sepsis #Sepsis - r/o COVID #CHF- acute on chrobuc #Hypoxemic resp failure due to pneumonia - r/o COVID # Elevated LFTs #HTN #Afib #HLD - lasix 40 IV BID - continue ertapenem - replete mag and phos - GI consulted for elevated LFTs - trend LFTs - abd Us reviewed - monitor Cr and electrolytes - ID eval - pulm eval - antibiotics per ID - cardiology eval for afib RVR - continue apixaban 2.5mg BID - continue coreg - continue aldactrone 25mg daily - monitor bmp , mag and phos daily - avoid nephrotoxins - strict I&Os - daily weights Subjective Subjective breathing stable mag and K low- repleted cr 1.2 EF 25% LFts noted GI consulted Abd US: IMPRESSION: 1. Moderate large left greater than right pleural effusions. 2. Trace ascites along the right liver. Objective Objective Last 24 Hour Vital Signs Date Time Temp Pulse Resp B/P (MAP) Pulse Ox O2 Delivery O2 Flow Rate FiO2 01/28/20 09:00 Nasal Cannula 2.0 01/28/20 08:50 108 134/84 01/28/20 08:00 97.9 108 20 134/84 (101) 94 01/28/20 07:40 112 01/28/20 04:00 97.7 87 19 132/80 (97) 98 01/28/20 04:00 101 01/28/20 00:00 99 01/28/20 00:00 98.8 62 20 117/91 (100) 97 01/27/20 21:00 Nasal Cannula 2.0 01/27/20 20:56 106 133/96 01/27/20 20:11 95 18 97 Nasal Cannula 2.0 28 01/27/20 20:11 97 Nasal Cannula 2.0 28 01/27/20 20:00 120 01/27/20 20:00 98.1 106 18 133/96 (108) 93 01/27/20 16:00 110 01/27/20 16:00 97.9 109 20 126/83 (97) 95 01/27/20 12:00 98.0 105 20 127/70 (89) 96 5/27/20 11:54 95 Intake and Output 01/27/20 01/28/20 19:00 07:00 Intake Total 455 ml 360 ml Balance 455 ml 360 ml Intake Oral 400 ml IV Total 55 ml Other 360 ml # Voids 4 2 # Bowel Movements 1 Laboratory Tests 01/28/20 06:20: White Blood Count 6.0, Red Blood Count 4.10L, Hemoglobin 13.1, Hematocrit 37.5, Mean Corpuscular Volume 92, Mean Corpuscular Hemoglobin 32.0H, Mean Corpuscular Hemoglobin Concent 35.0, Red Cell Distribution Width 16.4H, Platelet Count 136L , Mean Platelet Volume 6.2L, Neutrophils (%) (Auto) 67.7, Lymphocytes (%) (Auto ) 21.7, Monocytes (%) (Auto) 8.5, Eosinophils (%) (Auto) 1.4, Basophils (%) ( Auto) 0.7, Sodium Level 139, Potassium Level 3.9, Chloride Level 103, Carbon Dioxide Level 28, Anion Gap 8, Blood Urea Nitrogen 24H, Creatinine 1.2, Estimat Glomerular Filtration Rate 44.4, Glucose Level 99, Calcium Level 7.9L, Phosphorus Level 3.2, Magnesium Level 1.8, Total Bilirubin 0.7, Aspartate Amino Transf (AST/SGOT) 281H, Alanine Aminotransferase (ALT/SGPT) 659H, Alkaline Phosphatase 153H, Total Protein 5.9L, Albumin 2.8L, Globulin 3.1, Albumin/ Globulin Ratio 0.9L Height (Feet): 5 Height (Inches): 0.00 Weight (Pounds): 113 Deo Crespo M.D. January 28, 2020 10:53
--- NOTE | 2020-01-28 11:11 | Internal Med Progress Note ---
Subjective Date of Service: January 28, 2020 Physician Name Cindi Velázquez Attending Physician Deo Crespo M.D. Current Medications Medications (Trade) Dose Ordered Sig/Thao Route PRN Reason Start Time Stop Time Status Last Admin Dose Admin Acetaminophen (Tylenol) 650 mg Q4H PRN ORAL Mild Pain (Pain Scale 1-3) 01/22/20 15:45 02/21/20 15:44 01/25/20 03:37 Al Hydroxide/Mg Hydroxide (Mylanta II) 30 ml Q6H PRN ORAL dyspepsia 01/22/20 15:45 02/21/20 15:44 01/25/20 03:38 Apixaban (Eliquis) 2.5 mg Q12HR ORAL 01/25/20 09:00 04/24/20 08:59 01/28/20 08:50 Carvedilol (Coreg) 25 mg EVERY 12 HOURS ORAL 01/28/20 09:00 02/25/20 20:59 01/28/20 08:50 Dextrose (Dextrose 50%) 25 ml Q30M PRN IV Hypoglycemia 01/22/20 15:45 04/21/20 15:44 Dextrose (Dextrose 50%) 50 ml Q30M PRN IV Hypoglycemia 01/22/20 15:45 04/21/20 15:44 Diphenhydramine HCl (Benadryl) 25 mg Q6H PRN ORAL Itching/Pruritis 01/22/20 15:45 02/21/20 15:44 01/25/20 03:35 Docusate Sodium (Colace) 100 mg EVERY 12 HOURS ORAL 01/22/20 21:00 02/21/20 20:59 01/28/20 08:49 Ertapenem 1 gm/ Sodium Chloride 55 ml @ 110 mls/hr Q24H IVPB 01/26/20 18:00 01/31/20 17:59 01/27/20 17:30 Furosemide (Lasix) 40 mg EVERY 12 HOURS IV 01/25/20 14:30 02/24/20 14:29 01/28/20 08:50 Lidocaine (Lidoderm 5% PATCH) 1 patch DAILY TDERMAL 01/24/20 10:30 04/23/20 10:29 01/28/20 08:50 Ondansetron HCl (Zofran) 4 mg Q4H PRN IVP Nausea & Vomiting 01/23/20 17:30 02/22/20 17:29 01/23/20 17:40 Spironolactone (Aldactone) 25 mg DAILY ORAL 01/27/20 09:00 02/26/20 08:59 01/28/20 08:50 Trazodone HCl (Desyrel) 50 mg BEDTIME ORAL 01/25/20 21:00 02/24/20 20:59 01/27/20 20:56 Allergies: Coded Allergies: No Known Allergies (Unverified , 01/22/20) Subjective Patient appears to be overall improving since being on diuretics; Will continue and monitor Liver enzymes which are trending down. Continue Ertapenem. F/U with Cardio regarding life vest arrangements. Patient pleasant, and in no acute distress. Awaiting second COVID Objective Last Vital Signs Date Time Temp Pulse Resp B/P (MAP) Pulse Ox O2 Delivery O2 Flow Rate FiO2 01/28/20 09:00 Nasal Cannula 2.0 01/28/20 08:50 108 134/84 01/28/20 08:00 97.9 20 94 01/27/20 20:11 28 Laboratory Tests Test 01/28/20 06:20 White Blood Count 6.0 K/UL (4.8-10.8) Red Blood Count 4.10 M/UL (4.20-5.40) L Hemoglobin 13.1 G/DL (12.0-16.0) Hematocrit 37.5 % (37.0-47.0) Mean Corpuscular Volume 92 FL (80-99) Mean Corpuscular Hemoglobin 32.0 PG (27.0-31.0) H Mean Corpuscular Hemoglobin Concent 35.0 G/DL (32.0-36.0) Red Cell Distribution Width 16.4 % (11.6-14.8) H Platelet Count 136 K/UL (150-450) L Mean Platelet Volume 6.2 FL (6.5-10.1) L Neutrophils (%) (Auto) 67.7 % (45.0-75.0) Lymphocytes (%) (Auto) 21.7 % (20.0-45.0) Monocytes (%) (Auto) 8.5 % (1.0-10.0) Eosinophils (%) (Auto) 1.4 % (0.0-3.0) Basophils (%) (Auto) 0.7 % (0.0-2.0) Sodium Level 139 MMOL/L (136-145) Potassium Level 3.9 MMOL/L (3.5-5.1) Chloride Level 103 MMOL/L (98-107) Carbon Dioxide Level 28 MMOL/L (21-32) Anion Gap 8 mmol/L (5-15) Blood Urea Nitrogen 24 mg/dL (7-18) H Creatinine 1.2 MG/DL (0.55-1.30) Estimat Glomerular Filtration Rate 44.4 mL/min (>60) Glucose Level 99 MG/DL (74-106) Calcium Level 7.9 MG/DL (8.5-10.1) L Phosphorus Level 3.2 MG/DL (2.5-4.9) Magnesium Level 1.8 MG/DL (1.8-2.4) Total Bilirubin 0.7 MG/DL (0.2-1.0) Aspartate Amino Transf (AST/SGOT) 281 U/L (15-37) H Alanine Aminotransferase (ALT/SGPT) 659 U/L (12-78) H Alkaline Phosphatase 153 U/L (46-116) H Total Protein 5.9 G/DL (6.4-8.2) L Albumin 2.8 G/DL (3.4-5.0) L Globulin 3.1 g/dL Albumin/Globulin Ratio 0.9 (1.0-2.7) L Microbiology Date/Time Source Procedure Growth Status 01/25/20 15:50 Nasopharynx Coronavirus COVID-19 PCR ([facility]) - Final Complete Intake and Output 01/27/20 01/28/20 19:00 07:00 Intake Total 455 ml 360 ml Balance 455 ml 360 ml Intake Oral 400 ml IV Total 55 ml Other 360 ml # Voids 4 2 # Bowel Movements 1 Objective General Appearance: WD/WN, no apparent distress Cardiovascular: regularly irregular, BL LE Edema Respiratory/Chest: normal breath sounds, no respiratory distress Abdomen: normal bowel sounds Neurologic: fan runner II-XII grossly normal, oriented x 3 Assessment/Plan Assessment/Plan Assessment #Afib RVR, on home atenolol and amiodarone, both are being held #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%, severe valvular abnormalities, PHTN #COVID vs CAP ; CXR w/ BL effusion and RLL infiltrate, CT chest confirms; preliminary COVID test negative #ESBL UTI #Metabolic Acidosis #ANDREA vs CKD #Transaminitis--> Likely congestive hepatopathy, but will rule out COVID * 2, Abd US WNL Plan Consultants include nephro, ID, pulm, Cardo Lasix 40mg IV BID , Aldactone, Coreg BID Transition to Elaquis per Cardio when available Elaquis BID Add Ertapenem for UTI Trend liver enzymes, pending COVID predictive markers ( LDH, Ferritin, Ddimer, CRP)--> initial COVID negative, pending repeat Cardiac Diet 01/23: Will obtain abdominal US given liver enzymes although suspect from COVID; obtain lactic acid given metabolic acidosis, and also echo. 01/24: Recommend repeat COVID; pending Abd US . Lasix initiated 01/25: Pending repeat COVID, transition to Ertapenem, continue Diuresis, Replete potassium 01/26: Patient improving w/ diuretics 01/27: continue present care, follow up regarding life Cindi Og D.O. January 28, 2020 11:11
[2020-01-28 12:00] VITALS: BP 116/81
[2020-01-28 16:00] VITALS: BP 121/71
[2020-01-28] MEDS: Ertapenem 1 GM in NS 55 ML IVPB SCH (17:19)
--- NOTE | 2020-01-28 19:22 | Infectious Diseases Prog Note ---
Assessment/Plan Assessment/Plan ASSESSMENT/PLAN: 1. esbl e.coli uti, ? CAP, rule out covid-19 infection/pna - pcr neg x 2 - ertapenem - day # 3 - can discharge on bactrim x 5 days soon - covid-19 pcr test neg x 2 - can remove isolation - monitor labs and chest x-ray as indicated 2. Elevated creatinine, acute kidney injury. 3. Hypertension. 4. Blood pressure treatment per primary care team. 5. Atrial fibrillation with rapid ventricular response. 6. Effusions. 7. Elevated transaminases. 8. Continue treatment per primary consultants. 9. Orders were noted and entered. 10. No known drug allergies. 11. Social history negative. 12. Family history noncontributory. 13. MAR is noted. 14. Case discussed with primary team. Subjective Constitutional: Denies: fever HEENT: Denies: congestion Respiratory: Denies: shortness of breath Cardiovascular: Denies: chest pain Gastrointestinal/Abdominal: Denies: nausea, vomiting, diarrhea Genitourinary: Reports: other - no park Neurologic: Denies: headache Psychiatric: Denies: depression Skin: Denies: rash Allergies: Coded Allergies: No Known Allergies (Unverified , 01/22/20) Objective Vital Signs Last 24 Hour Vital Signs Date Time Temp Pulse Resp B/P (MAP) Pulse Ox O2 Delivery O2 Flow Rate FiO2 01/28/20 16:02 93 01/28/20 16:00 98.0 74 20 121/71 (88) 98 01/28/20 12:00 98.0 100 20 116/81 (93) 98 01/28/20 11:33 95 01/28/20 09:00 Nasal Cannula 2.0 01/28/20 08:50 108 134/84 01/28/20 08:00 97.9 108 20 134/84 (101) 94 01/28/20 07:40 112 01/28/20 04:00 97.7 87 19 132/80 (97) 98 01/28/20 04:00 101 01/28/20 00:00 99 01/28/20 00:00 98.8 62 20 117/91 (100) 97 01/27/20 21:00 Nasal Cannula 2.0 01/27/20 20:56 106 133/96 01/27/20 20:11 95 18 97 Nasal Cannula 2.0 28 01/27/20 20:11 97 Nasal Cannula 2.0 28 01/27/20 20:00 120 01/27/20 20:00 98.1 106 18 133/96 (108) 93 Height (Feet): 5 Height (Inches): 0.00 Weight (Pounds): 113 General Appearance: no acute distress HEENT: normocephalic, atraumatic, anicteric, mucous membranes moist Respiratory/Chest: lungs clear, normal breath sounds, no respiratory distress, no accessory muscle use Cardiovascular: normal rate, regular rhythm, no gallop/murmur Abdomen: soft, non tender, no organomegaly, non distended Genitourinary: other - no park Extremities: no cyanosis Skin: no rash Objective Chest x-ray - 01/22/20 - Procedure: XRAY Chest 1v Procedure: XRAY Chest 1v Reason for study: Shortness of breath. Comparison films: None. FINDINGS: A single one view chest is obtained. There is mild to moderate vascular prominence. Right basilar infiltrate with small right effusion noted. There is cardiomegaly . The bony thorax appear unremarkable. IMPRESSION: Right basilar infiltrate and small effusion. Chest x-ray - 01/25/20 - Procedure: XRAY Chest 1v EXAM: XR Chest, 1 View CLINICAL HISTORY: INFECT TECHNIQUE: Frontal view of the chest. COMPARISON: January 22, 2020 FINDINGS: Enlarged cardiac silhouette with central vascular congestion. Low lung volumes. Right lower lobe infiltrate and effusion again noted, slightly worse. Likely left basilar atelectasis/infiltrate and small left effusion. IMPRESSION: Right greater than left bilateral lower lobe atelectasis/infiltrates and effusions. Enlarged cardiac silhouette with central vascular congestion. Laboratory Tests Test 01/28/20 06:20 White Blood Count 6.0 K/UL (4.8-10.8) Red Blood Count 4.10 M/UL (4.20-5.40) L Hemoglobin 13.1 G/DL (12.0-16.0) Hematocrit 37.5 % (37.0-47.0) Mean Corpuscular Volume 92 FL (80-99) Mean Corpuscular Hemoglobin 32.0 PG (27.0-31.0) H Mean Corpuscular Hemoglobin Concent 35.0 G/DL (32.0-36.0) Red Cell Distribution Width 16.4 % (11.6-14.8) H Platelet Count 136 K/UL (150-450) L Mean Platelet Volume 6.2 FL (6.5-10.1) L Neutrophils (%) (Auto) 67.7 % (45.0-75.0) Lymphocytes (%) (Auto) 21.7 % (20.0-45.0) Monocytes (%) (Auto) 8.5 % (1.0-10.0) Eosinophils (%) (Auto) 1.4 % (0.0-3.0) Basophils (%) (Auto) 0.7 % (0.0-2.0) Sodium Level 139 MMOL/L (136-145) Potassium Level 3.9 MMOL/L (3.5-5.1) Chloride Level 103 MMOL/L (98-107) Carbon Dioxide Level 28 MMOL/L (21-32) Anion Gap 8 mmol/L (5-15) Blood Urea Nitrogen 24 mg/dL (7-18) H Creatinine 1.2 MG/DL (0.55-1.30) Estimat Glomerular Filtration Rate 44.4 mL/min (>60) Glucose Level 99 MG/DL (74-106) Calcium Level 7.9 MG/DL (8.5-10.1) L Phosphorus Level 3.2 MG/DL (2.5-4.9) Magnesium Level 1.8 MG/DL (1.8-2.4) Total Bilirubin 0.7 MG/DL (0.2-1.0) Aspartate Amino Transf (AST/SGOT) 281 U/L (15-37) H Alanine Aminotransferase (ALT/SGPT) 659 U/L (12-78) H Alkaline Phosphatase 153 U/L (46-116) H Total Protein 5.9 G/DL (6.4-8.2) L Albumin 2.8 G/DL (3.4-5.0) L Globulin 3.1 g/dL Albumin/Globulin Ratio 0.9 (1.0-2.7) L Current Medications Medications (Trade) Dose Ordered Sig/Thao Route PRN Reason Start Time Stop Time Status Last Admin Dose Admin Acetaminophen (Tylenol) 650 mg Q4H PRN ORAL Mild Pain (Pain Scale 1-3) 01/22/20 15:45 02/21/20 15:44 01/25/20 03:37 Al Hydroxide/Mg Hydroxide (Mylanta II) 30 ml Q6H PRN ORAL dyspepsia 01/22/20 15:45 02/21/20 15:44 01/25/20 03:38 Apixaban (Eliquis) 2.5 mg Q12HR ORAL 01/25/20 09:00 04/24/20 08:59 01/28/20 08:50 Carvedilol (Coreg) 25 mg EVERY 12 HOURS ORAL 01/28/20 09:00 02/25/20 20:59 01/28/20 08:50 Dextrose (Dextrose 50%) 25 ml Q30M PRN IV Hypoglycemia 01/22/20 15:45 04/21/20 15:44 Dextrose (Dextrose 50%) 50 ml Q30M PRN IV Hypoglycemia 01/22/20 15:45 04/21/20 15:44 Diphenhydramine HCl (Benadryl) 25 mg Q6H PRN ORAL Itching/Pruritis 01/22/20 15:45 02/21/20 15:44 01/25/20 03:35 Docusate Sodium (Colace) 100 mg EVERY 12 HOURS ORAL 01/22/20 21:00 02/21/20 20:59 01/28/20 08:49 Ertapenem 1 gm/ Sodium Chloride 55 ml @ 110 mls/hr Q24H IVPB 01/26/20 18:00 01/31/20 17:59 01/28/20 17:19 Furosemide (Lasix) 40 mg EVERY 12 HOURS IV 01/25/20 14:30 02/24/20 14:29 01/28/20 08:50 Lidocaine (Lidoderm 5% PATCH) 1 patch DAILY TDERMAL 01/24/20 10:30 04/23/20 10:29 01/28/20 08:50 Ondansetron HCl (Zofran) 4 mg Q4H PRN IVP Nausea & Vomiting 01/23/20 17:30 02/22/20 17:29 01/23/20 17:40 Spironolactone (Aldactone) 25 mg DAILY ORAL 01/27/20 09:00 02/26/20 08:59 01/28/20 08:50 Trazodone HCl (Desyrel) 50 mg BEDTIME ORAL 01/25/20 21:00 02/24/20 20:59 01/27/20 20:56 Rakan Yanez MD January 28, 2020 19:22
[2020-01-28 20:00] VITALS: BP 101/57
[2020-01-28] MEDS: TraZODone 50mg tab ORAL SCH (20:46)
[2020-01-29] VITALS: BP 104/75
[2020-01-29 04:00] VITALS: BP 107/67
[2020-01-29 06:20] LABS: BASOPHILS % (AUTO) 1.2 % (0.0-2.0); EOSINOPHILS % (AUTO) 1.8 % (0.0-3.0); HEMATOCRIT 37.5 % (37.0-47.0); HEMOGLOBIN 12.9 G/DL (12.0-16.0); LYMPHOCYTES % (AUTO) 18.6 % (20.0-45.0); MEAN CORPUSCULAR VOLUME 94 FL (80-99); NEUTROPHILS % (AUTO) 68.5 % (45.0-75.0); PLATELET COUNT 132 K/UL (150-450); RED BLOOD COUNT 4.01 M/UL (4.20-5.40); RED CELL DISTRIBUTION WIDTH 16.9 % (11.6-14.8); WHITE BLOOD COUNT 5.9 K/UL (4.8-10.8)
[2020-01-29 07:07] LABS: ALBUMIN 2.7 G/DL (3.4-5.0); ALBUMIN/GLOBULIN RATIO 0.9 (1.0-2.7); ALKALINE PHOSPHATASE 142 U/L (46-116); ANION GAP 10 mmol/L (5-15); ASPARTATE AMINO TRANSFERASE 179 U/L (15-37); BILIRUBIN,TOTAL 0.5 MG/DL (0.2-1.0); BLOOD UREA NITROGEN 27 mg/dL (7-18); CALCIUM 8.3 MG/DL (8.5-10.1); CARBON DIOXIDE 29 MMOL/L (21-32); CHLORIDE 100 MMOL/L (98-107); CREATININE 1.3 MG/DL (0.55-1.30); POTASSIUM 3.4 MMOL/L (3.5-5.1); SODIUM 139 MMOL/L (136-145)
[2020-01-29 07:54] LABS: PHOSPHORUS 4.1 MG/DL (2.5-4.9)
[2020-01-29 08:00] VITALS: BP 122/92
[2020-01-29 08:31] LABS: ALANINE AMINOTRANSFERASE 528 U/L (12-78)
--- NOTE | 2020-01-29 08:31 | General Progress Note ---
Assessment/Plan Problem List: (1) Transaminitis ICD Codes: R74.0 - Nonspecific elevation of levels of transaminase and lactic acid dehydrogenase [LDH] SNOMED: 087658790, 704251271 (2) Pneumonia ICD Codes: J18.9 - Pneumonia, unspecified organism SNOMED: 364094167 (3) Atrial fibrillation with RVR ICD Codes: I48.91 - Unspecified atrial fibrillation SNOMED: 759660099994091 Status: stable Assessment/Plan: elevated LFTS, ? abx related ceftriaxone has been Dc now and LFTS are improving abd us reviewed hepatitis panel neg repeat labs in am will fu Subjective ROS Limited/Unobtainable: No Allergies: Coded Allergies: No Known Allergies (Unverified , 01/22/20) Objective Last 24 Hour Vital Signs Date Time Temp Pulse Resp B/P (MAP) Pulse Ox O2 Delivery O2 Flow Rate FiO2 01/29/20 04:00 97.7 100 18 107/67 (80) 98 01/29/20 04:00 97 01/29/20 00:00 96.8 105 18 104/75 (85) 97 01/29/20 00:00 101 01/28/20 21:22 Nasal Cannula 2.0 01/28/20 20:47 67 101/57 01/28/20 20:00 112 01/28/20 20:00 96.6 67 16 101/57 (72) 97 01/28/20 19:23 89 18 98 Nasal Cannula 2.0 28 01/28/20 19:23 98 Nasal Cannula 2.0 28 01/28/20 16:02 93 01/28/20 16:00 98.0 74 20 121/71 (88) 98 01/28/20 12:00 98.0 100 20 116/81 (93) 98 01/28/20 11:33 95 01/28/20 09:00 Nasal Cannula 2.0 01/28/20 08:50 108 134/84 Intake and Output 01/28/20 01/29/20 19:00 07:00 Intake Total 305 ml Balance 305 ml IV Total 55 ml Blood Product 250 ml Laboratory Tests 01/29/20 05:38: White Blood Count 5.9, Red Blood Count 4.01L, Hemoglobin 12.9, Hematocrit 37.5, Mean Corpuscular Volume 94, Mean Corpuscular Hemoglobin 32.2H, Mean Corpuscular Hemoglobin Concent 34.4, Red Cell Distribution Width 16.9H, Platelet Count 132L , Mean Platelet Volume 6.0L, Neutrophils (%) (Auto) 68.5, Lymphocytes (%) (Auto ) 18.6L, Monocytes (%) (Auto) 10.0, Eosinophils (%) (Auto) 1.8, Basophils (%) ( Auto) 1.2, Sodium Level 139, Potassium Level 3.4L, Chloride Level 100, Carbon Dioxide Level 29, Anion Gap 10, Blood Urea Nitrogen 27H, Creatinine 1.3, Estimat Glomerular Filtration Rate 40.5, Glucose Level 90, Calcium Level 8.3L, Phosphorus Level 4.1, Magnesium Level 1.6L, Total Bilirubin 0.5, Aspartate Amino Transf (AST/SGOT) 179H, Alanine Aminotransferase (ALT/SGPT) [Pending], Alkaline Phosphatase 142H, Total Protein 5.8L, Albumin 2.7L, Globulin 3.1, Albumin/Globulin Ratio 0.9L Height (Feet): 5 Height (Inches): 0.00 Weight (Pounds): 113 General Appearance: no apparent distress EENT: normal ENT inspection Neck: supple Cardiovascular: normal rate Respiratory/Chest: decreased breath sounds Abdomen: normal bowel sounds, non tender, soft Extremities: non-tender Ish Benoit MD January 29, 2020 08:31
[2020-01-29] MEDS: Docusate 100mg cap ORAL SCH ×2 (09:37→20:42)
[2020-01-29] MEDS: Spironolactone 25mg tab ORAL SCH (09:38)
[2020-01-29] MEDS: Carvedilol 25mg Tab ORAL SCH ×3 (09:38→21:24)
[2020-01-29] MEDS: Eliquis 2.5mg tablet ORAL SCH ×2 (09:38→20:43)
--- NOTE | 2020-01-29 09:57 | Nephrology Progress Note ---
Assessment/Plan Plan #ANDREA - likely pre-renal azotemia in the setting of renal hypoperfusion due to RVR and sepsis #Sepsis - r/o COVID #CHF- acute on chrobuc #Hypoxemic resp failure due to pneumonia - r/o COVID # Elevated LFTs- due to congestive hepatapathy #HTN #Afib #HLD - replete mag and K - lasix 40 IV BID - life vest pending - cardiology eval appreciated - continue apixaban 2.5mg BID - continue coreg 25mg BID - continue aldactone 25mg daily - GI consulted for elevated LFTs - trend LFTs - abd Us reviewed - monitor Cr and electrolytes - ID eval - pulm eval - antibiotics per ID - monitor bmp mag and phos daily - avoid nephrotoxins - strict I&Os - daily weights Subjective ROS Limited/Unobtainable: No Constitutional: Denies: no symptoms, chills, diaphoresis, fever, malaise, weakness, other HEENT: Denies: no symptoms, eye pain, blurred vision, tearing, double vision, ear pain, ear discharge, nose pain, nose congestion, throat pain, throat swelling, mouth pain, mouth swelling, other Genitourinary: Denies: no symptoms, burning, discharge, frequency, flank pain, hematuria, incontinence, pain, urgency, other Neurologic/Psychiatric: Denies: no symptoms, anxiety, depressed, emotional problems, headache, numbness, paresthesia, pre-existing deficit, seizure, tingling, tremors, weakness, other Subjective breathing stable mag and K low- repleted will replete Cr stable EF 25% Abd US: IMPRESSION: 1. Moderate large left greater than right pleural effusions. 2. Trace ascites along the right liver. Objective Objective Last 24 Hour Vital Signs Date Time Temp Pulse Resp B/P (MAP) Pulse Ox O2 Delivery O2 Flow Rate FiO2 01/29/20 09:38 98 122/92 01/29/20 08:00 97.5 98 18 122/92 (102) 99 01/29/20 07:54 125 01/29/20 07:00 98 Nasal Cannula 2.0 28 01/29/20 04:00 97.7 100 18 107/67 (80) 98 01/29/20 04:00 97 01/29/20 00:00 96.8 105 18 104/75 (85) 97 01/29/20 00:00 101 01/28/20 21:22 Nasal Cannula 2.0 01/28/20 20:47 67 101/57 01/28/20 20:00 112 01/28/20 20:00 96.6 67 16 101/57 (72) 97 01/28/20 19:23 89 18 98 Nasal Cannula 2.0 28 01/28/20 19:23 98 Nasal Cannula 2.0 28 01/28/20 16:02 93 01/28/20 16:00 98.0 74 20 121/71 (88) 98 01/28/20 12:00 98.0 100 20 116/81 (93) 98 01/28/20 11:33 95 Intake and Output 01/28/20 01/29/20 19:00 07:00 Intake Total 305 ml Balance 305 ml IV Total 55 ml Blood Product 250 ml Laboratory Tests 01/29/20 05:38: White Blood Count 5.9, Red Blood Count 4.01L, Hemoglobin 12.9, Hematocrit 37.5, Mean Corpuscular Volume 94, Mean Corpuscular Hemoglobin 32.2H, Mean Corpuscular Hemoglobin Concent 34.4, Red Cell Distribution Width 16.9H, Platelet Count 132L , Mean Platelet Volume 6.0L, Neutrophils (%) (Auto) 68.5, Lymphocytes (%) (Auto ) 18.6L, Monocytes (%) (Auto) 10.0, Eosinophils (%) (Auto) 1.8, Basophils (%) ( Auto) 1.2, Sodium Level 139, Potassium Level 3.4L, Chloride Level 100, Carbon Dioxide Level 29, Anion Gap 10, Blood Urea Nitrogen 27H, Creatinine 1.3, Estimat Glomerular Filtration Rate 40.5, Glucose Level 90, Calcium Level 8.3L, Phosphorus Level 4.1, Magnesium Level 1.6L, Total Bilirubin 0.5, Aspartate Amino Transf (AST/SGOT) 179H, Alanine Aminotransferase (ALT/SGPT) 528H, Alkaline Phosphatase 142H, Total Protein 5.8L, Albumin 2.7L, Globulin 3.1, Albumin/Globulin Ratio 0.9L Height (Feet): 5 Height (Inches): 0.00 Weight (Pounds): 113 Deo Crespo M.D. January 29, 2020 09:57
--- NOTE | 2020-01-29 11:02 | General Progress Note ---
Assessment/Plan Status: stable Assessment/Plan: Assessment #Afib RVR, on home atenolol and amiodarone #COVID vs CAP ; CXR w/ BL effusion and RLL infiltrate, CT chest confirms #ANDREA vs CKD #Transaminitis--> related to COVID as high suspicion vs will need abdominal US Plan Consultants include nephro, ID, pulm, Cardo Continue home cardiac medications as stated above, along w/ norvasc Azithromycin and Rocephin IV, [place] Cx,, Predictive Markers pending Elaquis BID for AC Trend liver enzymes, pending COVID predictive markers ( LDH, Ferritin, Ddimer, CRP); if liver enzymes continue to climb consider Abd US NS @ 75 cc/hr Cardiac Diet Subjective Cardiovascular: Reports: edema Respiratory: Reports: shortness of breath Allergies: Coded Allergies: No Known Allergies (Unverified , 01/22/20) Subjective Liver enzymes are improving; Life Vest in process, team to come back today or tomorrow, assessed patient yesterday. She is overall feeling better, her edema is improving. She has two days left of Ertapenem. Second COVID negative, feel it is okay for her to be removed from isolation if Attending agrees. Objective Last 24 Hour Vital Signs Date Time Temp Pulse Resp B/P (MAP) Pulse Ox O2 Delivery O2 Flow Rate FiO2 01/29/20 09:38 98 122/92 01/29/20 09:00 Nasal Cannula 2.0 01/29/20 08:00 97.5 98 18 122/92 (102) 99 01/29/20 07:54 125 01/29/20 07:00 98 Nasal Cannula 2.0 01/29/20 04:00 97.7 100 18 107/67 (80) 98 01/29/20 04:00 97 01/29/20 00:00 96.8 105 18 104/75 (85) 97 01/29/20 00:00 101 01/28/20 21:22 Nasal Cannula 2.0 01/28/20 20:47 67 101/57 01/28/20 20:00 112 01/28/20 20:00 96.6 67 16 101/57 (72) 97 01/28/20 19:23 89 18 98 Nasal Cannula 2.0 28 01/28/20 19:23 98 Nasal Cannula 2.0 28 01/28/20 16:02 93 01/28/20 16:00 98.0 74 20 121/71 (88) 98 01/28/20 12:00 98.0 100 20 116/81 (93) 98 01/28/20 11:33 95 Intake and Output 01/28/20 01/29/20 19:00 07:00 Intake Total 305 ml Balance 305 ml IV Total 55 ml Blood Product 250 ml Laboratory Tests 01/29/20 05:38: White Blood Count 5.9, Red Blood Count 4.01L, Hemoglobin 12.9, Hematocrit 37.5, Mean Corpuscular Volume 94, Mean Corpuscular Hemoglobin 32.2H, Mean Corpuscular Hemoglobin Concent 34.4, Red Cell Distribution Width 16.9H, Platelet Count 132L , Mean Platelet Volume 6.0L, Neutrophils (%) (Auto) 68.5, Lymphocytes (%) (Auto ) 18.6L, Monocytes (%) (Auto) 10.0, Eosinophils (%) (Auto) 1.8, Basophils (%) ( Auto) 1.2, Sodium Level 139, Potassium Level 3.4L, Chloride Level 100, Carbon Dioxide Level 29, Anion Gap 10, Blood Urea Nitrogen 27H, Creatinine 1.3, Estimat Glomerular Filtration Rate 40.5, Glucose Level 90, Calcium Level 8.3L, Phosphorus Level 4.1, Magnesium Level 1.6L, Total Bilirubin 0.5, Aspartate Amino Transf (AST/SGOT) 179H, Alanine Aminotransferase (ALT/SGPT) 528H, Alkaline Phosphatase 142H, Total Protein 5.8L, Albumin 2.7L, Globulin 3.1, Albumin/Globulin Ratio 0.9L Height (Feet): 5 Height (Inches): 0.00 Weight (Pounds): 113 Cindi Velázquez D.O. January 29, 2020 11:02
--- NOTE | 2020-01-29 11:07 | Internal Med Progress Note ---
Subjective Date of Service: January 29, 2020 Physician Name Cindi Velázquez Attending Physician Deo Crespo M.D. Current Medications Medications (Trade) Dose Ordered Sig/Thao Route PRN Reason Start Time Stop Time Status Last Admin Dose Admin Acetaminophen (Tylenol) 650 mg Q4H PRN ORAL Mild Pain (Pain Scale 1-3) 01/22/20 15:45 02/21/20 15:44 01/25/20 03:37 Al Hydroxide/Mg Hydroxide (Mylanta II) 30 ml Q6H PRN ORAL dyspepsia 01/22/20 15:45 02/21/20 15:44 01/25/20 03:38 Apixaban (Eliquis) 2.5 mg Q12HR ORAL 01/25/20 09:00 04/24/20 08:59 01/29/20 09:38 Carvedilol (Coreg) 25 mg EVERY 12 HOURS ORAL 01/28/20 09:00 02/25/20 20:59 01/29/20 09:38 Dextrose (Dextrose 50%) 25 ml Q30M PRN IV Hypoglycemia 01/22/20 15:45 04/21/20 15:44 Dextrose (Dextrose 50%) 50 ml Q30M PRN IV Hypoglycemia 01/22/20 15:45 04/21/20 15:44 Diphenhydramine HCl (Benadryl) 25 mg Q6H PRN ORAL Itching/Pruritis 01/22/20 15:45 02/21/20 15:44 01/25/20 03:35 Docusate Sodium (Colace) 100 mg EVERY 12 HOURS ORAL 01/22/20 21:00 02/21/20 20:59 01/29/20 09:37 Ertapenem 1 gm/ Sodium Chloride 55 ml @ 110 mls/hr Q24H IVPB 01/26/20 18:00 01/31/20 17:59 01/28/20 17:19 Furosemide (Lasix) 40 mg EVERY 12 HOURS IV 01/25/20 14:30 02/24/20 14:29 01/29/20 09:38 Lidocaine (Lidoderm 5% PATCH) 1 patch DAILY TDERMAL 01/24/20 10:30 04/23/20 10:29 01/29/20 09:37 Magnesium Sulfate 100 ml @ 100 mls/hr Q1H IVPB 01/29/20 10:00 01/29/20 11:59 01/29/20 10:10 Ondansetron HCl (Zofran) 4 mg Q4H PRN IVP Nausea & Vomiting 01/23/20 17:30 02/22/20 17:29 01/23/20 17:40 Potassium Chloride (K-Dur) 40 meq ONCE ORAL 01/29/20 10:00 01/29/20 12:00 01/29/20 10:11 Spironolactone (Aldactone) 25 mg DAILY ORAL 01/27/20 09:00 02/26/20 08:59 01/29/20 09:38 Trazodone HCl (Desyrel) 50 mg BEDTIME ORAL 01/25/20 21:00 02/24/20 20:59 01/28/20 20:46 Allergies: Coded Allergies: No Known Allergies (Unverified , 01/22/20) Subjective Liver enzymes are improving; Life Vest in process, team to come back today or tomorrow, assessed patient yesterday. She is overall feeling better, her edema is improving. She has two days left of Ertapenem. Second COVID negative, feel it is okay for her to be removed from isolation if Attending agrees. ABG reviewed from 01/23, and patient does not require 02 on RA Objective Last Vital Signs Date Time Temp Pulse Resp B/P (MAP) Pulse Ox O2 Delivery O2 Flow Rate FiO2 01/29/20 09:38 98 122/92 01/29/20 09:00 Nasal Cannula 2.0 01/29/20 08:00 97.5 18 99 01/29/20 07:00 28 Laboratory Tests Test 01/29/20 05:38 White Blood Count 5.9 K/UL (4.8-10.8) Red Blood Count 4.01 M/UL (4.20-5.40) L Hemoglobin 12.9 G/DL (12.0-16.0) Hematocrit 37.5 % (37.0-47.0) Mean Corpuscular Volume 94 FL (80-99) Mean Corpuscular Hemoglobin 32.2 PG (27.0-31.0) H Mean Corpuscular Hemoglobin Concent 34.4 G/DL (32.0-36.0) Red Cell Distribution Width 16.9 % (11.6-14.8) H Platelet Count 132 K/UL (150-450) L Mean Platelet Volume 6.0 FL (6.5-10.1) L Neutrophils (%) (Auto) 68.5 % (45.0-75.0) Lymphocytes (%) (Auto) 18.6 % (20.0-45.0) L Monocytes (%) (Auto) 10.0 % (1.0-10.0) Eosinophils (%) (Auto) 1.8 % (0.0-3.0) Basophils (%) (Auto) 1.2 % (0.0-2.0) Sodium Level 139 MMOL/L (136-145) Potassium Level 3.4 MMOL/L (3.5-5.1) L Chloride Level 100 MMOL/L (98-107) Carbon Dioxide Level 29 MMOL/L (21-32) Anion Gap 10 mmol/L (5-15) Blood Urea Nitrogen 27 mg/dL (7-18) H Creatinine 1.3 MG/DL (0.55-1.30) Estimat Glomerular Filtration Rate 40.5 mL/min (>60) Glucose Level 90 MG/DL (74-106) Calcium Level 8.3 MG/DL (8.5-10.1) L Phosphorus Level 4.1 MG/DL (2.5-4.9) Magnesium Level 1.6 MG/DL (1.8-2.4) L Total Bilirubin 0.5 MG/DL (0.2-1.0) Aspartate Amino Transf (AST/SGOT) 179 U/L (15-37) H Alanine Aminotransferase (ALT/SGPT) 528 U/L (12-78) H Alkaline Phosphatase 142 U/L (46-116) H Total Protein 5.8 G/DL (6.4-8.2) L Albumin 2.7 G/DL (3.4-5.0) L Globulin 3.1 g/dL Albumin/Globulin Ratio 0.9 (1.0-2.7) L Intake and Output 01/28/20 01/29/20 19:00 07:00 Intake Total 305 ml Balance 305 ml IV Total 55 ml Blood Product 250 ml Objective General Appearance: WD/WN, no apparent distress Cardiovascular: regularly irregular, BL LE Edema Respiratory/Chest: normal breath sounds, no respiratory distress Abdomen: normal bowel sounds 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 normal, oriented x 3 Assessment/Plan Assessment/Plan Assessment #Afib RVR, on home atenolol and amiodarone, both are being held #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%, severe valvular abnormalities, PHTN #COVID vs CAP ; CXR w/ BL effusion and RLL infiltrate, CT chest confirms; COVID test *2 negative #ESBL UTI #Metabolic Acidosis #ANDREA vs CKD #Transaminitis--> Presumed to be 2/2 congestive hepatopathy vs rocephin, improving Plan Appreciate Physician Team Lasix 40mg IV BID , Aldactone, Coreg BID Transition to Entresto per Cardio when available Pending Life Vest Elaquis BID Add Ertapenem for UTI --> course complete 01/30 Trend liver enzymes--> improving Cardiac Diet 01/23: Will obtain abdominal US given liver enzymes although suspect from COVID; obtain lactic acid given metabolic acidosis, and also echo. 01/24: Recommend repeat COVID; pending Abd US . Lasix initiated 01/25: Pending repeat COVID, transition to Ertapenem, continue Diuresis, Replete potassium 01/26: Patient improving w/ diuretics 01/27: continue present care, follow up regarding life vest 01/28: Pending life vest; continue present care Cindi Velázquez D.O. January 29, 2020 11:07
--- NOTE | 2020-01-29 11:24 | Pulmonology Progress Note ---
Subjective ROS Limited/Unobtainable: No Interval Events: None new Constitutional: Denies: fever HEENT: Repors: no symptoms Respiratory: Reports: no symptoms Cardiovascular: Reports: no symptoms Gastrointestinal/Abdominal: Denies: nausea, vomiting, diarrhea Psychiatric: Denies: depression Skin: Denies: rash Musculoskeletal: Denies: pain Allergies: Coded Allergies: No Known Allergies (Unverified , 01/22/20) Objective Last 24 Hour Vital Signs Date Time Temp Pulse Resp B/P (MAP) Pulse Ox O2 Delivery O2 Flow Rate FiO2 01/29/20 09:38 98 122/92 01/29/20 09:00 Nasal Cannula 2.0 01/29/20 08:00 97.5 98 18 122/92 (102) 99 01/29/20 07:54 125 01/29/20 07:00 98 Nasal Cannula 2.0 28 01/29/20 04:00 97.7 100 18 107/67 (80) 98 01/29/20 04:00 97 01/29/20 00:00 96.8 105 18 104/75 (85) 97 01/29/20 00:00 101 01/28/20 21:22 Nasal Cannula 2.0 01/28/20 20:47 67 101/57 01/28/20 20:00 112 01/28/20 20:00 96.6 67 16 101/57 (72) 97 01/28/20 19:23 89 18 98 Nasal Cannula 2.0 28 01/28/20 19:23 98 Nasal Cannula 2.0 28 01/28/20 16:02 93 01/28/20 16:00 98.0 74 20 121/71 (88) 98 01/28/20 12:00 98.0 100 20 116/81 (93) 98 01/28/20 11:33 95 Intake and Output 01/28/20 01/29/20 19:00 07:00 Intake Total 305 ml Balance 305 ml IV Total 55 ml Blood Product 250 ml General Appearance: no acute distress HEENT: normocephalic Respiratory: chest wall non-tender, decreased breath sounds Cardiovascular: normal peripheral pulses Abdomen: normal bowel sounds Extremities: no cyanosis Laboratory Tests 01/29/20 05:38: White Blood Count 5.9, Red Blood Count 4.01L, Hemoglobin 12.9, Hematocrit 37.5, Mean Corpuscular Volume 94, Mean Corpuscular Hemoglobin 32.2H, Mean Corpuscular Hemoglobin Concent 34.4, Red Cell Distribution Width 16.9H, Platelet Count 132L , Mean Platelet Volume 6.0L, Neutrophils (%) (Auto) 68.5, Lymphocytes (%) (Auto ) 18.6L, Monocytes (%) (Auto) 10.0, Eosinophils (%) (Auto) 1.8, Basophils (%) ( Auto) 1.2, Sodium Level 139, Potassium Level 3.4L, Chloride Level 100, Carbon Dioxide Level 29, Anion Gap 10, Blood Urea Nitrogen 27H, Creatinine 1.3, Estimat Glomerular Filtration Rate 40.5, Glucose Level 90, Calcium Level 8.3L, Phosphorus Level 4.1, Magnesium Level 1.6L, Total Bilirubin 0.5, Aspartate Amino Transf (AST/SGOT) 179H, Alanine Aminotransferase (ALT/SGPT) 528H, Alkaline Phosphatase 142H, Total Protein 5.8L, Albumin 2.7L, Globulin 3.1, Albumin/Globulin Ratio 0.9L Current Medications Medications (Trade) Dose Ordered Sig/Thao Route PRN Reason Start Time Stop Time Status Last Admin Dose Admin Acetaminophen (Tylenol) 650 mg Q4H PRN ORAL Mild Pain (Pain Scale 1-3) 01/22/20 15:45 02/21/20 15:44 01/25/20 03:37 Al Hydroxide/Mg Hydroxide (Mylanta II) 30 ml Q6H PRN ORAL dyspepsia 01/22/20 15:45 02/21/20 15:44 01/25/20 03:38 Apixaban (Eliquis) 2.5 mg Q12HR ORAL 01/25/20 09:00 04/24/20 08:59 01/29/20 09:38 Carvedilol (Coreg) 25 mg EVERY 12 HOURS ORAL 01/28/20 09:00 02/25/20 20:59 01/29/20 09:38 Dextrose (Dextrose 50%) 25 ml Q30M PRN IV Hypoglycemia 01/22/20 15:45 04/21/20 15:44 Dextrose (Dextrose 50%) 50 ml Q30M PRN IV Hypoglycemia 01/22/20 15:45 04/21/20 15:44 Diphenhydramine HCl (Benadryl) 25 mg Q6H PRN ORAL Itching/Pruritis 01/22/20 15:45 02/21/20 15:44 01/25/20 03:35 Docusate Sodium (Colace) 100 mg EVERY 12 HOURS ORAL 01/22/20 21:00 02/21/20 20:59 01/29/20 09:37 Ertapenem 1 gm/ Sodium Chloride 55 ml @ 110 mls/hr Q24H IVPB 01/26/20 18:00 01/31/20 17:59 01/28/20 17:19 Furosemide (Lasix) 40 mg EVERY 12 HOURS IV 01/25/20 14:30 02/24/20 14:29 01/29/20 09:38 Lidocaine (Lidoderm 5% PATCH) 1 patch DAILY TDERMAL 01/24/20 10:30 04/23/20 10:29 01/29/20 09:37 Magnesium Sulfate 100 ml @ 100 mls/hr Q1H IVPB 01/29/20 10:00 01/29/20 11:59 01/29/20 11:12 Ondansetron HCl (Zofran) 4 mg Q4H PRN IVP Nausea & Vomiting 01/23/20 17:30 02/22/20 17:29 01/23/20 17:40 Potassium Chloride (K-Dur) 40 meq ONCE ORAL 01/29/20 10:00 01/29/20 12:00 01/29/20 10:11 Spironolactone (Aldactone) 25 mg DAILY ORAL 01/27/20 09:00 02/26/20 08:59 01/29/20 09:38 Trazodone HCl (Desyrel) 50 mg BEDTIME ORAL 01/25/20 21:00 02/24/20 20:59 01/28/20 20:46 Assessment/Plan Assessment/Plan IMPRESSION: 1. Right lung pneumonia. 2. Bilateral pleural effusions. 3. Atrial fibrillation. 4. Hypertension. DISCUSSION: Continue rate control as well as anticoagulation, broad-spectrum antibiotics. I will follow carefully. Saturating 96% on 2L/min O2 Anticipate dc on RA Asael Alvares M.D. Asael Alvares MD January 29, 2020 11:24
[2020-01-29 12:00] VITALS: BP 108/73
[2020-01-29 15:54] VITALS: BP 121/88
[2020-01-29] MEDS: Ertapenem 1 GM in NS 55 ML IVPB SCH (17:15)
[2020-01-29] MEDS ORDERED: Metoprolol Tartrate 5mg/5ml Inj IVP SCH (17:30)
[2020-01-29] MEDS ORDERED: Metoprolol Tartrate 10 MG in D5W 55 ML IVPB ONE (18:00)
[2020-01-29 20:00] VITALS: BP 127/88
[2020-01-29] MEDS: TraZODone 50mg tab ORAL SCH (20:42)
[2020-01-30] VITALS: BP 101/68
[2020-01-30 04:00] VITALS: BP 129/68
--- NOTE | 2020-01-30 07:23 | General Progress Note ---
Assessment/Plan Problem List: (1) Transaminitis ICD Codes: R74.0 - Nonspecific elevation of levels of transaminase and lactic acid dehydrogenase [LDH] SNOMED: 833986724, 243910960 (2) Pneumonia ICD Codes: J18.9 - Pneumonia, unspecified organism SNOMED: 145916365 (3) Atrial fibrillation with RVR ICD Codes: I48.91 - Unspecified atrial fibrillation SNOMED: 110306137018878 Status: stable Assessment/Plan: elevated LFTS, ? abx related ceftriaxone has been Dc now and LFTS are improving abd us reviewed hepatitis panel neg repeat labs in am will fu Subjective Allergies: Coded Allergies: No Known Allergies (Unverified , 01/22/20) Objective Last 24 Hour Vital Signs Date Time Temp Pulse Resp B/P (MAP) Pulse Ox O2 Delivery O2 Flow Rate FiO2 01/30/20 04:00 97.6 95 20 129/68 (88) 100 01/30/20 04:00 95 01/30/20 00:00 97.0 78 16 101/68 (79) 99 01/30/20 00:00 90 01/29/20 21:24 89 127/88 01/29/20 21:00 Nasal Cannula 2.0 01/29/20 20:02 90 18 98 Nasal Cannula 2.0 28 01/29/20 20:02 98 Nasal Cannula 2.0 28 01/29/20 20:00 96.4 89 18 127/88 (101) 98 01/29/20 20:00 114 01/29/20 18:08 141 125/81 01/29/20 16:15 113 01/29/20 15:54 96.6 96 18 121/88 (99) 99 01/29/20 12:00 96.7 82 18 108/73 (85) 100 01/29/20 11:34 101 01/29/20 09:38 98 122/92 01/29/20 09:00 Nasal Cannula 2.0 01/29/20 08:00 97.5 98 18 122/92 (102) 99 01/29/20 07:54 125 Intake and Output 01/29/20 01/30/20 19:00 07:00 Intake Total 1095 ml 240 ml Balance 1095 ml 240 ml Intake Oral 840 ml 240 ml IV Total 255 ml # Voids 3 1 Height (Feet): 5 Height (Inches): 0.00 Weight (Pounds): 110 General Appearance: no apparent distress EENT: normal ENT inspection Neck: supple Cardiovascular: normal rate Respiratory/Chest: decreased breath sounds Abdomen: normal bowel sounds, non tender, soft Extremities: non-tender Ish Benoit MD January 30, 2020 07:23
[2020-01-30 08:00] VITALS: BP 116/83
[2020-01-30 08:44] LABS: BASOPHILS % (AUTO) 1.2 % (0.0-2.0); EOSINOPHILS % (AUTO) 2.8 % (0.0-3.0); HEMATOCRIT 39.9 % (37.0-47.0); HEMOGLOBIN 13.7 G/DL (12.0-16.0); LYMPHOCYTES % (AUTO) 20.8 % (20.0-45.0); MEAN CORPUSCULAR VOLUME 94 FL (80-99); MONOCYTES % (AUTO) 7.7 % (1.0-10.0); NEUTROPHILS % (AUTO) 67.6 % (45.0-75.0); PLATELET COUNT 146 K/UL (150-450); RED BLOOD COUNT 4.26 M/UL (4.20-5.40); RED CELL DISTRIBUTION WIDTH 16.4 % (11.6-14.8); WHITE BLOOD COUNT 5.6 K/UL (4.8-10.8)
--- NOTE | 2020-01-30 09:00 | Pulmonology Progress Note ---
Subjective ROS Limited/Unobtainable: No Interval Events: None new Constitutional: Denies: fever HEENT: Repors: no symptoms Respiratory: Reports: no symptoms Cardiovascular: Reports: no symptoms Gastrointestinal/Abdominal: Denies: nausea, vomiting, diarrhea Psychiatric: Denies: depression Skin: Denies: rash Musculoskeletal: Denies: pain Allergies: Coded Allergies: No Known Allergies (Unverified , 01/22/20) Objective Last 24 Hour Vital Signs Date Time Temp Pulse Resp B/P (MAP) Pulse Ox O2 Delivery O2 Flow Rate FiO2 01/30/20 08:03 Room Air 2.0 Nasal Cannula 01/30/20 04:00 97.6 95 20 129/68 (88) 100 01/30/20 04:00 95 01/30/20 00:00 97.0 78 16 101/68 (79) 99 01/30/20 00:00 90 01/29/20 21:24 89 127/88 01/29/20 21:00 Nasal Cannula 2.0 01/29/20 20:02 90 18 98 Nasal Cannula 2.0 28 01/29/20 20:02 98 Nasal Cannula 2.0 28 01/29/20 20:00 96.4 89 18 127/88 (101) 98 01/29/20 20:00 114 01/29/20 18:08 141 125/81 01/29/20 16:15 113 01/29/20 15:54 96.6 96 18 121/88 (99) 99 01/29/20 12:00 96.7 82 18 108/73 (85) 100 01/29/20 11:34 101 01/29/20 09:38 98 122/92 01/29/20 09:00 Nasal Cannula 2.0 Intake and Output 01/29/20 01/30/20 18:59 06:59 Intake Total 1095 ml 240 ml Balance 1095 ml 240 ml Intake Oral 840 ml 240 ml IV Total 255 ml # Voids 3 1 General Appearance: no acute distress HEENT: normocephalic Respiratory: chest wall non-tender, decreased breath sounds Cardiovascular: normal peripheral pulses Abdomen: normal bowel sounds Extremities: no cyanosis Laboratory Tests 01/30/20 07:45: White Blood Count 5.6, Red Blood Count 4.26, Hemoglobin 13.7, Hematocrit 39.9, Mean Corpuscular Volume 94, Mean Corpuscular Hemoglobin 32.2H, Mean Corpuscular Hemoglobin Concent 34.3, Red Cell Distribution Width 16.4H, Platelet Count 146L , Mean Platelet Volume 6.5, Neutrophils (%) (Auto) 67.6, Lymphocytes (%) (Auto) 20.8, Monocytes (%) (Auto) 7.7, Eosinophils (%) (Auto) 2.8, Basophils (%) (Auto ) 1.2, Sodium Level [Pending], Potassium Level [Pending], Chloride Level [ Pending], Carbon Dioxide Level [Pending], Blood Urea Nitrogen [Pending], Creatinine [Pending], Estimat Glomerular Filtration Rate [Pending], Glucose Level [Pending], Calcium Level [Pending], Phosphorus Level [Pending], Magnesium Level [Pending], Total Bilirubin [Pending], Aspartate Amino Transf (AST/SGOT) [ Pending], Alanine Aminotransferase (ALT/SGPT) [Pending], Alkaline Phosphatase [ Pending], Total Protein [Pending], Albumin [Pending], Globulin [Pending] Current Medications Medications (Trade) Dose Ordered Sig/Thao Route PRN Reason Start Time Stop Time Status Last Admin Dose Admin Acetaminophen (Tylenol) 650 mg Q4H PRN ORAL Mild Pain (Pain Scale 1-3) 01/22/20 15:45 02/21/20 15:44 01/25/20 03:37 Al Hydroxide/Mg Hydroxide (Mylanta II) 30 ml Q6H PRN ORAL dyspepsia 01/22/20 15:45 02/21/20 15:44 01/25/20 03:38 Apixaban (Eliquis) 2.5 mg Q12HR ORAL 01/25/20 09:00 04/24/20 08:59 01/29/20 09:38 Carvedilol (Coreg) 25 mg EVERY 12 HOURS ORAL 01/28/20 09:00 02/25/20 20:59 01/29/20 21:24 Dextrose (Dextrose 50%) 25 ml Q30M PRN IV Hypoglycemia 01/22/20 15:45 04/21/20 15:44 Dextrose (Dextrose 50%) 50 ml Q30M PRN IV Hypoglycemia 01/22/20 15:45 04/21/20 15:44 Diphenhydramine HCl (Benadryl) 25 mg Q6H PRN ORAL Itching/Pruritis 01/22/20 15:45 02/21/20 15:44 01/25/20 03:35 Docusate Sodium (Colace) 100 mg EVERY 12 HOURS ORAL 01/22/20 21:00 02/21/20 20:59 01/29/20 20:42 Ertapenem 1 gm/ Sodium Chloride 55 ml @ 110 mls/hr Q24H IVPB 01/26/20 18:00 01/31/20 17:59 01/29/20 17:15 Furosemide (Lasix) 40 mg EVERY 12 HOURS IV 01/25/20 14:30 02/24/20 14:29 01/29/20 09:38 Lidocaine (Lidoderm 5% PATCH) 1 patch DAILY TDERMAL 01/24/20 10:30 04/23/20 10:29 01/29/20 09:37 Ondansetron HCl (Zofran) 4 mg Q4H PRN IVP Nausea & Vomiting 01/23/20 17:30 02/22/20 17:29 01/23/20 17:40 Spironolactone (Aldactone) 25 mg DAILY ORAL 01/27/20 09:00 02/26/20 08:59 01/29/20 09:38 Trazodone HCl (Desyrel) 50 mg BEDTIME ORAL 01/25/20 21:00 02/24/20 20:59 01/29/20 20:42 Assessment/Plan Assessment/Plan IMPRESSION: 1. Right lung pneumonia. 2. Bilateral pleural effusions. 3. Atrial fibrillation. 4. Hypertension. DISCUSSION: Continue rate control as well as anticoagulation, broad-spectrum antibiotics. I will follow carefully. Saturating 96% on 2L/min O2 Anticipate dc on RA Josr Singh Omar Syed MD January 30, 2020 08:59
[2020-01-30 09:07] LABS: ALANINE AMINOTRANSFERASE 421 U/L (12-78); ALBUMIN/GLOBULIN RATIO 0.9 (1.0-2.7); ALKALINE PHOSPHATASE 138 U/L (46-116); ANION GAP 9 mmol/L (5-15); ASPARTATE AMINO TRANSFERASE 131 U/L (15-37); BILIRUBIN,TOTAL 0.6 MG/DL (0.2-1.0); BLOOD UREA NITROGEN 23 mg/dL (7-18); CALCIUM 8.4 MG/DL (8.5-10.1); CARBON DIOXIDE 29 MMOL/L (21-32); CHLORIDE 101 MMOL/L (98-107); CREATININE 1.4 MG/DL (0.55-1.30); PHOSPHORUS 3.9 MG/DL (2.5-4.9); POTASSIUM 4.1 MMOL/L (3.5-5.1); SODIUM 139 MMOL/L (136-145)
[2020-01-30] MEDS: Carvedilol 25mg Tab ORAL SCH ×2 (09:08→21:05)
[2020-01-30] MEDS: Spironolactone 25mg tab ORAL SCH (09:08)
[2020-01-30] MEDS: Eliquis 2.5mg tablet ORAL SCH ×2 (09:08→21:05)
[2020-01-30] MEDS: Docusate 100mg cap ORAL SCH ×2 (09:08→21:04)
--- NOTE | 2020-01-30 11:41 | Nephrology Progress Note ---
Assessment/Plan Plan #ANDREA - likely pre-renal azotemia in the setting of renal hypoperfusion due to RVR and sepsis #Sepsis - r/o COVID #CHF- acute on chrobuc #Hypoxemic resp failure due to pneumonia - r/o COVID # Elevated LFTs- due to congestive hepatapathy #HTN #Afib #HLD - replete mag and K - lasix 40 IV BID - life vest pending - cardiology eval appreciated - continue apixaban 2.5mg BID - continue coreg 25mg BID - continue aldactone 25mg daily - GI consulted for elevated LFTs - trend LFTs - abd Us reviewed - monitor Cr and electrolytes - ID eval - pulm eval - antibiotics per ID - monitor bmp mag and phos daily - avoid nephrotoxins - strict I&Os - daily weights Subjective ROS Limited/Unobtainable: No Constitutional: Denies: no symptoms, chills, diaphoresis, fever, malaise, weakness, other HEENT: Denies: no symptoms, eye pain, blurred vision, tearing, double vision, ear pain, ear discharge, nose pain, nose congestion, throat pain, throat swelling, mouth pain, mouth swelling, other Genitourinary: Denies: no symptoms, burning, discharge, frequency, flank pain, hematuria, incontinence, pain, urgency, other Neurologic/Psychiatric: Denies: no symptoms, anxiety, depressed, emotional problems, headache, numbness, paresthesia, pre-existing deficit, seizure, tingling, tremors, weakness, other Subjective breathing stable mag and K low- repleted will replete Cr stable EF 25% Abd US: IMPRESSION: 1. Moderate large left greater than right pleural effusions. 2. Trace ascites along the right liver. Objective Objective Last 24 Hour Vital Signs Date Time Temp Pulse Resp B/P (MAP) Pulse Ox O2 Delivery O2 Flow Rate FiO2 01/30/20 09:08 95 129/68 01/30/20 08:03 Room Air 2.0 Nasal Cannula 01/30/20 08:00 111 01/30/20 08:00 96.5 111 19 116/83 (94) 96 01/30/20 04:00 97.6 95 20 129/68 (88) 100 01/30/20 04:00 95 01/30/20 00:00 97.0 78 16 101/68 (79) 99 01/30/20 00:00 90 01/29/20 21:24 89 127/88 01/29/20 21:00 Nasal Cannula 2.0 01/29/20 20:02 90 18 98 Nasal Cannula 2.0 28 01/29/20 20:02 98 Nasal Cannula 2.0 28 01/29/20 20:00 96.4 89 18 127/88 (101) 98 01/29/20 20:00 114 01/29/20 18:08 141 125/81 01/29/20 16:15 113 01/29/20 15:54 96.6 96 18 121/88 (99) 99 01/29/20 12:00 96.7 82 18 108/73 (85) 100 Intake and Output 01/29/20 01/30/20 19:00 07:00 Intake Total 1095 ml 240 ml Balance 1095 ml 240 ml Intake Oral 840 ml 240 ml IV Total 255 ml # Voids 3 1 Laboratory Tests 01/30/20 07:45: White Blood Count 5.6, Red Blood Count 4.26, Hemoglobin 13.7, Hematocrit 39.9, Mean Corpuscular Volume 94, Mean Corpuscular Hemoglobin 32.2H, Mean Corpuscular Hemoglobin Concent 34.3, Red Cell Distribution Width 16.4H, Platelet Count 146L , Mean Platelet Volume 6.5, Neutrophils (%) (Auto) 67.6, Lymphocytes (%) (Auto) 20.8, Monocytes (%) (Auto) 7.7, Eosinophils (%) (Auto) 2.8, Basophils (%) (Auto ) 1.2, Sodium Level 139, Potassium Level 4.1, Chloride Level 101, Carbon Dioxide Level 29, Anion Gap 9, Blood Urea Nitrogen 23H, Creatinine 1.4H, Estimat Glomerular Filtration Rate 37.2, Glucose Level 143H, Calcium Level 8.4L , Phosphorus Level 3.9, Magnesium Level 2.2, Total Bilirubin 0.6, Aspartate Amino Transf (AST/SGOT) 131H, Alanine Aminotransferase (ALT/SGPT) 421H, Alkaline Phosphatase 138H, Total Protein 6.3L, Albumin 3.0L, Globulin 3.3, Albumin/Globulin Ratio 0.9L Height (Feet): 5 Height (Inches): 0.00 Weight (Pounds): 110 Deo Crespo M.D. 30, 2020 11:41
--- NOTE | 2020-01-30 11:53 | Cardiology Progress Note ---
Assessment/Plan Status: stable Assessment/Plan Assessment/Plan Status: stable Assessment/Plan: ASSESSMENT: Atrial fibrillation Hypertension Pleural effusion ANDREA UTI HLD Respiratory failure Elevated livery function tests Elevated CRP Systolic heart failure Severe pulmonary hypertension PLAN: -CONTINUE coreg to 25 mg BID -LIFE VEST for arrhythmias protection - patient could not afford - will need to arrange ICD outpatient in three months if LV function does not improve -Anticoagulation with Eliquis for AFIB and possible LV thrombus -D/c Amiodarone re elevated LFT - now improving -D/c norvasc -Continue losartan for afterload reduction and BP control -Echocardiogram reviewed with severe PAH and Systolic dysfunction -Will need ischemia evaluation when stable - will arrange as outpatient -No indication for cardioversion, patient hemodynamically stable -Outpatient EP consult for AFIB Ablation and possible ICD -Maintain lasix for diuresis -Continue aldactone 25 mg -Replete electrolytes -Will arrange ENTRESTO as outpatient , will need to d/c losartan at that time -Poor prognosis from cardiac standpoint Subjective Cardiovascular: Reports: no symptoms Respiratory: Reports: no symptoms Gastrointestinal/Abdominal: Reports: no symptoms Genitourinary: Reports: no symptoms Subjective No acute events, TTE with severe systolic dysfunction possible LV thrombus, severe PAH and moderate TR LFT rising - congestive liver? Rates controlled 100s dose of coreg increased to 25 mg BID and additional metoprolol given, heart rates controlled now Qualified for life vest but could not afford - will need to arrange ICD at later date Objective Last 24 Hour Vital Signs Date Time Temp Pulse Resp B/P (MAP) Pulse Ox O2 Delivery O2 Flow Rate FiO2 01/30/20 09:08 95 129/68 01/30/20 08:03 Room Air 2.0 Nasal Cannula 01/30/20 08:00 111 01/30/20 08:00 96.5 111 19 116/83 (94) 96 01/30/20 04:00 97.6 95 20 129/68 (88) 100 01/30/20 04:00 95 01/30/20 00:00 97.0 78 16 101/68 (79) 99 01/30/20 00:00 90 01/29/20 21:24 89 127/88 01/29/20 21:00 Nasal Cannula 2.0 01/29/20 20:02 90 18 98 Nasal Cannula 2.0 28 01/29/20 20:02 98 Nasal Cannula 2.0 28 01/29/20 20:00 96.4 89 18 127/88 (101) 98 01/29/20 20:00 114 01/29/20 18:08 141 125/81 01/29/20 16:15 113 01/29/20 15:54 96.6 96 18 121/88 (99) 99 01/29/20 12:00 96.7 82 18 108/73 (85) 100 General Appearance: no apparent distress, alert EENT: PERRL/EOMI, normal ENT inspection, TMs normal, pharynx normal Neck: non-tender, normal alignment, supple, normal inspection, no JVD Rhythm: Afib Cardiovascular: tachycardia, arrhythmia, irregularly irregular Respiratory/Chest: chest wall non-tender, lungs clear, normal breath sounds, no respiratory distress Abdomen: normal bowel sounds, non tender, soft, no organomegaly 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 normal, no motor/sensory deficits Intake and Output 01/29/20 01/30/20 18:59 06:59 Intake Total 1095 ml 240 ml Balance 1095 ml 240 ml Intake Oral 840 ml 240 ml IV Total 255 ml # Voids 3 1 Laboratory Tests Test 01/30/20 07:45 White Blood Count 5.6 K/UL (4.8-10.8) Red Blood Count 4.26 M/UL (4.20-5.40) Hemoglobin 13.7 G/DL (12.0-16.0) Hematocrit 39.9 % (37.0-47.0) Mean Corpuscular Volume 94 FL (80-99) Mean Corpuscular Hemoglobin 32.2 PG (27.0-31.0) H Mean Corpuscular Hemoglobin Concent 34.3 G/DL (32.0-36.0) Red Cell Distribution Width 16.4 % (11.6-14.8) H Platelet Count 146 K/UL (150-450) L Mean Platelet Volume 6.5 FL (6.5-10.1) Neutrophils (%) (Auto) 67.6 % (45.0-75.0) Lymphocytes (%) (Auto) 20.8 % (20.0-45.0) Monocytes (%) (Auto) 7.7 % (1.0-10.0) Eosinophils (%) (Auto) 2.8 % (0.0-3.0) Basophils (%) (Auto) 1.2 % (0.0-2.0) Sodium Level 139 MMOL/L (136-145) Potassium Level 4.1 MMOL/L (3.5-5.1) Chloride Level 101 MMOL/L (98-107) Carbon Dioxide Level 29 MMOL/L (21-32) Anion Gap 9 mmol/L (5-15) Blood Urea Nitrogen 23 mg/dL (7-18) H Creatinine 1.4 MG/DL (0.55-1.30) H Estimat Glomerular Filtration Rate 37.2 mL/min (>60) Glucose Level 143 MG/DL (74-106) H Calcium Level 8.4 MG/DL (8.5-10.1) L Phosphorus Level 3.9 MG/DL (2.5-4.9) Magnesium Level 2.2 MG/DL (1.8-2.4) Total Bilirubin 0.6 MG/DL (0.2-1.0) Aspartate Amino Transf (AST/SGOT) 131 U/L (15-37) H Alanine Aminotransferase (ALT/SGPT) 421 U/L (12-78) H Alkaline Phosphatase 138 U/L (46-116) H Total Protein 6.3 G/DL (6.4-8.2) L Albumin 3.0 G/DL (3.4-5.0) L Globulin 3.3 g/dL Albumin/Globulin Ratio 0.9 (1.0-2.7) L Butch Brunson MD January 30, 2020 11:53
[2020-01-30 12:00] VITALS: BP 100/70
--- NOTE | 2020-01-30 13:45 | Infectious Diseases Prog Note ---
Assessment/Plan Assessment/Plan ASSESSMENT/PLAN: 1. esbl e.coli uti, ? CAP, rule out covid-19 infection/pna - pcr neg x 2 - ertapenem - day # 5 - can discharge on bactrim x 3 days - covid-19 pcr test neg x 2 - can remove isolation - monitor labs and chest x-ray as indicated - will sign off, call if questions 2. Elevated creatinine, acute kidney injury. 3. Hypertension. 4. Blood pressure treatment per primary care team. 5. Atrial fibrillation with rapid ventricular response. 6. Effusions. 7. Elevated transaminases. 8. Continue treatment per primary consultants. 9. Orders were noted and entered. 10. No known drug allergies. 11. Social history negative. 12. Family history noncontributory. 13. MAR is noted. 14. Case discussed with primary team. Subjective Constitutional: Denies: fever Respiratory: Denies: shortness of breath Cardiovascular: Denies: chest pain Allergies: Coded Allergies: No Known Allergies (Unverified , 01/22/20) Objective Vital Signs Last 24 Hour Vital Signs Date Time Temp Pulse Resp B/P (MAP) Pulse Ox O2 Delivery O2 Flow Rate FiO2 01/30/20 09:08 95 129/68 01/30/20 08:03 Room Air 2.0 Nasal Cannula 01/30/20 08:00 111 01/30/20 08:00 96.5 111 19 116/83 (94) 96 01/30/20 04:00 97.6 95 20 129/68 (88) 100 01/30/20 04:00 95 01/30/20 00:00 97.0 78 16 101/68 (79) 99 01/30/20 00:00 90 01/29/20 21:24 89 127/88 01/29/20 21:00 Nasal Cannula 2.0 01/29/20 20:02 90 18 98 Nasal Cannula 2.0 28 01/29/20 20:02 98 Nasal Cannula 2.0 28 01/29/20 20:00 96.4 89 18 127/88 (101) 98 01/29/20 20:00 114 01/29/20 18:08 141 125/81 01/29/20 16:15 113 01/29/20 15:54 96.6 96 18 121/88 (99) 99 Height (Feet): 5 Height (Inches): 0.00 Weight (Pounds): 110 General Appearance: no acute distress HEENT: normocephalic, atraumatic, anicteric Respiratory/Chest: lungs clear, normal breath sounds Cardiovascular: normal rate, regular rhythm Objective Chest x-ray - 01/22/20 - Procedure: XRAY Chest 1v Procedure: XRAY Chest 1v Reason for study: Shortness of breath. Comparison films: None. FINDINGS: A single one view chest is obtained. There is mild to moderate vascular prominence. Right basilar infiltrate with small right effusion noted. There is cardiomegaly . The bony thorax appear unremarkable. IMPRESSION: Right basilar infiltrate and small effusion. Chest x-ray - 01/25/20 - Procedure: XRAY Chest 1v EXAM: XR Chest, 1 View CLINICAL HISTORY: INFECT TECHNIQUE: Frontal view of the chest. COMPARISON: January 22, 2020 FINDINGS: Enlarged cardiac silhouette with central vascular congestion. Low lung volumes. Right lower lobe infiltrate and effusion again noted, slightly worse. Likely left basilar atelectasis/infiltrate and small left effusion. IMPRESSION: Right greater than left bilateral lower lobe atelectasis/infiltrates and effusions. Enlarged cardiac silhouette with central vascular congestion. Laboratory Tests Test 01/30/20 07:45 White Blood Count 5.6 K/UL (4.8-10.8) Red Blood Count 4.26 M/UL (4.20-5.40) Hemoglobin 13.7 G/DL (12.0-16.0) Hematocrit 39.9 % (37.0-47.0) Mean Corpuscular Volume 94 FL (80-99) Mean Corpuscular Hemoglobin 32.2 PG (27.0-31.0) H Mean Corpuscular Hemoglobin Concent 34.3 G/DL (32.0-36.0) Red Cell Distribution Width 16.4 % (11.6-14.8) H Platelet Count 146 K/UL (150-450) L Mean Platelet Volume 6.5 FL (6.5-10.1) Neutrophils (%) (Auto) 67.6 % (45.0-75.0) Lymphocytes (%) (Auto) 20.8 % (20.0-45.0) Monocytes (%) (Auto) 7.7 % (1.0-10.0) Eosinophils (%) (Auto) 2.8 % (0.0-3.0) Basophils (%) (Auto) 1.2 % (0.0-2.0) Sodium Level 139 MMOL/L (136-145) Potassium Level 4.1 MMOL/L (3.5-5.1) Chloride Level 101 MMOL/L (98-107) Carbon Dioxide Level 29 MMOL/L (21-32) Anion Gap 9 mmol/L (5-15) Blood Urea Nitrogen 23 mg/dL (7-18) H Creatinine 1.4 MG/DL (0.55-1.30) H Estimat Glomerular Filtration Rate 37.2 mL/min (>60) Glucose Level 143 MG/DL (74-106) H Calcium Level 8.4 MG/DL (8.5-10.1) L Phosphorus Level 3.9 MG/DL (2.5-4.9) Magnesium Level 2.2 MG/DL (1.8-2.4) Total Bilirubin 0.6 MG/DL (0.2-1.0) Aspartate Amino Transf (AST/SGOT) 131 U/L (15-37) H Alanine Aminotransferase (ALT/SGPT) 421 U/L (12-78) H Alkaline Phosphatase 138 U/L (46-116) H Total Protein 6.3 G/DL (6.4-8.2) L Albumin 3.0 G/DL (3.4-5.0) L Globulin 3.3 g/dL Albumin/Globulin Ratio 0.9 (1.0-2.7) L Current Medications Medications (Trade) Dose Ordered Sig/Thao Route PRN Reason Start Time Stop Time Status Last Admin Dose Admin Acetaminophen (Tylenol) 650 mg Q4H PRN ORAL Mild Pain (Pain Scale 1-3) 01/22/20 15:45 02/21/20 15:44 01/25/20 03:37 Al Hydroxide/Mg Hydroxide (Mylanta II) 30 ml Q6H PRN ORAL dyspepsia 01/22/20 15:45 02/21/20 15:44 01/25/20 03:38 Apixaban (Eliquis) 2.5 mg Q12HR ORAL 01/25/20 09:00 04/24/20 08:59 01/30/20 09:08 Carvedilol (Coreg) 25 mg EVERY 12 HOURS ORAL 01/28/20 09:00 02/25/20 20:59 01/30/20 09:08 Dextrose (Dextrose 50%) 25 ml Q30M PRN IV Hypoglycemia 01/22/20 15:45 04/21/20 15:44 Dextrose (Dextrose 50%) 50 ml Q30M PRN IV Hypoglycemia 01/22/20 15:45 04/21/20 15:44 Diphenhydramine HCl (Benadryl) 25 mg Q6H PRN ORAL Itching/Pruritis 01/22/20 15:45 02/21/20 15:44 01/25/20 03:35 Docusate Sodium (Colace) 100 mg EVERY 12 HOURS ORAL 01/22/20 21:00 02/21/20 20:59 01/30/20 09:08 Ertapenem 1 gm/ Sodium Chloride 55 ml @ 110 mls/hr Q24H IVPB 01/26/20 18:00 01/31/20 17:59 01/29/20 17:15 Furosemide (Lasix) 40 mg DAILY IV 01/31/20 09:00 02/24/20 14:29 Lidocaine (Lidoderm 5% PATCH) 1 patch DAILY TDERMAL 01/24/20 10:30 04/23/20 10:29 01/30/20 09:08 Ondansetron HCl (Zofran) 4 mg Q4H PRN IVP Nausea & Vomiting 01/23/20 17:30 02/22/20 17:29 01/23/20 17:40 Spironolactone (Aldactone) 25 mg DAILY ORAL 01/27/20 09:00 02/26/20 08:59 01/30/20 09:08 Trazodone HCl (Desyrel) 50 mg BEDTIME ORAL 01/25/20 21:00 02/24/20 20:59 01/29/20 20:42 Rakan Yanez MD January 30, 2020 13:45
--- NOTE | 2020-01-30 15:04 | General Progress Note ---
Assessment/Plan Status: stable Assessment/Plan: Assessment/Plan Assessment #Afib RVR, on home atenolol and amiodarone, both are being held #Acute on chronic Systolic Congestive Heart Failure Exacerbation w/ EF of 25%, severe valvular abnormalities, PHTN #Acute hypoxic respiratory failure #COVID vs CAP ; CXR w/ BL effusion and RLL infiltrate, CT chest confirms; COVID test *2 negative #ESBL UTI #Metabolic Acidosis #ANDREA vs CKD #Transaminitis--> Presumed to be 2/2 congestive hepatopathy vs rocephin, improving Plan Appreciate Physician Team Transition to Lasix 40mg IV daily , Aldactone, Coreg BID Transition to Entresto per Cardio when available as outpatient patient unable to afford LIFE VEST including with social work help. per Cardiology can D/C and f/u as outpatient for ICD eval and EP eval for ablation of afib Elaquis BID Continue Ertapenem for UTI --> can transition to PO Bactrim upon D/c Trend liver enzymes--> improving Cardiac Diet 01/23: Will obtain abdominal US given liver enzymes although suspect from COVID; obtain lactic acid given metabolic acidosis, and also echo. 01/24: Recommend repeat COVID; pending Abd US . Lasix initiated 01/25: Pending repeat COVID, transition to Ertapenem, continue Diuresis, Replete potassium 01/26: Patient improving w/ diuretics 01/27: continue present care, follow up regarding life vest 01/28: Pending life vest; continue present care 40 minutes spent on this encounter with 22 on counseling and care coordination. D/w cardiology, infectious disease, RN at bedside. I spent an additional 32 minutes reviewing medical records including prior hospitalization notes, clinic notes, consultation notes, prior labs, and prior imaging. Subjective Date patient seen: January 30, 2020 Allergies: Coded Allergies: No Known Allergies (Unverified , 01/22/20) All Systems: reviewed and negative except above - 12 point ROS negative except as listed in HPI Subjective Chart reviewed. admitted for acute hypoxic resp failure due to CHF exacerbation and ESBL UTI. Patient feels much better. Still requiring 2L NC. Denies chest pain, fever or chills. Objective Last 24 Hour Vital Signs Date Time Temp Pulse Resp B/P (MAP) Pulse Ox O2 Delivery O2 Flow Rate FiO2 01/30/20 12:00 97 01/30/20 12:00 96.8 97 18 100/70 (80) 97 01/30/20 09:08 95 129/68 01/30/20 08:03 Room Air 2.0 Nasal Cannula 01/30/20 08:00 111 01/30/20 08:00 96.5 111 19 116/83 (94) 96 01/30/20 04:00 97.6 95 20 129/68 (88) 100 01/30/20 04:00 95 01/30/20 00:00 97.0 78 16 101/68 (79) 99 01/30/20 00:00 90 01/29/20 21:24 89 127/88 01/29/20 21:00 Nasal Cannula 2.0 01/29/20 20:02 90 18 98 Nasal Cannula 2.0 28 01/29/20 20:02 98 Nasal Cannula 2.0 28 01/29/20 20:00 96.4 89 18 127/88 (101) 98 01/29/20 20:00 114 01/29/20 18:08 141 125/81 01/29/20 16:15 113 01/29/20 15:54 96.6 96 18 121/88 (99) 99 Intake and Output 01/29/20 01/30/20 19:00 07:00 Intake Total 1095 ml 240 ml Balance 1095 ml 240 ml Intake Oral 840 ml 240 ml IV Total 255 ml # Voids 3 1 Laboratory Tests 01/30/20 07:45: White Blood Count 5.6, Red Blood Count 4.26, Hemoglobin 13.7, Hematocrit 39.9, Mean Corpuscular Volume 94, Mean Corpuscular Hemoglobin 32.2H, Mean Corpuscular Hemoglobin Concent 34.3, Red Cell Distribution Width 16.4H, Platelet Count 146L , Mean Platelet Volume 6.5, Neutrophils (%) (Auto) 67.6, Lymphocytes (%) (Auto) 20.8, Monocytes (%) (Auto) 7.7, Eosinophils (%) (Auto) 2.8, Basophils (%) (Auto ) 1.2, Sodium Level 139, Potassium Level 4.1, Chloride Level 101, Carbon Dioxide Level 29, Anion Gap 9, Blood Urea Nitrogen 23H, Creatinine 1.4H, Estimat Glomerular Filtration Rate 37.2, Glucose Level 143H, Calcium Level 8.4L , Phosphorus Level 3.9, Magnesium Level 2.2, Total Bilirubin 0.6, Aspartate Amino Transf (AST/SGOT) 131H, Alanine Aminotransferase (ALT/SGPT) 421H, Alkaline Phosphatase 138H, Total Protein 6.3L, Albumin 3.0L, Globulin 3.3, Albumin/Globulin Ratio 0.9L Height (Feet): 5 Height (Inches): 0.00 Weight (Pounds): 110 General Appearance: WD/WN, no apparent distress EENT: PERRL/EOMI Neck: non-tender, normal alignment Cardiovascular: normal peripheral pulses, normal rate, regular rhythm Respiratory/Chest: chest wall non-tender, lungs clear, normal breath sounds Abdomen: normal bowel sounds, non tender, soft, no organomegaly Extremities: normal range of motion, non-tender Edema: other - no LE edema bilaterally Neurologic: psychologist experimental II-XII grossly normal, no motor/sensory deficits, alert, oriented x 3, responsive, normal mood/affect Skin: normal pigmentation, warm/dry Tenzin Harris D.O. January 30, 2020 15:04
[2020-01-30 16:00] VITALS: BP 108/76
[2020-01-30] MEDS ORDERED: Tubing IV Secondary IV ONE (17:41)
[2020-01-30] MEDS: Ertapenem 1 GM in NS 55 ML IVPB SCH (18:08)
[2020-01-30 20:00] VITALS: BP 109/71
[2020-01-30] MEDS: TraZODone 50mg tab ORAL SCH (21:04)
[2020-01-31] VITALS: BP 109/75
[2020-01-31 04:00] VITALS: BP 106/78
--- NOTE | 2020-01-31 06:22 | General Progress Note ---
Assessment/Plan Problem List: (1) Transaminitis ICD Codes: R74.0 - Nonspecific elevation of levels of transaminase and lactic acid dehydrogenase [LDH] SNOMED: 482371380, 316901884 (2) Pneumonia ICD Codes: J18.9 - Pneumonia, unspecified organism SNOMED: 928683371 (3) Atrial fibrillation with RVR ICD Codes: I48.91 - Unspecified atrial fibrillation SNOMED: 907641230503091 Status: stable Assessment/Plan: elevated LFTS, ? abx related ceftriaxone has been Dc now and LFTS are improving abd us reviewed hepatitis panel neg repeat labs in am will fu Subjective ROS Limited/Unobtainable: No Allergies: Coded Allergies: No Known Allergies (Unverified , 01/22/20) Objective Last 24 Hour Vital Signs Date Time Temp Pulse Resp B/P (MAP) Pulse Ox O2 Delivery O2 Flow Rate FiO2 01/31/20 04:00 104 01/31/20 04:00 98.1 84 18 106/78 (87) 97 01/31/20 00:00 96 01/31/20 00:00 96.9 111 20 109/75 (86) 99 01/30/20 21:05 87 114/71 01/30/20 21:00 Room Air 2.0 Nasal Cannula 01/30/20 20:00 117 01/30/20 20:00 96.9 83 18 109/71 (84) 99 01/30/20 19:40 85 18 98 Nasal Cannula 2.0 28 01/30/20 19:40 98 Nasal Cannula 2.0 28 01/30/20 16:00 96.7 92 18 108/76 (87) 97 01/30/20 16:00 88 01/30/20 12:00 97 01/30/20 12:00 96.8 97 18 100/70 (80) 97 01/30/20 09:08 95 129/68 01/30/20 08:03 Room Air 2.0 Nasal Cannula 01/30/20 08:00 111 01/30/20 08:00 96.5 111 19 116/83 (94) 96 Intake and Output 01/30/20 01/31/20 19:00 07:00 Intake Total 840 ml 360 ml Output Total 200 ml Balance 640 ml 360 ml Intake Oral 840 ml 360 ml Output Urine Total 200 ml # Voids 3 2 Laboratory Tests 01/30/20 07:45: White Blood Count 5.6, Red Blood Count 4.26, Hemoglobin 13.7, Hematocrit 39.9, Mean Corpuscular Volume 94, Mean Corpuscular Hemoglobin 32.2H, Mean Corpuscular Hemoglobin Concent 34.3, Red Cell Distribution Width 16.4H, Platelet Count 146L , Mean Platelet Volume 6.5, Neutrophils (%) (Auto) 67.6, Lymphocytes (%) (Auto) 20.8, Monocytes (%) (Auto) 7.7, Eosinophils (%) (Auto) 2.8, Basophils (%) (Auto ) 1.2, Sodium Level 139, Potassium Level 4.1, Chloride Level 101, Carbon Dioxide Level 29, Anion Gap 9, Blood Urea Nitrogen 23H, Creatinine 1.4H, Estimat Glomerular Filtration Rate 37.2, Glucose Level 143H, Calcium Level 8.4L , Phosphorus Level 3.9, Magnesium Level 2.2, Total Bilirubin 0.6, Aspartate Amino Transf (AST/SGOT) 131H, Alanine Aminotransferase (ALT/SGPT) 421H, Alkaline Phosphatase 138H, Total Protein 6.3L, Albumin 3.0L, Globulin 3.3, Albumin/Globulin Ratio 0.9L Height (Feet): 5 Height (Inches): 0.00 Weight (Pounds): 110 General Appearance: alert EENT: normal ENT inspection Neck: supple Cardiovascular: normal rate Respiratory/Chest: decreased breath sounds Abdomen: normal bowel sounds, non tender, soft Extremities: non-tender Ish Benoit MD January 31, 2020 06:22
[2020-01-31 06:57] LABS: EOSINOPHILS % (AUTO) 1.9 % (0.0-3.0); HEMATOCRIT 39.2 % (37.0-47.0); HEMOGLOBIN 13.4 G/DL (12.0-16.0); LYMPHOCYTES % (AUTO) 24.1 % (20.0-45.0); MEAN CORPUSCULAR VOLUME 93 FL (80-99); MONOCYTES % (AUTO) 8.6 % (1.0-10.0); NEUTROPHILS % (AUTO) 64.5 % (45.0-75.0); PLATELET COUNT 131 K/UL (150-450); RED BLOOD COUNT 4.19 M/UL (4.20-5.40); RED CELL DISTRIBUTION WIDTH 16.1 % (11.6-14.8); WHITE BLOOD COUNT 5.3 K/UL (4.8-10.8)
[2020-01-31 07:09] LABS: PHOSPHORUS 4.7 MG/DL (2.5-4.9)
[2020-01-31 07:11] LABS: ALANINE AMINOTRANSFERASE 334 U/L (12-78); ALBUMIN 2.9 G/DL (3.4-5.0); ALKALINE PHOSPHATASE 138 U/L (46-116); ANION GAP 7 mmol/L (5-15); ASPARTATE AMINO TRANSFERASE 94 U/L (15-37); BILIRUBIN,TOTAL 0.5 MG/DL (0.2-1.0); BLOOD UREA NITROGEN 29 mg/dL (7-18); CALCIUM 8.5 MG/DL (8.5-10.1); CARBON DIOXIDE 30 MMOL/L (21-32); CHLORIDE 101 MMOL/L (98-107); CREATININE 1.3 MG/DL (0.55-1.30); POTASSIUM 4.2 MMOL/L (3.5-5.1); SODIUM 138 MMOL/L (136-145)
--- NOTE | 2020-01-31 07:31 | Pulmonology Progress Note ---
Subjective ROS Limited/Unobtainable: No Interval Events: None new Constitutional: Denies: fever HEENT: Repors: no symptoms Respiratory: Reports: no symptoms Cardiovascular: Reports: no symptoms Gastrointestinal/Abdominal: Denies: nausea, vomiting, diarrhea Psychiatric: Denies: depression Skin: Denies: rash Musculoskeletal: Denies: pain Allergies: Coded Allergies: No Known Allergies (Unverified , 01/22/20) All Systems: reviewed and negative except above - 12 point ROS negative except as listed in HPI Objective Last 24 Hour Vital Signs Date Time Temp Pulse Resp B/P (MAP) Pulse Ox O2 Delivery O2 Flow Rate FiO2 01/31/20 04:00 104 01/31/20 04:00 98.1 84 18 106/78 (87) 97 01/31/20 00:00 96 01/31/20 00:00 96.9 111 20 109/75 (86) 99 01/30/20 21:05 87 114/71 01/30/20 21:00 Room Air 2.0 Nasal Cannula 01/30/20 20:00 117 01/30/20 20:00 96.9 83 18 109/71 (84) 99 01/30/20 19:40 85 18 98 Nasal Cannula 2.0 28 01/30/20 19:40 98 Nasal Cannula 2.0 28 01/30/20 16:00 96.7 92 18 108/76 (87) 97 01/30/20 16:00 88 01/30/20 12:00 97 01/30/20 12:00 96.8 97 18 100/70 (80) 97 01/30/20 09:08 95 129/68 01/30/20 08:03 Room Air 2.0 Nasal Cannula 01/30/20 08:00 111 01/30/20 08:00 96.5 111 19 116/83 (94) 96 Intake and Output 01/30/20 01/31/20 18:59 06:59 Intake Total 840 ml 360 ml Output Total 200 ml Balance 640 ml 360 ml Intake Oral 840 ml 360 ml Output Urine Total 200 ml # Voids 3 2 General Appearance: no acute distress HEENT: normocephalic Respiratory: chest wall non-tender, decreased breath sounds Cardiovascular: normal peripheral pulses Abdomen: normal bowel sounds Extremities: no cyanosis Laboratory Tests 01/30/20 07:45: White Blood Count 5.6, Red Blood Count 4.26, Hemoglobin 13.7, Hematocrit 39.9, Mean Corpuscular Volume 94, Mean Corpuscular Hemoglobin 32.2H, Mean Corpuscular Hemoglobin Concent 34.3, Red Cell Distribution Width 16.4H, Platelet Count 146L , Mean Platelet Volume 6.5, Neutrophils (%) (Auto) 67.6, Lymphocytes (%) (Auto) 20.8, Monocytes (%) (Auto) 7.7, Eosinophils (%) (Auto) 2.8, Basophils (%) (Auto ) 1.2, Sodium Level 139, Potassium Level 4.1, Chloride Level 101, Carbon Dioxide Level 29, Anion Gap 9, Blood Urea Nitrogen 23H, Creatinine 1.4H, Estimat Glomerular Filtration Rate 37.2, Glucose Level 143H, Calcium Level 8.4L , Phosphorus Level 3.9, Magnesium Level 2.2, Total Bilirubin 0.6, Aspartate Amino Transf (AST/SGOT) 131H, Alanine Aminotransferase (ALT/SGPT) 421H, Alkaline Phosphatase 138H, Total Protein 6.3L, Albumin 3.0L, Globulin 3.3, Albumin/Globulin Ratio 0.9L 01/31/20 06:15: White Blood Count 5.3, Red Blood Count 4.19L, Hemoglobin 13.4, Hematocrit 39.2, Mean Corpuscular Volume 93, Mean Corpuscular Hemoglobin 31.9H, Mean Corpuscular Hemoglobin Concent 34.1, Red Cell Distribution Width 16.1H, Platelet Count 131L , Mean Platelet Volume 6.1L, Neutrophils (%) (Auto) 64.5, Lymphocytes (%) (Auto ) 24.1, Monocytes (%) (Auto) 8.6, Eosinophils (%) (Auto) 1.9, Basophils (%) ( Auto) 1.0, Sodium Level 138, Potassium Level 4.2, Chloride Level 101, Carbon Dioxide Level 30, Anion Gap 7, Blood Urea Nitrogen 29H, Creatinine 1.3, Estimat Glomerular Filtration Rate 40.5, Glucose Level 99, Calcium Level 8.5, Phosphorus Level 4.7, Magnesium Level 1.9, Total Bilirubin 0.5, Aspartate Amino Transf (AST/SGOT) 94H, Alanine Aminotransferase (ALT/SGPT) 334H, Alkaline Phosphatase 138H, Total Protein 5.8L, Albumin 2.9L, Globulin 2.9, Albumin/ Globulin Ratio 1.0 Current Medications Medications (Trade) Dose Ordered Sig/Thao Route PRN Reason Start Time Stop Time Status Last Admin Dose Admin Acetaminophen (Tylenol) 650 mg Q4H PRN ORAL Mild Pain (Pain Scale 1-3) 01/22/20 15:45 02/21/20 15:44 01/25/20 03:37 Al Hydroxide/Mg Hydroxide (Mylanta II) 30 ml Q6H PRN ORAL dyspepsia 01/22/20 15:45 02/21/20 15:44 01/25/20 03:38 Apixaban (Eliquis) 2.5 mg Q12HR ORAL 01/25/20 09:00 04/24/20 08:59 01/30/20 21:05 Carvedilol (Coreg) 25 mg EVERY 12 HOURS ORAL 01/28/20 09:00 02/25/20 20:59 01/30/20 21:05 Dextrose (Dextrose 50%) 25 ml Q30M PRN IV Hypoglycemia 01/22/20 15:45 04/21/20 15:44 Dextrose (Dextrose 50%) 50 ml Q30M PRN IV Hypoglycemia 01/22/20 15:45 04/21/20 15:44 Diphenhydramine HCl (Benadryl) 25 mg Q6H PRN ORAL Itching/Pruritis 01/22/20 15:45 02/21/20 15:44 01/25/20 03:35 Docusate Sodium (Colace) 100 mg EVERY 12 HOURS ORAL 01/22/20 21:00 02/21/20 20:59 01/30/20 21:04 Ertapenem 1 gm/ Sodium Chloride 55 ml @ 110 mls/hr Q24H IVPB 01/26/20 18:00 01/31/20 17:59 01/30/20 18:08 Furosemide (Lasix) 40 mg DAILY IV 01/31/20 09:00 02/24/20 14:29 Lidocaine (Lidoderm 5% PATCH) 1 patch DAILY TDERMAL 01/24/20 10:30 04/23/20 10:29 01/30/20 09:08 Ondansetron HCl (Zofran) 4 mg Q4H PRN IVP Nausea & Vomiting 01/23/20 17:30 6/22/20 17:29 01/23/20 17:40 Spironolactone (Aldactone) 25 mg DAILY ORAL 01/27/20 09:00 02/26/20 08:59 01/30/20 09:08 Trazodone HCl (Desyrel) 50 mg BEDTIME ORAL 01/25/20 21:00 02/24/20 20:59 01/30/20 21:04 Assessment/Plan Assessment/Plan IMPRESSION: 1. Right lung pneumonia. 2. Bilateral pleural effusions. 3. Atrial fibrillation. 4. Hypertension. DISCUSSION: Continue rate control as well as anticoagulation, broad-spectrum antibiotics. I will follow carefully. Saturating 96% on 2L/min O2 Anticipate dc on RA Asael Alvares M.D. Asael Alvares MD January 31, 2020 07:31
[2020-01-31 08:06] VITALS: BP 114/73
[2020-01-31] MEDS: Eliquis 2.5mg tablet ORAL SCH ×2 (08:43→20:34)
[2020-01-31] MEDS: Spironolactone 25mg tab ORAL SCH (08:43)
[2020-01-31] MEDS: Docusate 100mg cap ORAL SCH ×2 (08:43→20:34)
[2020-01-31] MEDS: Carvedilol 25mg Tab ORAL SCH ×2 (08:43→20:33)
--- NOTE | 2020-01-31 10:44 | Nephrology Progress Note ---
Assessment/Plan Plan #ANDREA - likely pre-renal azotemia in the setting of renal hypoperfusion due to RVR and sepsis #Sepsis - r/o COVID #CHF- acute on chrobuc #Hypoxemic resp failure due to pneumonia - r/o COVID # Elevated LFTs- due to congestive hepatapathy #HTN #Afib #HLD - replete mag and K - bumex oral 1mg BID - life vest pending - cardiology eval appreciated - continue apixaban 2.5mg BID - continue coreg 25mg BID - continue aldactone 25mg daily - GI consulted for elevated LFTs - trend LFTs - abd Us reviewed - monitor Cr and electrolytes - ID eval - continue ertapenem - pulm eval - antibiotics per ID - monitor bmp mag and phos daily - avoid nephrotoxins - strict I&Os - daily weights Subjective ROS Limited/Unobtainable: No Constitutional: Denies: no symptoms, chills, diaphoresis, fever, malaise, weakness, other HEENT: Denies: no symptoms, eye pain, blurred vision, tearing, double vision, ear pain, ear discharge, nose pain, nose congestion, throat pain, throat swelling, mouth pain, mouth swelling, other Genitourinary: Denies: no symptoms, burning, discharge, frequency, flank pain, hematuria, incontinence, pain, urgency, other Neurologic/Psychiatric: Denies: no symptoms, anxiety, depressed, emotional problems, headache, numbness, paresthesia, pre-existing deficit, seizure, tingling, tremors, weakness, other Subjective breathing stable hep panel neg Cr stable EF 25% Abd US: IMPRESSION: 1. Moderate large left greater than right pleural effusions. 2. Trace ascites along the right liver. Objective Objective Last 24 Hour Vital Signs Date Time Temp Pulse Resp B/P (MAP) Pulse Ox O2 Delivery O2 Flow Rate FiO2 01/31/20 08:43 121 114/73 01/31/20 08:15 Room Air 2.0 Nasal Cannula 01/31/20 08:06 96.8 121 16 114/73 (87) 98 01/31/20 08:01 85 01/31/20 04:00 104 01/31/20 04:00 98.1 84 18 106/78 (87) 97 01/31/20 00:00 96 01/31/20 00:00 96.9 111 20 109/75 (86) 99 01/30/20 21:05 87 114/71 01/30/20 21:00 Room Air 2.0 Nasal Cannula 01/30/20 20:00 117 01/30/20 20:00 96.9 83 18 109/71 (84) 99 01/30/20 19:40 85 18 98 Nasal Cannula 2.0 28 01/30/20 19:40 98 Nasal Cannula 2.0 28 01/30/20 16:00 96.7 92 18 108/76 (87) 97 01/30/20 16:00 88 01/30/20 12:00 97 01/30/20 12:00 96.8 97 18 100/70 (80) 97 Intake and Output 01/30/20 01/31/20 19:00 07:00 Intake Total 840 ml 360 ml Output Total 200 ml Balance 640 ml 360 ml Intake Oral 840 ml 360 ml Output Urine Total 200 ml # Voids 3 2 Laboratory Tests 01/31/20 06:15: White Blood Count 5.3, Red Blood Count 4.19L, Hemoglobin 13.4, Hematocrit 39.2, Mean Corpuscular Volume 93, Mean Corpuscular Hemoglobin 31.9H, Mean Corpuscular Hemoglobin Concent 34.1, Red Cell Distribution Width 16.1H, Platelet Count 131L , Mean Platelet Volume 6.1L, Neutrophils (%) (Auto) 64.5, Lymphocytes (%) (Auto ) 24.1, Monocytes (%) (Auto) 8.6, Eosinophils (%) (Auto) 1.9, Basophils (%) ( Auto) 1.0, Sodium Level 138, Potassium Level 4.2, Chloride Level 101, Carbon Dioxide Level 30, Anion Gap 7, Blood Urea Nitrogen 29H, Creatinine 1.3, Estimat Glomerular Filtration Rate 40.5, Glucose Level 99, Calcium Level 8.5, Phosphorus Level 4.7, Magnesium Level 1.9, Total Bilirubin 0.5, Aspartate Amino Transf (AST/SGOT) 94H, Alanine Aminotransferase (ALT/SGPT) 334H, Alkaline Phosphatase 138H, Total Protein 5.8L, Albumin 2.9L, Globulin 2.9, Albumin/ Globulin Ratio 1.0 Height (Feet): 5 Height (Inches): 0.00 Weight (Pounds): 111 Deo Crespo M.D. January 31, 2020 10:44
--- NOTE | 2020-01-31 11:48 | Cardiology Progress Note ---
Assessment/Plan Status: stable Assessment/Plan Assessment/Plan Status: stable Assessment/Plan Atrial fibrillation Hypertension Pleural effusion ANDREA UTI HLD Respiratory failure Elevated livery function tests Elevated CRP Systolic heart failure Severe pulmonary hypertension PLAN: -CONTINUE coreg to 25 mg BID -LIFE VEST for arrhythmias protection - patient could not afford - will need to arrange ICD outpatient in three months if LV function does not improve -Anticoagulation with Eliquis for AFIB and possible LV thrombus -D/c Amiodarone re elevated LFT - now improving -D/c norvasc -Continue losartan for afterload reduction and BP control -Echocardiogram reviewed with severe PAH and Systolic dysfunction -Will need ischemia evaluation when stable - will arrange as outpatient -No indication for cardioversion, patient hemodynamically stable -Outpatient EP consult for AFIB Ablation and possible ICD -Maintain lasix for diuresis -Continue aldactone 25 mg -Replete electrolytes -Will arrange ENTRESTO as outpatient , will need to d/c losartan at that time -Poor prognosis from cardiac standpoint ok to discharge from cardiac standpoint - patient stable on room air, heart rates controlled, remains hemodynamically stable, no chest pain, LFT improved Subjective Cardiovascular: Reports: no symptoms Respiratory: Reports: no symptoms Gastrointestinal/Abdominal: Reports: no symptoms Genitourinary: Reports: no symptoms Subjective No acute events, stable on room air, heart rates controlled Life vest deferred given funding No fevers no chest pain no shortness of breath LFT improving Objective Last 24 Hour Vital Signs Date Time Temp Pulse Resp B/P (MAP) Pulse Ox O2 Delivery O2 Flow Rate FiO2 01/31/20 08:43 121 114/73 01/31/20 08:15 Room Air 2.0 Nasal Cannula 01/31/20 08:06 96.8 121 16 114/73 (87) 98 01/31/20 08:01 85 01/31/20 04:00 104 01/31/20 04:00 98.1 84 18 106/78 (87) 97 01/31/20 00:00 96 01/31/20 00:00 96.9 111 20 109/75 (86) 99 01/30/20 21:05 87 114/71 01/30/20 21:00 Room Air 2.0 Nasal Cannula 01/30/20 20:00 117 01/30/20 20:00 96.9 83 18 109/71 (84) 99 01/30/20 19:40 85 18 98 Nasal Cannula 2.0 28 01/30/20 19:40 98 Nasal Cannula 2.0 28 01/30/20 16:00 96.7 92 18 108/76 (87) 97 01/30/20 16:00 88 01/30/20 12:00 97 01/30/20 12:00 96.8 97 18 100/70 (80) 97 General Appearance: no apparent distress, alert EENT: PERRL/EOMI, normal ENT inspection, TMs normal, pharynx normal Neck: non-tender, normal alignment, supple, normal inspection, no JVD Rhythm: Afib Cardiovascular: normal rate, arrhythmia, irregularly irregular Respiratory/Chest: chest wall non-tender, lungs clear, normal breath sounds Abdomen: normal bowel sounds, non tender, soft, no organomegaly, no mass Extremities: normal range of motion, non-tender, normal inspection, no calf tenderness, no swelling Neurologic: grey percher II-XII grossly normal, no motor/sensory deficits Intake and Output 01/30/20 01/31/20 18:59 06:59 Intake Total 840 ml 360 ml Output Total 200 ml Balance 640 ml 360 ml Intake Oral 840 ml 360 ml Output Urine Total 200 ml # Voids 3 2 Laboratory Tests Test 01/31/20 06:15 White Blood Count 5.3 K/UL (4.8-10.8) Red Blood Count 4.19 M/UL (4.20-5.40) L Hemoglobin 13.4 G/DL (12.0-16.0) Hematocrit 39.2 % (37.0-47.0) Mean Corpuscular Volume 93 FL (80-99) Mean Corpuscular Hemoglobin 31.9 PG (27.0-31.0) H Mean Corpuscular Hemoglobin Concent 34.1 G/DL (32.0-36.0) Red Cell Distribution Width 16.1 % (11.6-14.8) H Platelet Count 131 K/UL (150-450) L Mean Platelet Volume 6.1 FL (6.5-10.1) L Neutrophils (%) (Auto) 64.5 % (45.0-75.0) Lymphocytes (%) (Auto) 24.1 % (20.0-45.0) Monocytes (%) (Auto) 8.6 % (1.0-10.0) Eosinophils (%) (Auto) 1.9 % (0.0-3.0) Basophils (%) (Auto) 1.0 % (0.0-2.0) Sodium Level 138 MMOL/L (136-145) Potassium Level 4.2 MMOL/L (3.5-5.1) Chloride Level 101 MMOL/L (98-107) Carbon Dioxide Level 30 MMOL/L (21-32) Anion Gap 7 mmol/L (5-15) Blood Urea Nitrogen 29 mg/dL (7-18) H Creatinine 1.3 MG/DL (0.55-1.30) Estimat Glomerular Filtration Rate 40.5 mL/min (>60) Glucose Level 99 MG/DL (74-106) Calcium Level 8.5 MG/DL (8.5-10.1) Phosphorus Level 4.7 MG/DL (2.5-4.9) Magnesium Level 1.9 MG/DL (1.8-2.4) Total Bilirubin 0.5 MG/DL (0.2-1.0) Aspartate Amino Transf (AST/SGOT) 94 U/L (15-37) H Alanine Aminotransferase (ALT/SGPT) 334 U/L (12-78) H Alkaline Phosphatase 138 U/L (46-116) H Total Protein 5.8 G/DL (6.4-8.2) L Albumin 2.9 G/DL (3.4-5.0) L Globulin 2.9 g/dL Albumin/Globulin Ratio 1.0 (1.0-2.7) Butch Brunson MD January 31, 2020 11:48
[2020-01-31 12:00] VITALS: BP 132/87
[2020-01-31] MEDS: Digoxin 0.125mg tab ORAL SCH (15:24)
[2020-01-31 16:00] VITALS: BP 111/79
[2020-01-31] MEDS: Ertapenem 1 GM in NS 55 ML IVPB SCH (17:35)
--- NOTE | 2020-01-31 19:22 | General Progress Note ---
Assessment/Plan Status: stable Assessment/Plan: Assessment/Plan Assessment #Afib RVR, on home atenolol and amiodarone, both are being held #Acute on chronic Systolic Congestive Heart Failure Exacerbation w/ EF of 25%, severe valvular abnormalities, PHTN #Acute hypoxic respiratory failure #COVID vs CAP ; CXR w/ BL effusion and RLL infiltrate, CT chest confirms; COVID test *2 negative #ESBL UTI #Metabolic Acidosis #ANDREA vs CKD #Transaminitis--> Presumed to be 2/2 congestive hepatopathy vs rocephin, improving Plan Appreciate Physician Team Transition to Bumex 1mg PO BID (d/w Cardiology) , Aldactone, Coreg BID Transition to Entresto per Cardio when available as outpatient patient unable to afford LIFE VEST including with social work help. per Cardiology can D/C and f/u as outpatient for ICD eval and EP eval for ablation of afib Eliquis BID START digoxin 0.125mcg daily for better rate control per Cardiology Continue Ertapenem for UTI --> can transition to PO Bactrim upon D/c Trend liver enzymes--> improving Cardiac Diet 01/23: Will obtain abdominal US given liver enzymes although suspect from COVID; obtain lactic acid given metabolic acidosis, and also echo. 01/24: Recommend repeat COVID; pending Abd US . Lasix initiated 01/25: Pending repeat COVID, transition to Ertapenem, continue Diuresis, Replete potassium 01/26: Patient improving w/ diuretics 01/27: continue present care, follow up regarding life vest 01/28: Pending life vest; continue present care 42 minutes spent on this encounter with 23 on counseling and care coordination. D/w cardiology, infectious disease, RN at bedside. Time of note may not reflect time patient was seen Subjective Date patient seen: January 31, 2020 Allergies: Coded Allergies: No Known Allergies (Unverified , 01/22/20) Subjective No acute events overnight per nursing. Patient feels well. No complaints, however intermittently on 2L nasal cannula. Heart rate up to 130-140s during ambulation and 100-110 at rest. Denies any symptoms. Review of systems: Constitutional: Denies: chills, diaphoresis, fever, malaise, weakness, other HEENT: Denies: eye pain, blurred vision, tearing, double vision, ear pain, ear discharge, nose pain, nose congestion, throat pain, throat swelling, mouth pain , mouth swelling, Cardiovascular: Denies: chest pain, edema, lightheadedness, palpitations, syncope, Respiratory: Denies: cough, orthopnea, shortness of breath, SOB with excertion , SOB at rest, sputum, stridor, wheezing, other Gastrointestinal/Abdominal: Denies: abdomen distended, abdominal pain, black stools, tarry stools, blood in stool, constipated, diarrhea, difficulty swallowing, nausea, poor appetite, poor fluid intake, rectal bleeding, vomiting , other Genitourinary: Denies: burning, discharge, frequency, flank pain, hematuria, incontinence, pain, urgency, other Neurologic/Psychiatric: Denies: anxiety, depressed, emotional problems, headache, numbness, paresthesia, pre-existing deficit, seizure, tingling, tremors, weakness, other Endocrine: Denies: excessive sweating, flushing, intolerance to cold, intolerance to heat, increased hunger, increased thirst, increased urine, unexplained weight gain, unexplained weight loss, other MSK: denies joint pains, swelling, stiffness Hematologic/Lymphatic: Denies: anemia, easy bleeding, easy bruising, other Objective Last 24 Hour Vital Signs Date Time Temp Pulse Resp B/P (MAP) Pulse Ox O2 Delivery O2 Flow Rate FiO2 01/31/20 16:00 96.8 103 24 111/79 (90) 98 01/31/20 15:24 103 01/31/20 15:11 117 01/31/20 12:04 129 01/31/20 12:00 96.9 126 18 132/87 (102) 97 01/31/20 08:43 121 114/73 01/31/20 08:15 Room Air 2.0 Nasal Cannula 01/31/20 08:06 96.8 121 16 114/73 (87) 98 01/31/20 08:01 85 01/31/20 04:00 104 01/31/20 04:00 98.1 84 18 106/78 (87) 97 01/31/20 00:00 96 01/31/20 00:00 96.9 111 20 109/75 (86) 99 01/30/20 21:05 87 114/71 01/30/20 21:00 Room Air 2.0 Nasal Cannula 01/30/20 20:00 117 01/30/20 20:00 96.9 83 18 109/71 (84) 99 01/30/20 19:40 85 18 98 Nasal Cannula 2.0 28 01/30/20 19:40 98 Nasal Cannula 2.0 28 Intake and Output 01/30/20 01/31/20 19:00 07:00 Intake Total 840 ml 360 ml Output Total 200 ml Balance 640 ml 360 ml Intake Oral 840 ml 360 ml Output Urine Total 200 ml # Voids 3 2 Laboratory Tests 01/31/20 06:15: White Blood Count 5.3, Red Blood Count 4.19L, Hemoglobin 13.4, Hematocrit 39.2, Mean Corpuscular Volume 93, Mean Corpuscular Hemoglobin 31.9H, Mean Corpuscular Hemoglobin Concent 34.1, Red Cell Distribution Width 16.1H, Platelet Count 131L , Mean Platelet Volume 6.1L, Neutrophils (%) (Auto) 64.5, Lymphocytes (%) (Auto ) 24.1, Monocytes (%) (Auto) 8.6, Eosinophils (%) (Auto) 1.9, Basophils (%) ( Auto) 1.0, Sodium Level 138, Potassium Level 4.2, Chloride Level 101, Carbon Dioxide Level 30, Anion Gap 7, Blood Urea Nitrogen 29H, Creatinine 1.3, Estimat Glomerular Filtration Rate 40.5, Glucose Level 99, Calcium Level 8.5, Phosphorus Level 4.7, Magnesium Level 1.9, Total Bilirubin 0.5, Aspartate Amino Transf (AST/SGOT) 94H, Alanine Aminotransferase (ALT/SGPT) 334H, Alkaline Phosphatase 138H, Total Protein 5.8L, Albumin 2.9L, Globulin 2.9, Albumin/ Globulin Ratio 1.0 Height (Feet): 5 Height (Inches): 0.00 Weight (Pounds): 111 Objective General: WDWN female in NAD, A&O x 4 HEENT: Normocephalic cephalic atraumatic, pupils equal round reactive to light and accommodation, nares patent and no symmetrical, no tonsillar exudates, mucous membranes moist CV: Irregular rate regular rhythm, no murmurs, rubs, or gallops Pulm: Lungs clear to auscultation bilaterally. No wheezes, rhonchi, or rales GI: Soft, nontender, nondistended, bowel sounds present Neuro: CN 2-12 intact bilaterally, no focal signs. Ext: No lower extremity edema bilaterally Skin: no rashes lesions or ulcers Msk: Joints symmetrical in upper extremity and lower extremity bilaterally, no joint swelling. Lymph: No lymphadenopathy in upper extremity and lower extremity Tenzin Harris D.O. January 31, 2020 19:22
[2020-01-31 20:00] VITALS: BP 130/88
[2020-01-31] MEDS: TraZODone 50mg tab ORAL SCH (20:33)
[2020-02-01] VITALS: BP 126/89
[2020-02-01 04:00] VITALS: BP 110/80
[2020-02-01 07:29] LABS: HEMATOCRIT 38.3 % (37.0-47.0); MEAN CORPUSCULAR VOLUME 94 FL (80-99); PLATELET COUNT 122 K/UL (150-450); RED BLOOD COUNT 4.08 M/UL (4.20-5.40); RED CELL DISTRIBUTION WIDTH 15.8 % (11.6-14.8); WHITE BLOOD COUNT 4.2 K/UL (4.8-10.8)
[2020-02-01 07:43] LABS: ANION GAP 8 mmol/L (5-15); BLOOD UREA NITROGEN 23 mg/dL (7-18); CALCIUM 8.5 MG/DL (8.5-10.1); CARBON DIOXIDE 29 MMOL/L (21-32); CHLORIDE 102 MMOL/L (98-107); CREATININE 1.3 MG/DL (0.55-1.30); PHOSPHORUS 4.5 MG/DL (2.5-4.9); POTASSIUM 3.6 MMOL/L (3.5-5.1); SODIUM 139 MMOL/L (136-145)
[2020-02-01 08:00] VITALS: BP 116/84
--- NOTE | 2020-02-01 08:42 | General Progress Note ---
Assessment/Plan Problem List: (1) Transaminitis ICD Codes: R74.0 - Nonspecific elevation of levels of transaminase and lactic acid dehydrogenase [LDH] SNOMED: 091662721, 142858758 (2) Pneumonia ICD Codes: J18.9 - Pneumonia, unspecified organism SNOMED: 440493350 (3) Atrial fibrillation with RVR ICD Codes: I48.91 - Unspecified atrial fibrillation SNOMED: 452732347972969 Status: stable Assessment/Plan: elevated LFTS, ? abx related ceftriaxone has been Dc now and LFTS are improving abd us reviewed hepatitis panel neg repeat labs in am will fu Subjective ROS Limited/Unobtainable: No Allergies: Coded Allergies: No Known Allergies (Unverified , 01/22/20) Objective Last 24 Hour Vital Signs Date Time Temp Pulse Resp B/P (MAP) Pulse Ox O2 Delivery O2 Flow Rate FiO2 02/01/20 04:00 97.5 117 20 110/80 (90) 98 02/01/20 04:00 92 02/01/20 00:00 97.7 90 18 126/89 (101) 100 02/01/20 00:00 90 01/31/20 22:00 98 Nasal Cannula 2.0 28 01/31/20 21:00 Room Air Room Air 01/31/20 20:33 98 116/71 01/31/20 20:00 98.0 103 19 130/88 (102) 98 01/31/20 20:00 112 01/31/20 16:00 96.8 103 24 111/79 (90) 98 01/31/20 15:24 103 01/31/20 15:11 117 01/31/20 12:04 129 01/31/20 12:00 96.9 126 18 132/87 (102) 97 01/31/20 08:43 121 114/73 Intake and Output 01/31/20 02/01/20 18:59 06:59 Intake Total 360 ml 400 ml Balance 360 ml 400 ml Intake Oral 360 ml 400 ml # Voids 2 3 Laboratory Tests 02/01/20 06:03: White Blood Count 4.2L, Red Blood Count 4.08L, Hemoglobin 13.0, Hematocrit 38.3 , Mean Corpuscular Volume 94, Mean Corpuscular Hemoglobin 31.8H, Mean Corpuscular Hemoglobin Concent 33.8, Red Cell Distribution Width 15.8H, Platelet Count 122L, Mean Platelet Volume 6.3L, Neutrophils (%) (Auto) , Lymphocytes (%) (Auto) , Monocytes (%) (Auto) , Eosinophils (%) (Auto) , Basophils (%) (Auto) , Neutrophils % (Manual) [Pending], Lymphocytes % (Manual) [Pending], Platelet Estimate [Pending], Platelet Morphology [Pending], Sodium Level 139, Potassium Level 3.6, Chloride Level 102, Carbon Dioxide Level 29, Anion Gap 8, Blood Urea Nitrogen 23H, Creatinine 1.3, Estimat Glomerular Filtration Rate 40.5, Glucose Level 88, Calcium Level 8.5, Phosphorus Level 4.5 , Magnesium Level 1.8 Height (Feet): 5 Height (Inches): 0.00 Weight (Pounds): 106 General Appearance: no apparent distress EENT: normal ENT inspection Neck: normal alignment Cardiovascular: normal rate Respiratory/Chest: lungs clear Abdomen: normal bowel sounds, non tender, soft Extremities: non-tender Ish Benoit MD Feb 01, 2020 08:42
[2020-02-01] MEDS ORDERED: Bumetanide 1mg tab ORAL SCH (09:00)
[2020-02-01] MEDS: Docusate 100mg cap ORAL SCH (09:30)
[2020-02-01] MEDS: Carvedilol 25mg Tab ORAL SCH (09:30)
[2020-02-01] MEDS: Digoxin 0.125mg tab ORAL SCH (09:30)
[2020-02-01] MEDS: Spironolactone 25mg tab ORAL SCH (09:30)
[2020-02-01] MEDS: Eliquis 2.5mg tablet ORAL SCH (09:31)
--- NOTE | 2020-02-01 09:40 | Cardiology Progress Note ---
Assessment/Plan Status: stable Assessment/Plan Assessment/Plan Status: stable Assessment/Plan Atrial fibrillation Hypertension Pleural effusion ANDREA UTI HLD Respiratory failure Elevated livery function tests Elevated CRP Systolic heart failure Severe pulmonary hypertension PLAN: -CONTINUE coreg to 25 mg BID -LIFE VEST for arrhythmias protection - patient could not afford - will need to arrange ICD outpatient in three months if LV function does not improve -Anticoagulation with Eliquis for AFIB and possible LV thrombus -D/c Amiodarone re elevated LFT - now improving -D/c norvasc -Continue losartan for afterload reduction and BP control -Echocardiogram reviewed with severe PAH and Systolic dysfunction -Will need ischemia evaluation when stable - will arrange as outpatient -No indication for cardioversion, patient hemodynamically stable -Outpatient EP consult for AFIB Ablation and possible ICD -Maintain lasix for diuresis -Continue aldactone 25 mg -Replete electrolytes -Will arrange ENTRESTO as outpatient , will need to d/c losartan at that time -Poor prognosis from cardiac standpoint ok to discharge from cardiac standpoint - patient stable on room air, heart rates controlled, remains hemodynamically stable, no chest pain, LFT improved Subjective Cardiovascular: Reports: no symptoms Respiratory: Reports: no symptoms Gastrointestinal/Abdominal: Reports: no symptoms Genitourinary: Reports: no symptoms Subjective No acute events, stable on room air, heart rates controlled Life vest deferred given funding No fevers no chest pain no shortness of breath LFT improving Plan to d/c today Objective Last 24 Hour Vital Signs Date Time Temp Pulse Resp B/P (MAP) Pulse Ox O2 Delivery O2 Flow Rate FiO2 02/01/20 09:30 109 02/01/20 09:30 109 116/84 02/01/20 08:00 97.7 109 20 116/84 (95) 97 02/01/20 04:00 97.5 117 20 110/80 (90) 98 02/01/20 04:00 92 02/01/20 00:00 97.7 90 18 126/89 (101) 100 02/01/20 00:00 90 01/31/20 22:00 98 Nasal Cannula 2.0 28 01/31/20 21:00 Room Air Room Air 01/31/20 20:33 98 116/71 01/31/20 20:00 98.0 103 19 130/88 (102) 98 01/31/20 20:00 112 01/31/20 16:00 96.8 103 24 111/79 (90) 98 01/31/20 15:24 103 01/31/20 15:11 117 01/31/20 12:04 129 01/31/20 12:00 96.9 126 18 132/87 (102) 97 General Appearance: no apparent distress, alert EENT: PERRL/EOMI, normal ENT inspection, TMs normal, pharynx normal Neck: non-tender, normal alignment, supple, normal inspection, no JVD Rhythm: NSR Cardiovascular: normal peripheral pulses, normal rate, regular rhythm Respiratory/Chest: chest wall non-tender, lungs clear, normal breath sounds, no respiratory distress, no accessory muscle use Abdomen: normal bowel sounds, non tender, soft, no organomegaly Extremities: normal range of motion, non-tender, normal inspection Neurologic: environmental health inspector II-XII grossly normal, no motor/sensory deficits Intake and Output 01/31/20 02/01/20 19:00 07:00 Intake Total 360 ml 400 ml Balance 360 ml 400 ml Intake Oral 360 ml 400 ml # Voids 2 3 Laboratory Tests Test 02/01/20 06:03 White Blood Count 4.2 K/UL (4.8-10.8) L Red Blood Count 4.08 M/UL (4.20-5.40) L Hemoglobin 13.0 G/DL (12.0-16.0) Hematocrit 38.3 % (37.0-47.0) Mean Corpuscular Volume 94 FL (80-99) Mean Corpuscular Hemoglobin 31.8 PG (27.0-31.0) H Mean Corpuscular Hemoglobin Concent 33.8 G/DL (32.0-36.0) Red Cell Distribution Width 15.8 % (11.6-14.8) H Platelet Count 122 K/UL (150-450) L Mean Platelet Volume 6.3 FL (6.5-10.1) L Neutrophils (%) (Auto) % (45.0-75.0) Lymphocytes (%) (Auto) % (20.0-45.0) Monocytes (%) (Auto) % (1.0-10.0) Eosinophils (%) (Auto) % (0.0-3.0) Basophils (%) (Auto) % (0.0-2.0) Neutrophils % (Manual) Pending Lymphocytes % (Manual) Pending Platelet Estimate Pending Platelet Morphology Pending Sodium Level 139 MMOL/L (136-145) Potassium Level 3.6 MMOL/L (3.5-5.1) Chloride Level 102 MMOL/L (98-107) Carbon Dioxide Level 29 MMOL/L (21-32) Anion Gap 8 mmol/L (5-15) Blood Urea Nitrogen 23 mg/dL (7-18) H Creatinine 1.3 MG/DL (0.55-1.30) Estimat Glomerular Filtration Rate 40.5 mL/min (>60) Glucose Level 88 MG/DL (74-106) Calcium Level 8.5 MG/DL (8.5-10.1) Phosphorus Level 4.5 MG/DL (2.5-4.9) Magnesium Level 1.8 MG/DL (1.8-2.4) Butch Brunson MD Feb 01, 2020 09:40
--- NOTE | 2020-02-01 10:12 | Pulmonology Progress Note ---
Subjective ROS Limited/Unobtainable: No Interval Events: None new Constitutional: Denies: fever HEENT: Repors: no symptoms Respiratory: Reports: no symptoms Cardiovascular: Reports: no symptoms Gastrointestinal/Abdominal: Denies: nausea, vomiting, diarrhea Psychiatric: Denies: depression Skin: Denies: rash Musculoskeletal: Denies: pain Allergies: Coded Allergies: No Known Allergies (Unverified , 01/22/20) All Systems: reviewed and negative except above - 12 point ROS negative except as listed in HPI Objective Last 24 Hour Vital Signs Date Time Temp Pulse Resp B/P (MAP) Pulse Ox O2 Delivery O2 Flow Rate FiO2 02/01/20 09:30 109 02/01/20 09:30 109 116/84 02/01/20 08:00 97.7 109 20 116/84 (95) 97 02/01/20 07:55 105 02/01/20 04:00 97.5 117 20 110/80 (90) 98 02/01/20 04:00 92 02/01/20 00:00 97.7 90 18 126/89 (101) 100 02/01/20 00:00 90 01/31/20 22:00 98 Nasal Cannula 2.0 28 01/31/20 21:00 Room Air Room Air 01/31/20 20:33 98 116/71 01/31/20 20:00 98.0 103 19 130/88 (102) 98 01/31/20 20:00 112 01/31/20 16:00 96.8 103 24 111/79 (90) 98 01/31/20 15:24 103 01/31/20 15:11 117 01/31/20 12:04 129 01/31/20 12:00 96.9 126 18 132/87 (102) 97 Intake and Output 01/31/20 02/01/20 19:00 07:00 Intake Total 360 ml 400 ml Balance 360 ml 400 ml Intake Oral 360 ml 400 ml # Voids 2 3 General Appearance: no acute distress HEENT: normocephalic Respiratory: chest wall non-tender, decreased breath sounds Cardiovascular: normal peripheral pulses Abdomen: normal bowel sounds Extremities: no cyanosis Laboratory Tests 02/01/20 06:03: White Blood Count 4.2L, Red Blood Count 4.08L, Hemoglobin 13.0, Hematocrit 38.3 , Mean Corpuscular Volume 94, Mean Corpuscular Hemoglobin 31.8H, Mean Corpuscular Hemoglobin Concent 33.8, Red Cell Distribution Width 15.8H, Platelet Count 122L, Mean Platelet Volume 6.3L, Neutrophils (%) (Auto) , Lymphocytes (%) (Auto) , Monocytes (%) (Auto) , Eosinophils (%) (Auto) , Basophils (%) (Auto) , Differential Total Cells Counted 100, Neutrophils % ( Manual) 76H, Lymphocytes % (Manual) 17L, Monocytes % (Manual) 6, Eosinophils % ( Manual) 1, Basophils % (Manual) 0, Band Neutrophils 0, Platelet Estimate DecreasedL, Platelet Morphology Normal, Anisocytosis 1+, Sodium Level 139, Potassium Level 3.6, Chloride Level 102, Carbon Dioxide Level 29, Anion Gap 8, Blood Urea Nitrogen 23H, Creatinine 1.3, Estimat Glomerular Filtration Rate 40.5 , Glucose Level 88, Calcium Level 8.5, Phosphorus Level 4.5, Magnesium Level 1.8 Current Medications Medications (Trade) Dose Ordered Sig/Thao Route PRN Reason Start Time Stop Time Status Last Admin Dose Admin Acetaminophen (Tylenol) 650 mg Q4H PRN ORAL Mild Pain (Pain Scale 1-3) 01/22/20 15:45 02/21/20 15:44 01/25/20 03:37 Al Hydroxide/Mg Hydroxide (Mylanta II) 30 ml Q6H PRN ORAL dyspepsia 01/22/20 15:45 02/21/20 15:44 01/25/20 03:38 Apixaban (Eliquis) 2.5 mg Q12HR ORAL 01/25/20 09:00 04/24/20 08:59 02/01/20 09:31 Bumetanide (Bumex) 1 mg BID ORAL 02/01/20 09:00 03/02/20 08:59 02/01/20 09:30 Carvedilol (Coreg) 25 mg EVERY 12 HOURS ORAL 01/28/20 09:00 02/25/20 20:59 02/01/20 09:30 Dextrose (Dextrose 50%) 25 ml Q30M PRN IV Hypoglycemia 01/22/20 15:45 04/21/20 15:44 Dextrose (Dextrose 50%) 50 ml Q30M PRN IV Hypoglycemia 01/22/20 15:45 04/21/20 15:44 Digoxin (Lanoxin) 0.125 mg DAILY ORAL 01/31/20 15:00 04/30/20 14:59 02/01/20 09:30 Diphenhydramine HCl (Benadryl) 25 mg Q6H PRN ORAL Itching/Pruritis 01/22/20 15:45 02/21/20 15:44 01/25/20 03:35 Docusate Sodium (Colace) 100 mg EVERY 12 HOURS ORAL 01/22/20 21:00 02/21/20 20:59 02/01/20 09:30 Ertapenem 1 gm/ Sodium Chloride 55 ml @ 110 mls/hr Q24H IVPB 01/26/20 18:00 02/05/20 17:59 01/31/20 17:35 Lidocaine (Lidoderm 5% PATCH) 1 patch DAILY TDERMAL 01/24/20 10:30 04/23/20 10:29 02/01/20 09:31 Ondansetron HCl (Zofran) 4 mg Q4H PRN IVP Nausea & Vomiting 01/23/20 17:30 02/22/20 17:29 01/23/20 17:40 Spironolactone (Aldactone) 25 mg DAILY ORAL 01/27/20 09:00 02/26/20 08:59 02/01/20 09:30 Trazodone HCl (Desyrel) 50 mg BEDTIME ORAL 01/25/20 21:00 02/24/20 20:59 01/31/20 20:33 Assessment/Plan Assessment/Plan IMPRESSION: 1. Right lung pneumonia. 2. Bilateral pleural effusions. 3. Atrial fibrillation. 4. Hypertension. DISCUSSION: Continue rate control as well as anticoagulation, broad-spectrum antibiotics. I will follow carefully. COVID 19 pcr negative x 2 Saturating 96% on 2L/min O2 Anticipate dc on RA Josr Singh Omar Syed MD Feb 01, 2020 10:12
[2020-02-01 11:43] VITALS: BP 111/78
[2020-02-01] MEDS ORDERED: COREG25 MG ORAL (13:05)
[2020-02-01] MEDS ORDERED: ELIQUIS2.5 MG PO ×2 (13:08→16:14)
[2020-02-01] MEDS ORDERED: BUMETANIDE1 MG ORAL (13:12)
[2020-02-01] MEDS ORDERED: SPIRONOLACTONE25 MG ORAL (13:15)
[2020-02-01] MEDS ORDERED: DIGOXIN0.125 MG/2 ORAL (13:15)
[2020-02-01] MEDS ORDERED: DESYREL50 MG PO (13:18)
[2020-02-01 15:51] VITALS: BP 103/80
[2020-02-01] MEDS ORDERED: LISINOPRIL10 MG ORAL (16:14)
[2020-02-01] MEDS ORDERED: BACTRIM DS TAB1 EAC1 ORAL (16:14)
[2020-02-01] MEDS ORDERED: POTASSIUM CHLO20 ME3 PO (16:14)
[2020-02-01] MEDS ORDERED: CULTURELLE1 EAC2 PO (16:14)
--- NOTE | 2020-02-01 16:16 | Discharge Instructions ---
Discharge Instructions Discharge Instructions Follow up with: PCP, Cardiology Call MD/Return to Hospital if: any concerning symptoms, sob, cp, palpitations Diet: 2 GM sodium (low sodium) Activity: resume normal activities For Congestive Heart Failure Reminder Report to your physician any weight gain of 5 pounds or more in one week. Jeremi Becker MD Feb 01, 2020 16:16
--- NOTE | 2020-02-01 16:30 | Discharge Summary ---
Discharge Summary Hospital Course Date of Admission January 22, 2020 at 13:00 Date of Discharge Feb 01, 2020 at 15:53 Admitting Diagnosis A.fib w/RVR, PNA, possible COVID-19 HPI 69 year old woman with HTN, atrial fibrillation who presented to the ED for rapid heart rate, generalized weakness, high blood pressure and some difficulty breathing. She denies fever or chills, cough or congestion, nausea or vomiting. She has no other complaints. Patient returned to the [place] from [facility] 2 months ago. History obtained from medical record due to language barrier. In ED she was found to have a low grade rapid atrial fibrillation with ANDREA and elevated LFTs on labs. CT chest showed bilateral pleural effusions and rigth base infiltrate. Patient started on broad spectrum antibiotics and referred for admission. Consultations Cardiology ID Nephrology Pulm GI Hospital Course Discharge Dx: #Afib RVR, on home atenolol and amiodarone, both are being held #Acute on chronic Systolic Congestive Heart Failure Exacerbation w/ EF of 25%, severe valvular abnormalities, PHTN #Acute hypoxic respiratory failure #COVID vs CAP ; CXR w/ BL effusion and RLL infiltrate, CT chest confirms; COVID test *2 negative #ESBL UTI #Metabolic Acidosis #ANDREA vs CKD #Transaminitis--> Presumed to be 2/2 congestive hepatopathy vs rocephin, improving Hospital course: Patient was admitted to the hospital and started on diuretics with improvement in her decompensated failure, medications were titrated to optimize her systolic function. Lifevest was not able to be provided and patient will have close follow up in cardiology clinic for ICD. Amiodarone and Norvasc held due to low blood pressure. Patient will continue on anticoagulation. Low-dose lisinopril to start on discharge with holding parameters. Bumex for diuresis w/ po kcl. other goal directed therapies as per dc med list. Received abx in house for questionable PNA and ESBL UTI w/ ertapenem. Will complete 3 days bactrim on dc per ID. COVID 19 PCR neg x 2. Evlauated by GI for elevated LFTs, suspect hepatic congestion w/ CHF w/ possible med effect, down trending. 01/23: Will obtain abdominal US given liver enzymes although suspect from COVID; obtain lactic acid given metabolic acidosis, and also echo. 01/24: Recommend repeat COVID; pending Abd US . Lasix initiated 01/25: Pending repeat COVID, transition to Ertapenem, continue Diuresis, Replete potassium 01/26: Patient improving w/ diuretics 01/27: continue present care, follow up regarding life vest 01/28: Pending life vest; continue present care Discharge Medications New Medications: Lactobacillus Rhamnosus GG (Culturelle) 1 Each Cap.sprink 1 EACH PO BID for 30 Days, CAP Lisinopril* (Lisinopril*) 10 Mg Tablet 2.5 MG ORAL DAILY, #30 TAB Hold for BP < 90/60 Potassium Chloride (Potassium Chloride) 20 Meq Tablet.er 10 MEQ PO DAILY, #30 TAB Trimethoprim/Sulfamethoxazole 160/800* (Bactrim Ds Tablet*) 1 Each Tablet 1 TAB ORAL Q12HR for 3 Days, #6 TAB 0 Refills Continued Medications: Apixaban (Eliquis) 2.5 Mg Tablet 2.5 MG PO EVERY 12 HOURS for afib for 30 Days, TAB (This prescription has been renewed) Aspirin* (Aspirin*) 81 Mg Tab.chew 81 MG ORAL DAILY for PROPHYLAXIS, TAB (This prescription has been renewed) Bumetanide* (Bumetanide*) 1 Mg Tablet 1 MG ORAL BID for Diuretic, TAB (This prescription has been renewed) Carvedilol (Coreg) 25 Mg Tablet 25 MG ORAL EVERY 12 HOURS for heart failure, TAB (This prescription has been renewed) Digoxin* (Digoxin*) 0.125 Mg/2.5 Ml Solution 0.125 MG ORAL DAILY for heart failure, ML 0 Refills (This prescription has been renewed) Spironolactone* (Aldactone*) 25 Mg Tablet 25 MG ORAL DAILY for diuretic, TAB (This prescription has been renewed) Trazodone Hcl (Desyrel) 50 Mg Tablet 50 MG PO for antidepresent, TAB (This prescription has been renewed) Discontinued Medications: Amiodarone Hcl* (Pacerone*) 100 Mg Tablet 100 MG ORAL EVERY 8 HOURS for AFIB, TAB Amlodipine Besylate* (Amlodipine Besylate*) 10 Mg Tablet 10 MG ORAL DAILY for HTN, TAB Atenolol* (Tenormin*) 50 Mg Tablet 50 MG ORAL DAILY for HTN, TAB Discharge Condition Upon Discharge: stable Discharge Vital Signs Last Vital Signs Date Time Temp Pulse Resp B/P (MAP) Pulse Ox O2 Delivery O2 Flow Rate FiO2 02/01/20 15:51 97.6 98 20 103/80 (88) 97 02/01/20 09:00 Room Air Room Air 01/31/20 22:00 2.0 28 Discharge Disposition Patient was discharged to home w/ HH Discharge Instructions Discharge Instructions Follow up with: PCP, Cardiology Call MD/Return to Hospital if: any concerning symptoms, sob, cp, palpitations Activity: resume normal activities Jeremi Becker MD Feb 01, 2020 16:30
--- NOTE | 2020-02-02 09:54 | Nephrology Progress Note ---
Assessment/Plan Plan #ANDREA - likely pre-renal azotemia in the setting of renal hypoperfusion due to RVR and sepsis #Sepsis - r/o COVID #CHF- acute on chrobuc #Hypoxemic resp failure due to pneumonia - r/o COVID # Elevated LFTs- due to congestive hepatapathy #HTN #Afib #HLD - replete mag and K - bumex oral 1mg BID - life vest pending - cardiology eval appreciated - continue apixaban 2.5mg BID - continue coreg 25mg BID - continue aldactone 25mg daily - GI consulted for elevated LFTs - trend LFTs - abd Us reviewed - monitor Cr and electrolytes - ID eval - continue ertapenem - pulm eval - antibiotics per ID - monitor bmp mag and phos daily - avoid nephrotoxins - strict I&Os - daily weights Subjective ROS Limited/Unobtainable: No Constitutional: Denies: no symptoms, chills, diaphoresis, fever, malaise, weakness, other HEENT: Denies: no symptoms, eye pain, blurred vision, tearing, double vision, ear pain, ear discharge, nose pain, nose congestion, throat pain, throat swelling, mouth pain, mouth swelling, other Genitourinary: Denies: no symptoms, burning, discharge, frequency, flank pain, hematuria, incontinence, pain, urgency, other Neurologic/Psychiatric: Denies: no symptoms, anxiety, depressed, emotional problems, headache, numbness, paresthesia, pre-existing deficit, seizure, tingling, tremors, weakness, other Subjective breathing stable hep panel neg Cr stable EF 25% Abd US: IMPRESSION: 1. Moderate large left greater than right pleural effusions. 2. Trace ascites along the right liver. Objective Objective Last 24 Hour Vital Signs Date Time Temp Pulse Resp B/P (MAP) Pulse Ox O2 Delivery O2 Flow Rate FiO2 02/01/20 15:51 97.6 98 20 103/80 (88) 97 02/01/20 11:54 105 02/01/20 11:43 97.8 108 19 111/78 (89) 97 Height (Feet): 5 Height (Inches): 0.00 Weight (Pounds): 106 Deo Crespo M.D. Feb 02, 2020 09:54
== END 2020-02-01 15:53 | disposition home or self-care (01) | DRG 871 ==
LOC: EMR 11:02 → 2E 13:00 → EDBEDREQ 14:43 → 2E 15:54
DX: A41.9 Sepsis, unspecified organism (principal); J18.9 Pneumonia, unspecified organism; I50.23 Acute on chronic systolic (congestive) heart failure; J96.01 Acute respiratory failure with hypoxia; N39.0 Urinary tract infection, site not specified; Z16.12 Extended spectrum beta lactamase (ESBL) resistance; E87.2 Acidosis; N17.9 Acute kidney failure, unspecified; I48.91 Unspecified atrial fibrillation; I11.0 Hypertensive heart disease with heart failure; I27.20 Pulmonary hypertension, unspecified; B96.20 Unspecified Escherichia coli [E. coli] as the cause of diseases classified elsewhere; R74.0 Nonspecific elevation of levels of transaminase and lactic acid dehydrogenase [LDH]; Z79.82 Long term (current) use of aspirin; E78.5 Hyperlipidemia, unspecified
CPT/HCPCS: 36415; 36600; 70450; 71045; 71250; 76700; 80048; 80053; 81003; 82550; 82728; 82803; 83605; 83615; 83735; 84100; 84439; 84443; 84481; 84484; 85007; 85025; 85379; 86140; 86705; 86709; 86803; 87086; 87181; 87340; 87635; 93005; 93306; 94664; 96361; 96365; 96367; 99285; J2405; J7030; J8499